=== PATIENT | male | born 1940 | race Caucasian/White ===

== ENCOUNTER 2023-09-17 06:32 | Inpatient (IN) | payer MEDICARE, OTHER, SELFPAY ==
[2023-09-17] VITALS (7 sets, daily range): BP systolic 96–147; BP diastolic 58–86; PULSE 101–110; RESP 14–30; TEMP 36.2–37.7; O2SAT 92–98; BMI 35.7
--- NOTE | 2023-09-17 | ECG_ITS ---
Test Reason : SOB Blood Pressure : / mmHG Vent. Rate : 109 BPM Atrial Rate : 109 BPM P-R Int : 120 ms QRS Dur : 116 ms QT Int : 362 ms P-R-T Axes : 000 -25 113 degrees QTc Int : 487 ms Sinus tachycardia Left ventricular hypertrophy with QRS widening and repolarization abnormality ( Vichy product ) Cannot rule out Septal infarct , age undetermined Abnormal ECG No previous ECGs available Referred By: Generic ED Physician Electronically Signed By:Leon Marquez
--- NOTE | ~2023-09-17 | XR_ITS ---
EXAMINATION: XR CHEST CLINICAL INFORMATION: Central line placement COMPARISON: Chest x-ray earlier same day TECHNIQUE: Frontal view of the chest was obtained. FINDINGS: Central venous catheter tip in region of SVC right atrial junction. No pneumothorax. Endotracheal tube 4.6 cm above radha. There is opacification of the left lower lobe not seen previously silhouetting the left hemidiaphragm medially Right lung clear. Cardiomediastinal silhouette normal except for calcification of the dorsal aorta. XR/XR chest 1V IMPRESSION: 1. Central venous catheter tip in region of SVC right atrial junction. No pneumothorax. 2. Endotracheal tube 4.6 cm above radha. 3. Left lower lobe opacity not seen previously. Question atelectasis versus pneumonia
--- NOTE | ~2023-09-17 | XR_ITS ---
EXAMINATION: XR CHEST CLINICAL INFORMATION: Endotracheal tube placement S radiograph from 09/17/2023, CT chest from 09/17/2023 COMPARISON: None available. TECHNIQUE: Frontal view of the chest was obtained. FINDINGS: Endotracheal tube approximately 7.3 cm from the level of radha. Enteric tube courses below left hemidiaphragm into the stomach. Bilateral low lung volumes. Prominent interstitial lung markings. No pneumothorax. Small bilateral pleural effusions. Trachea is midline. Cardiac mediastinal silhouette is stable. Aorta demonstrates atherosclerotic calcifications. Multilevel degenerative changes of the thoracolumbar spine. Soft tissues are unremarkable. XR/XR chest 1V IMPRESSION: 1. Endotracheal tube approximately 7.3 cm from the level of radha. 2. Enteric tube courses below left hemidiaphragm into the stomach. 3. Bilateral low lung volumes. 4. Prominent interstitial lung markings. 5. Small bilateral pleural effusions.
--- NOTE | ~2023-09-17 | CT_ITS ---
EXAMINATION: CT CHEST WITHOUT CONTRAST CLINICAL INFORMATION: Evaluate for pneumonia. COMPARISON: Chest x-ray 09/17/2023. TECHNIQUE: Multidetector volumetric CT imaging of the chest was done. Axial MIP volume rendering provided. Sagittal and coronal reformatted images were obtained. This CT examination was performed using dose optimization techniques as appropriate, variously including the following: *Automated exposure control *Adjustment of mA and/or kV according to patient size (this includes techniques or standardized protocols for targeted exams where dose is matched to indication/reason for exam; i.e. extremities or head) *Use of iterative reconstruction technique DLP: 617 mGy-cm. FINDINGS: Exam is limited by image-degrading motion artifact. LUNGS AND PLEURAL SPACES: There are moderate sized pleural effusions with adjacent mild consolidation. Minimal pleural-based opacity measuring less than 5 mm in the anterior aspect of the right middle lobe. MEDIASTINUM: There is calcification of the dorsal aorta. Heart size is unremarkable. No pericardial effusion. Esophagus is unremarkable. No significant lymphadenopathy. Thoracic inlet unremarkable. CORONARY ARTERY CALCIFICATION: None visualized on this study. AXILLA: No lymphadenopathy. UPPER ABDOMEN: Unremarkable. OSSEOUS STRUCTURES: Compression fracture of the T12 vertebral body which appears old/chronic. Degenerative disc changes present at T12-L1 with vacuum disc phenomenon noted. CT/CT chest wo IV con IMPRESSION: 1. Moderate-sized bilateral pleural effusions with adjacent mild consolidation. Likely atelectasis but cannot exclude bilateral pneumonia. 2. Minimal pleural-based nodular opacity in the right middle lobe. Suspect scarring and/or rounded atelectasis. The Fleischner Society recommendations for management of pulmonary nodules are based on average nodule size and patient risk category as follows: Average nodule size 4 - 6 mm: Low Risk Patient: Follow up CT at 12 months; if unchanged, no further follow up. High Risk Patient: Initial follow up CT at 6-12 months, then at 18-24 months if no change. 3. Old/chronic compression fracture T12 vertebral body. 4. Degenerative disc disease at T12-L1. 5. Exam limited by motion artifact. 6. Coronary artery calcifications. Fleischner guidelines were followed.
--- NOTE | ~2023-09-17 | XR_ITS ---
EXAMINATION: XR CHEST CLINICAL INFORMATION: Shortness of breath COMPARISON: None available. TECHNIQUE: Frontal view of the chest was obtained. FINDINGS: Mild increase in interstitial markings bilaterally. Calcification of the dorsal aorta. Cardiac mediastinal silhouette otherwise normal. Bone and soft tissues unremarkable. XR/XR chest 1V IMPRESSION: Mild increase in interstitial markings bilaterally. This could reflect mild pulmonary edema.
--- NOTE | 2023-09-17 07:07 | ED.SOB ---
HPI - SOB/Dyspnea General Chief Complaint: Dyspnea Stated Complaint: SOB Time Seen by Provider: 09/17/23 07:01 Source: patient and EMS Mode of arrival: EMS History of Present Illness ED Provider: Dr Freed HPI Narrative: 82-year-old male brought in from long-term care facility for shortness of breath since this morning, EMS found patient has 79% on room air and placed on 3 L nasal cannula with good response. Patient denies coughing/fever/chills and denies any GI or symptoms. Related Data Allergies Allergy/AdvReac Type Severity Reaction Status Date / Time No Known Allergies Allergy Verified 09/17/23 06:47 Review of Systems Review of Systems: Pertinent positives and negatives as stated in HPI PMF Past Medical History Source: nursing notes reviewed Social History Social History Advance Directives: Yes Advance Directives Information Provided: Yes Advance Directives on File: No Physical Exam Vital Signs: Vital Signs: Last Vital Signs Temp 98.6 F 09/17/23 08:31 Pulse 104 H 09/17/23 08:31 Resp 20 09/17/23 08:31 BP 129/75 09/17/23 08:31 Pulse Ox 94 09/17/23 08:31 O2 Del Method Nasal Cannula 09/17/23 08:31 O2 Flow Rate 3 09/17/23 08:31 Oxygen Flow Rate 3 09/17/23 06:43 BMI result Body Mass Index 35.7 VITAL SIGNS: Reviewed. GENERAL: Well developed, well nourished, in no acute distress. HEAD: Normocephalic/atraumatic EYES: PERRLA, EOMI EARS: Ext canals without abnormality NOSE: Nares patent bilateral OROPHARYNX: no oral lesions noted, posterior pharynx clear NECK: Supple, no adenopathy LUNGS: Diminished throughout, tachypnea and increased work of breathing SpO2<92> on 2 L nasal cannula CARDIOVASCULAR: Regular rate and rhythm without noted murmurs, no JVD but noted 2+ pitting edema in right lower extremity ABDOMEN: Soft, non-tender, non-distended with bowel sounds. : Suprapubic catheter in place with patency of cloudy urine with noted sediment MUSCULOSKELETAL: No tenderness, deformities, or effusions noted on gross inspection. EXTREMITIES: No cyanosis, clubbing or edema. LLE: BKA, no erythema/induration RLE: Erythema noted to lateral aspect of thigh without induration SKIN: Inspection of the skin reveals no rashes NEUROLOGIC: Alert and oriented x 4. Strength and sensation to light touch were grossly intact x 4. Medications Administered Discontinued Medications Generic Name Dose Route Start Last Admin Trade Name Freq PRN Reason Stop Dose Admin Ceftriaxone Sodium 1 gm/ 50 mls @ 100 mls/hr 09/17/23 06:55 09/17/23 08:10 Sodium Chloride IV 09/17/23 07:24 Infused ONCE ONE Infusion Medical Decision Making Medical Decision Making [facility] Narrative: 0712: 82-year-old male with history and clinical presentation, DDX: CHF exacerbation, COPD, viral illness, pneumonia, possible cellulitis. I reviewed all investigations, hematologic indices are chronically stable with a leukocytosis, patient is afebrile, there is a microcytic anemia without history or clinical evidence to suggest acute bleeding, no thrombocytopenia. VBG does not demonstrate any hypercapnia or respiratory acidosis. Chemistry indices negative for ALEXIS there is evidence low sodium/chloride consistent with findings of CHF exacerbation, magnesium is noted to be low and repleted with magnesium sulfate and both BNP/chest x-ray and clinical exam are consistent with CHF exacerbation, patient received 60 mg of Lasix. Patient has also received initial antibiotics. Viral testing negative for influenza/RSV/COVID-19. 0901: I discussed case with inpatient hospitalist who accepts admission Differential Diagnosis Differential Diagnoses: The differential diagnosis associated with the presentation includes Please see the discussion above Admission/Observation Consideration of admission/observation: Escalation of care including admission/observation considered Please see the discussion above Consult Healthcare Provider Management of the patient was discussed with: Hospitalist Please see the discussion above Lab Data [facility] Lab Attestation statement: I reviewed the patient's lab results. Please see the discussion above 09/17/23 07:42 09/17/23 07:42 Labs: Lab Results 09/17/23 09/17/23 Range/Units 07:42 07:48 WBC 13.2 H (4.8-10.8) X10*3/uL RBC 3.67 L (4.60-5.80) X10*6/uL Hgb 9.3 L D (14.0-18.0) g/dl Hct 27.6 L D (42.0-52.0) % MCV 75.2 L (80.0-98.0) fL MCH 25.3 L (27.0-33.0) pg MCHC 33.7 (31.0-36.0) g/dl RDW 15.9 (11.0-16.0) % Plt Count 261 D (160-400) X10*3/uL MPV 8.9 L (9.4-12.4) fL Immature Gran % (Auto) 1.0 H (0.0-0.4) % Neut % (Auto) 82.5 H (45-73) % Lymph % (Auto) 10.8 L (20-40) % [place] % (Auto) 3.1 (2-11) % Eos % (Auto) 2.1 (0-4) % Baso % (Auto) 0.5 (0-2) % Lymph # (Auto) 1.4 (1.2-4.9) X10*3/uL [place] # (Auto) 0.4 (0.1-1.2) X10*3/uL Eos # (Auto) 0.3 (0.0-0.4) X10*3/uL Baso # (Auto) 0.1 (0.0-0.2) X10*3/uL Abs Immat Gran (auto) 0.13 H (0.00-0.03) X10*3/uL Absolute Neuts (auto) 10.9 H (2.0-8.3) x10*3/uL Absolute Nucleated RBC 0.000 (0.0-0.012) X10*3/uL Nucleated RBC % (auto) 0.0 (0.0-0.2) /100WBC VBG pH 7.45 H (7.32-7.43) VBG pCO2 45 mmHg VBG pO2 115 mmHg VBG HCO3 32 H (22-26) mmol/L VBG O2 Saturation 100.0 % VBG Base Excess 7.3 mmol/L Sodium 125 L (135-145) mmol/L Potassium 4.3 (3.3-5.1) mmol/L Chloride 89 L (96-108) mmol/L Carbon Dioxide 26 (22-29) mmol/L Anion Gap 14 (12-20) BUN 14 (9-16) mg/dL Creatinine 0.73 (0.5-1.4) mg/dL Estim Creat Clear Calc 98.2 Estimated GFR > 60 Random Glucose 207 H (60-115) mg/dL Lactic Acid 0.9 (0.5-2.0) mmol/L Calcium 8.6 (8.4-10.2) mg/dL Magnesium 1.4 L* (1.6-2.6) mg/dL Total Bilirubin 0.5 (0.0-1.0) mg/dL AST 8 (5-37) U/L ALT < 5 (0-40) U/L Alkaline Phosphatase 71 (39-117) U/L B-Natriuretic Peptide 615 H (<100) pg/mL Total Protein 6.7 (6.5-8.0) g/dL Albumin 3.6 (3.5-5.0) g/dL Influenza Type A (PCR) NEGATIVE (Negative) Influenza Type B (PCR) NEGATIVE (Negative) RSV RNA Qual (PCR) NEGATIVE (Negative) SARS-CoV-2 RNA (RT-PCR) NEGATIVE (Negative) Independent Interpretation I performed an independent interpretation of an: EKG Interpretation: Sinus tachycardia, HR-109, no STEMI, KS/QTC are within normal limits, QRS prolonged. Radiology Impression Discussion of test interpretation with radiology: I have reviewed the radiologist's reading. Radiologist Impression: Please see the discussion above External Record Review External record reviewed: Outpatient record, Prior outpatient labs and Prior outpatient radiology Chronic Conditions Patient?s care impacted by: Other CHF, COPD, chronic indwelling catheter Critical Care Time Critical Care Time Critical Care Time: Yes Total Critical Care Time: 45 Attestation: I personally attest to this time spent taking care of the patient. Discharge Plan Discharge Clinical Impression: Acute hypoxic respiratory failure, CHF exacerbation Patient Disposition: Admitted As Inpatient Print Language: Salvadorean
[2023-09-17] MEDS: cefTRIAXone sodium 1 GM in 0.9 % Sodium Chloride 50 ML IV (07:48)
[2023-09-17 07:52] LABS: MANUAL DIFF FLAG NO
[2023-09-17 07:56] LABS: Basophils Absolute Auto 0.1 X10*3/uL (0.0-0.2); Basophils Percent Auto 0.5 % (0-2); Eosinophils Absolute Auto 0.3 X10*3/uL (0.0-0.4); Eosinophils Percent Auto 2.1 % (0-4); Hematocrit 27.6 % (42.0-52.0); Hemoglobin 9.3 g/dl (14.0-18.0); Imm Gran Abs Auto 0.13 X10*3/uL (0.00-0.03); Lymphocytes Absolute Auto 1.4 X10*3/uL (1.2-4.9); Lymphocytes Percent Auto 10.8 % (20-40); Mean Corpuscular HGB Conc 33.7 g/dl (31.0-36.0); Mean Corpuscular Hemoglobin 25.3 pg (27.0-33.0); Mean Corpuscular Volume 75.2 fL (80.0-98.0); Mean Platelet Volume 8.9 fL (9.4-12.4); Monocytes Absolute Auto 0.4 X10*3/uL (0.1-1.2); Monocytes Percent Auto 3.1 % (2-11); Neutrophils Absolute Auto 10.9 x10*3/uL (2.0-8.3); Neutrophils Percent Auto 82.5 % (45-73); Platelet Count 261 X10*3/uL (160-400); Red Blood Count 3.67 X10*6/uL (4.60-5.80); Red Cell Distribution Width 15.9 % (11.0-16.0); Venous Blood Gas Refer to POC result; White Blood Count 13.2 X10*3/uL (4.8-10.8)
[2023-09-17 07:56] LABS: VBG Base Excess 7.3 mmol/L; VBG HCO3 32 mmol/L (22-26); VBG pCO2 45 mmHg; VBG pH 7.45 (7.32-7.43); VBG pO2 115 mmHg
[2023-09-17 08:14] LABS: Lactic Acid 0.9 mmol/L (0.5-2.0)
[2023-09-17 08:20] LABS: B Type Natriuretic Peptide 615 pg/mL (<100)
[2023-09-17 08:22] LABS: Alanine Aminotransferase < 5 U/L (0-40); Albumin Level 3.6 g/dL (3.5-5.0); Alkaline Phosphatase 71 U/L (39-117); Anion Gap 14 (12-20); Aspartate Amino Transferase 8 U/L (5-37); Bilirubin Total 0.5 mg/dL (0.0-1.0); Blood Urea Nitrogen 14 mg/dL (9-16); Calcium 8.6 mg/dL (8.4-10.2); Carbon Dioxide 26 mmol/L (22-29); Chloride 89 mmol/L (96-108); Creatinine Clr Calc Pharmacy 98.2; Estimated Glomerular Filt Rate > 60; Glucose Random 207 mg/dL (60-115); Magnesium 1.4 mg/dL (1.6-2.6); Potassium 4.3 mmol/L (3.3-5.1); Sodium 125 mmol/L (135-145); Total Protein 6.7 g/dL (6.5-8.0)
[2023-09-17 08:41] LABS: Influenza A PCR NEGATIVE (Negative); Influenza B PCR NEGATIVE (Negative); Resp Syncy Virus RNA Qual PCR NEGATIVE (Negative); SARS COV2 PCR INHOUSE NEGATIVE (Negative)
[2023-09-17] MEDS: Furosemide 100 MG/10 ML VIAL 60 MG IVPUSH (09:05)
[2023-09-17] MEDS: Magnesium Sulfate/H2O 2 GM/50 ML PIGGYBACK IV (09:05)
--- NOTE | 2023-09-17 10:12 | PHA.MEDREC ---
Pharmacy Consult ? Medication Reconciliation Pharmacy has completed the medication reconciliation. [facility] list [facility] Trulicity 2 injections of the 0.75mg pen (TD=1.5mg) every Monday.
--- NOTE | 2023-09-17 11:19 | P.HPHOSP_ITS ---
History of Present Illness Date of Service: 09/17/23 Attending physician on admission: Roderick Sims Chief Complaint: SOB, hypoxia Addendum: CT of chest found moderate sized bilateral pleural effusions with adjacent mild consolidation, likely atelectasis but can not exclude bilateral pneumonia. Patient with then meet sepsis criteria due to leukocytosis and tachycardia, though patient was adequately treated with broad-spectrum antibiotics in the ED, and lactic acid WNL. Will continue to cover patient with ceftriaxone and add azithromycin, started 09/17/2023. Pt is an 82-year-old male with a PMH significant for?CAD s/p stenting in 2002, aortic stenosis, insulin-dependent type 2 diabetes, HLD, BPH, and chronic suprapubic catheter in place who presents to the ED from SNF for evaluation of shortness of breath and hypoxia. ?Patient reports he was in his normal state of health last night but when he awoke this morning at 06:00 he suddenly felt like he could not breathe. Reports 30+ pack-year smoking history quit 21 years ago, left denies history of COPD and is not on home inhalers or home O2. who is at bedside notes patient's lower right leg appears much more swollen than normal. Patient denies any other symptoms reporting he otherwise feels at baseline. Chronic nonproductive cough at baseline. Denies fever, chills. No nausea, vomiting, abdominal pain. Denies orthopnea. Of note, patient has had a complicated medical history since 03/2022 when he fell and broke his foot that was not initially caught on x-rays. 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 Since then patient has been in and out of rehab. Patient's reports he has been noncompliant with his prosthetic and slowly declined as he is unable/unwilling to care for himself. Of additional note, patient [place] [facility] [place] which showed moderate to severely increased LV wall thickness, low-normal LV systolic function though unable to assess LVEF. Also found moderate diastolic dysfunction and [id number] aortic stenosis. In the ED pt with low-grade temp 100 degrees, tachycardia to 110, tachypnea up to 30, and desatting as low as 92% on 3 L NC. Labs were significant for leukocytosis of 13.2, microcytic anemia of H&H 9.3/27.6, sodium 125, magnesium 1.4, and BNP 615. CXR showed mild increase in interstitial markings bilaterally, likely reflecting mild pulmonary edema. Tested negative for flu, RSV, COVID. EKG demonstrated sinus tachycardia without evidence of significant ST elevations or depressions. Pt was treated with Mag sulfate, ceftriaxone, and furosemide 60 mg IV. Pt will be admitted to the hospital for treatment further evaluation of acute hypoxic respiratory failure in the setting of new onset CHF. Review of Systems 2 Review of Systems: Shortness of breath, difficulty breathing Increased right lower extremity edema Chronic nonproductive cough at baseline Denies fever, chills, nausea, vomiting, abdominal pain No chest pain/pressure, palpitations Denies orthopnea [facility] Medical History Umbilical hernia HLD (hyperlipidemia) GERD (gastroesophageal reflux disease) Suprapubic catheter Insulin dependent type 2 diabetes mellitus CAD (coronary artery disease) Aortic stenosis Social History Household Members: Spouse Housing: Other Housing Other:: Mobile Home Do you presently have visiting nurse or other home services: Yes ( couple times a week ) Patient Tobacco Use Status: Former Tobacco user Tobacco use type: Cigarette Smoked in Last 30 Days: No Use of substances other than those prescribed or required for medical reasons: No Currently Displaying Signs/Symptoms of Drug Intoxication Withdrawal: No Have you been hit, kicked, punched, or otherwise hurt by someone within the past year? If so, by whom?: No Do you feel safe in your current relationship?: No Is there a partner from a previous relationship who is making you feel unsafe now?: No Are you made to feel afraid or neglected: No Advance Directives: Yes Advance Directives Information Provided: Yes Advance Directives on File: No Advance Directives Date on File: 09/17/23 Do you have a plan to hurt others: No Plan Recently lost weight without trying: No How much weight loss: Not applicable Eating poorly because of decreased appetite: No Nutrition screen score: 0 Nutrition Risks: No Nutritional Risk Poor oral hygiene: No Meds Allergies Allergy/AdvReac Type Severity Reaction Status Date / Time No Known Allergies Allergy Verified 09/17/23 06:47 Home Medications ?Medication ?Instructions ?Recorded ?Confirmed ?Last Taken ?Type acetaminophen 325 mg tablet 650 mg PO Q6H PRN Pain 09/17/23 09/17/23 Unknown History aspirin 81 mg tablet,delayed 81 mg PO QAM 09/17/23 09/17/23 Unknown History release bisacodyl 10 mg rectal suppository 10 mg NE DAILY PRN Constipation 09/17/23 09/17/23 Unknown History cholecalciferol (vitamin D3) 25 25 mcg PO QAM 09/17/23 09/17/23 Unknown History mcg (1,000 unit) capsule (Vitamin D3) clotrimazole 1 % lotion 1 appl topical BID 09/17/23 09/17/23 Unknown History dulaglutide 0.75 mg/0.5 mL 1.5 mg subcut TU 09/17/23 09/17/23 Unknown History subcutaneous pen injector (Trulicity) finasteride 5 mg tablet 5 mg PO DAILY 09/17/23 09/17/23 Unknown History furosemide 40 mg tablet 40 mg PO DAILY 09/17/23 09/17/23 Unknown History insulin glargine 100 unit/mL (3 26 unit subcut BEDTIME 09/17/23 09/17/23 Unknown History mL) subcutaneous pen (Basaglar KwikPen U-100 Insulin) insulin lispro 100 unit/mL 26 unit subcut TIDAC 09/17/23 09/17/23 Unknown History subcutaneous solution (Humalog U-100 Insulin) magnesium hydroxide 400 mg/5 mL 30 ml PO DAILY PRN Constipation 09/17/23 09/17/23 Unknown History oral suspension (Milk of Magnesia) metoprolol succinate 100 mg 100 mg PO QAM 09/17/23 09/17/23 Unknown History tablet,extended release 24 hr omeprazole 20 mg capsule,delayed 20 mg PO DAILY 09/17/23 09/17/23 Unknown History release psyllium husk 0.4 gram capsule 0.8 g PO DAILY PRN Constipation 09/17/23 09/17/23 Unknown History (Metamucil) sertraline 25 mg tablet 25 mg PO DAILY 09/17/23 09/17/23 Unknown History simvastatin 40 mg tablet 40 mg PO BEDTIME 09/17/23 09/17/23 Unknown History sodium phosphates 19 gram-7 118 ml NE DAILY PRN Constipation 09/17/23 09/17/23 Unknown History gram/118 mL enema (Fleet Enema) tamsulosin 0.4 mg capsule 0.4 mg PO BEDTIME 09/17/23 09/17/23 Unknown History triamcinolone acetonide 0.1 % 1 appl topical BID 09/17/23 09/17/23 Unknown History topical cream Physical Exam 2 Vital Signs and Narrative: Vital Signs: Last Vital Signs Temp 98.5 F 09/17/23 10:00 Pulse 104 H 09/17/23 10:00 Resp 20 09/17/23 08:31 BP 128/75 09/17/23 10:00 Pulse Ox 94 09/17/23 08:31 O2 Del Method Nasal Cannula 09/17/23 10:00 O2 Flow Rate 3 09/17/23 10:00 Oxygen Flow Rate 3 09/17/23 06:43 BMI result Body Mass Index 35.7 Constitutional: Alert, in no acute distress. Mental Status: Oriented to person, place and time. Eyes: Pupils are equal, round, and reactive to light. Ear, Nose, and Throat: Oropharynx clear, mucous membranes moist. Ears and nose without deformities. Trachea midline. Respiratory: Clear to auscultation bilaterally. No wheezing, rales, or rhonchi. Cardiovascular: S1, S2 regular rhythm, tachy. 3/6 systolic murmur heard at left sternal border. No JVD. Gastrointestinal: Abdomen soft, non-tender, non-distended. Normal bowel sounds. Reducible umbilical hernia. Neurologic: Cranial nerves II-XII are grossly intact bilaterally. No focal neurological deficits. Moves all extremities spontaneously. Skin: Warm, dry. Extremities: 3+ right lower leg pitting edema. Left BKA. Psychiatric: Normal mood and affect. Results Labs 09/18/23 10:02 09/18/23 10:02 Labs: Laboratory Results - last 24 hr 09/17/23 09/17/23 07:42 07:48 MCV 75.2 L MCH 25.3 L MCHC 33.7 RDW 15.9 Plt Count 261 D MPV 8.9 L Immature Gran % (Auto) 1.0 H Neut % (Auto) 82.5 H Lymph % (Auto) 10.8 L [place] % (Auto) 3.1 Eos % (Auto) 2.1 Baso % (Auto) 0.5 Lymph # (Auto) 1.4 [place] # (Auto) 0.4 Eos # (Auto) 0.3 Baso # (Auto) 0.1 Abs Immat Gran (auto) 0.13 H Absolute Neuts (auto) 10.9 H Absolute Nucleated RBC 0.000 Nucleated RBC % (auto) 0.0 VBG pH 7.45 H VBG pCO2 45 VBG pO2 115 VBG HCO3 32 H VBG O2 Saturation 100.0 VBG Base Excess 7.3 Anion Gap 14 Estim Creat Clear Calc 98.2 Estimated GFR > 60 Random Glucose 207 H Lactic Acid 0.9 Calcium 8.6 Magnesium 1.4 L* Total Bilirubin 0.5 AST 8 ALT < 5 Alkaline Phosphatase 71 B-Natriuretic Peptide 615 H Total Protein 6.7 Albumin 3.6 Influenza Type A (PCR) NEGATIVE Influenza Type B (PCR) NEGATIVE RSV RNA Qual (PCR) NEGATIVE SARS-CoV-2 RNA (RT-PCR) NEGATIVE Imaging Radiologist's Impressions: Impressions Chest X-Ray 09/17/23 07:49 IMPRESSION: Mild increase in interstitial markings bilaterally. This could reflect mild pulmonary edema. Assessment and Plan (1) CHF exacerbation: Status: Acute Plan Pt is an 82-year-old male with a PMH significant for?CAD s/p stenting in 2002, aortic stenosis, insulin-dependent type 2 diabetes, HLD, BPH, and chronic suprapubic catheter in place who presents to the ED from SNF for evaluation of shortness of breath and hypoxia. ?Pt will be admitted to the hospital for treatment further evaluation of acute hypoxic respiratory failure in the setting of new onset CHF. Acute hypoxic respiratory failure in the setting of new onset CHF Patient with SOB, desatting into 70s on RA, increased lower leg edema, elevated BNP, CXR with pulmonary edema [place] [facility] [place] systolic function low normal though unable to assess LVEF; also showed moderate diastolic dysfunction and moderate to severe aortic stenosis Review of records indicates Pro-BNP [place] 3884 [place] [facility] [place] Patient given Lasix 60 mg IV in ED Her treat with Lasix 40 mg b.i.d. Follow electrolytes, Mag, I/O Daily weights Cardiology consult Monitor on telemetry Hyponatremia Pt's sodium 125 at time of presentation Likely in the setting of CHF, though patient with long history of similar hyponatremia Treat with diuretics as above 1,500 ml fluid restriction Will start on valsartan 40mg p.o. bid Closely monitor sodium levels Leukocytosis WBCs 13.2 at time of presentation Unclear etiology: possibly reactionary Pt does not meet sepsis criteria as there is no clear source of infection at this time Pt denies productive cough, polyuria/dysuria, abd pain, N/V/D Review or records indicates WBCs [place] 13.4 [place] [facility] [place] Lactic acid WNL 0.9 Patient received empiric ceftriaxone in the ED Will hold on additional antibiotics pending additional workup Will check procalcitonin, CT of chest Hypomagnesemia Magnesium 1.4 at time of presentation Given Mag 2 g IV in the ED Trend labs, replenish as necessary Insulin-dependent type 2 diabetes SSI, Lantus Diabetic diet HLD Continue statin BPH Continue tamsulosin DNI Attending:?Dr. Sims DVT Prophylaxis: Lovenox Pt will require a hospitalization of at least two nights for treatment of?acute hypoxic respiratory failure in the setting of new onset CHF. Patient will require hospitalization due to administration of supplemental oxygen, IV diuretics, close monitoring of labs and cardiac function, and specialist consultation with Cardiology. Quality Stroke Does the patient have a stroke diagnosis?: No VTE Prior VTE?: No VTE Risk Level:: Medical - moderate - high VTE Device Contraindication: Treatment Not Indicated VTE Drug Contraindication: N/A - Med Ordered
[2023-09-17 13:22] LABS: Procalcitonin 0.03 ng/mL
--- NOTE | 2023-09-17 13:26 | PC.NURSE ---
patient cheng cath emptied initially at 09 when patient given iv lasix. patient cheng cath emptied now of 2100 ml of urine, as charted in intake and output
[2023-09-17] MEDS: Valsartan 40 MG TABLET PO ×2 (14:35→22:19)
[2023-09-17 15:15] LABS: Anion Gap 15 (12-20); Blood Urea Nitrogen 14 mg/dL (9-16); Calcium 8.6 mg/dL (8.4-10.2); Carbon Dioxide 28 mmol/L (22-29); Chloride 86 mmol/L (96-108); Creatinine Clr Calc Pharmacy 95.5; Estimated Glomerular Filt Rate > 60; Glucose Random 317 mg/dL (60-115); Potassium 4.3 mmol/L (3.3-5.1); Sodium 125 mmol/L (135-145)
[2023-09-17] MEDS: Enoxaparin Sodium 40 MG/0.4 ML SYRINGE SUBCUT (16:05)
[2023-09-17] MEDS: Aspirin Enteric Coated 81 MG TABLET.DR PO (16:05)
[2023-09-17] MEDS: Sertraline HCL 25 MG TABLET PO (16:06)
[2023-09-17] MEDS: Omeprazole 20 MG CAPSULE.DR PO (16:06)
[2023-09-17] MEDS: Metoprolol Succinate ER 100 MG TAB.ER.24H PO (16:06)
[2023-09-17] MEDS: Cholecalciferol (Vitamin D3) 25 MCG TABLET PO (16:06)
[2023-09-17] MEDS: Finasteride 5 MG TABLET PO (16:11)
[2023-09-17 17:44] LABS: Magnesium 1.7 mg/dL (1.6-2.6)
[2023-09-17 17:46] LABS: Glucose, Whole Blood 331 mg/dL (60-115)
[2023-09-17] MEDS: Furosemide 40 MG/4 ML VIAL IVPUSH (18:49)
[2023-09-17] MEDS: Insulin Lispro 100 UNIT/ML 3 ML VIAL SUBCUT ×2 (18:49→22:10)
[2023-09-17 18:52] LABS: Glucose, Whole Blood 313 mg/dL (60-115)
[2023-09-17] MEDS: Azithromycin 500 MG in 0.9 % Sodium Chloride 250 ML 125 MG IV (19:26)
[2023-09-17 21:34] LABS: Glucose, Whole Blood 439 mg/dL (60-115)
[2023-09-17] MEDS: Tamsulosin HCL 0.4 MG CAPSULE PO (21:35)
[2023-09-17] MEDS: Acetaminophen 325 MG TABLET 650 MG PO (21:35)
[2023-09-17] MEDS: Insulin Glargine,Hum.rec.anlog 100 UNIT/ML 10 ML VIAL 18 UNIT SUBCUT (21:35)
[2023-09-17] MEDS: Atorvastatin Calcium 20 MG TABLET PO (21:35)
--- NOTE | 2023-09-17 21:38 | PC.NURSE ---
Eros text sent to Dr. Dai regarding POC 439. Pending order
[2023-09-17] MEDS: Insulin Regular, Human 100 UNIT/ML 3 ML VIAL IVPUSH (22:08)
[2023-09-17 22:23] LABS: Appearance Urine Clear; Color Urine Yellow; Glucose Urine UA 100 mg/dL (Negative); Leukocyte Esterase Urine Moderate (2+) (Negative); Nitrite Urine Negative (Negative); Specific Gravity - Urine 1.015 (1.005-1.025); UMIC TRIGGER UACC YES; Urine Blood Small (1+) (Negative); Urine Ketones Negative (Negative); Urine Protein 100 (2+) mg/dL (Neg-Trace)
[2023-09-17 22:44] LABS: Bacteria Urine None Seen (None Seen); UACC Culture Trigger YES; WBC Urine >50 /HPF (0-5)
[2023-09-18] VITALS (21 sets, daily range): BP systolic 64–148; BP diastolic 28–99; PULSE 72–98; RESP 15–20; TEMP 35–38.5; O2SAT 94–100; BMI 35.9; BMI 34.2
--- NOTE | 2023-09-18 | ECG_ITS ---
Test Reason : RHYTHM CHANGE Blood Pressure : / mmHG Vent. Rate : 098 BPM Atrial Rate : 098 BPM P-R Int : 118 ms QRS Dur : 124 ms QT Int : 396 ms P-R-T Axes : -05 -25 179 degrees QTc Int : 505 ms Normal sinus rhythm Minimal voltage criteria for LVH, may be normal variant ( Juan Pablo product ) Cannot rule out Anteroseptal infarct (cited on or before 17-SEP-2023) Abnormal ECG When compared with ECG of 17-SEP-2023 06:54, No significant changes seen Referred By: Donnie Wagoner Electronically Signed By:DENISA SANDERS
[2023-09-18] MEDS: 0.9 % Sodium Chloride Flush 3 ML SYRINGE IVFLUSH ×3 (01:57→16:03)
[2023-09-18] MEDS: Omeprazole 20 MG CAPSULE.DR PO (06:19)
[2023-09-18] MEDS: cefTRIAXone sodium 1 GM in 0.9 % Sodium Chloride 50 ML IV (06:19)
[2023-09-18 06:29] LABS: Hematocrit 24.3 % (42.0-52.0); Hemoglobin 8.1 g/dl (14.0-18.0); Mean Corpuscular HGB Conc 33.3 g/dl (31.0-36.0); Mean Corpuscular Hemoglobin 25.1 pg (27.0-33.0); Mean Corpuscular Volume 75.2 fL (80.0-98.0); Mean Platelet Volume 9.1 fL (9.4-12.4); Platelet Count 283 X10*3/uL (160-400); Red Blood Count 3.23 X10*6/uL (4.60-5.80); Red Cell Distribution Width 15.7 % (11.0-16.0); White Blood Count 14.1 X10*3/uL (4.8-10.8)
[2023-09-18 06:38] LABS: Anion Gap 12 (12-20); Blood Urea Nitrogen 18 mg/dL (9-16); Calcium 8.3 mg/dL (8.4-10.2); Carbon Dioxide 29 mmol/L (22-29); Chloride 87 mmol/L (96-108); Estimated Glomerular Filt Rate > 60; Glucose Random 157 mg/dL (60-115); Magnesium 1.6 mg/dL (1.6-2.6); Potassium 3.8 mmol/L (3.3-5.1); Sodium 124 mmol/L (135-145)
--- NOTE | 2023-09-18 07:00 | CA_ITS ---
Transthoracic Echocardiogram Patient (Last, First, Middle): Colten Mahajan, Gender: Male Date of : 1940 Age: 82 Procedure Date: 09/18/2023 Procedure Type: Transthoracic Echocardiogram Location: ICU Height: 177.8 cm Weight: 107.96 kg BSA: 2.25 m2 Heart Rate: 88 bpm BP: 70 / 28 mmHg Coke Oven Mason: SB Referring MD: Donnie Wagoner MD Symptoms: s/p cardiac arrest Study Quality: Adequate ECG Rhythm: Sinus Conclusions: - Normal left ventricular cavity size. There is normal left ventricular wall thickness. The left ventricular systolic function is mildly decreased. The visually estimated ejection fraction is between 40-45%. - Regional wall motion abnormalities can not be excluded due to suboptimal endocardial definition in particular distal anterior and apical hypokinesis cannot be ruled out. - There is severe aortic valve stenosis. The peak aortic velocity is 3.73 m/s with a calculated peak gradient of 56 mmHg. The mean gradient is 33 mmHg. The aortic valve area is 0.59 cm2. Findings Left Ventricle Normal left ventricular cavity size. There is normal left ventricular wall thickness. The left ventricular systolic function is mildly decreased. The visually estimated ejection fraction is between 40-45%. Regional wall motion abnormalities can not be excluded due to suboptimal endocardial definition. Abnormal diastolic function is noted. Spectral Doppler is indicative of a restrictive filling pattern. Elevated filling pressures. Right Ventricle Normal right ventricular cavity size and systolic function. Atria The left atrium is likely dilated. The right atrium is normal in size. Aortic Valve There is severe calcification of the aortic valve. There is severe aortic valve stenosis. The peak aortic velocity is 3.73 m/s with a calculated peak gradient of 56 mmHg. The mean gradient is 33 mmHg. The aortic valve area is 0.59 cm2. There is no aortic valve regurgitation. Mitral Valve The mitral valve appears normal. There is trace mitral valve regurgitation. There is no mitral valve stenosis. Pulmonic Valve The pulmonic valve is likely normal. Tricuspid Valve Likely normal tricuspid valve structure and function. Tricuspid regurgitation envelope is inadequate for calculation of right ventricular systolic pressure. Indeterminate right atrial pressure. Mild to moderate pulmonary hypertension is present. Great Vessels There is mild dilatation of the sinuses of Valsalva measuring 3.90 cm and mild dilatation of the ascending aorta measuring 4.00 cm. Venous The inferior vena cava is dilated and does not collapse with inspiration. Pericardium/Pleural There is no evidence of pericardial effusion. Prior Study Comparison No prior study available for comparison. Measurements 2D Linear Measurements IVSd: 0.91 0.6-0.9/0.6-1.0 cm LVIDd: 5.31 3.9-5.3/4.2-5.9 cm LVIDd Index: 2.36 2.4-3.2/2.2-3.1 cm/m2 LVIDs: 4.27 2.0-3.6 cm LVPWd: 0.94 0.7-1.1 cm LA Diam: 4.40 2.7-3.8/3.0-4.0 cm LAIDs Index: 1.96 1.5-2.3 cm/m2 LV Mass: 224.76 67-162/88-224 g LV Mass Index: 99.89 43-95/49-115 g/m2 LVOT Diam: 2.30 3.0+(-)1.3 cm 2D Systolic Function EF 4C: 42.20 >55% EF 2C: 32.20 >55% EF BiP: 39.40 >55% Mitral Valve MV Pk E: 1.00 MV PK A: 0.39 MV Decel Time: 163.00 E/A: 2.60 E'Medial: 4.19 E/E' Med: 23.80 PHT: 48.00 MVA PHT: 4.58 Decel Putnam: 6.14 Aortic Valve AoV Pk Cedrick: 3.73 AoV Mn Cedrick: 2.69 AoV VTI: 0.71 AoV Pk Grad: 56.00 Aov Mn Grad: 33.00 ANNA Cont.VTI: 0.59 LVOT LVOT Pk Cedrick: 0.57 LVOT Mn Cedrick: 0.38 LVOT VTI: 0.10 LVOT Pk Grad: 1.00 LVOT Mn Grad: 1.00 LVOT Diam: 2.30 LVOT Area: 4.15 Diastolic Function MV Pk E: 1.00 MV Pk A: 0.39 E/A: 2.60 E'Medial: 4.19 E/E' Med: 23.80 Right Ventricle TAPSE (mm): 18.30 TVS' Cedrick: 9.80 Tricuspid Valve TR Pk Cedrick: 3.01 TR Pk Grad: 36.00 RA Press: 15.00 RVSP: 51.00 Great Vessels Aorta Sinus of Valsalva: 3.90 2.0-3.5 cm Ao Asc: 4.00 2.1-3.4 cm Pulmonary Valve PV Pk Cedrick: 0.61 Peak PV Grad: 1.00 Updated in Other Vendor System with Status of Final Leon Marquez MD electronically signed on 09/18/2023 1:42:11 PM with status of Final
[2023-09-18 07:22] LABS: Glucose, Whole Blood 152 mg/dL (60-115)
[2023-09-18] MEDS: Insulin Lispro 100 UNIT/ML 3 ML VIAL SUBCUT ×2 (08:02→12:08)
[2023-09-18] MEDS: Aspirin Enteric Coated 81 MG TABLET.DR PO (08:03)
[2023-09-18] MEDS: Sertraline HCL 25 MG TABLET PO (08:03)
[2023-09-18] MEDS: Finasteride 5 MG TABLET PO (08:03)
[2023-09-18] MEDS: Cholecalciferol (Vitamin D3) 25 MCG TABLET PO (08:03)
[2023-09-18 08:34] LABS: Iron 35 mcg/dL (45-160); Percent Iron Saturation 14 % (15-50); Total Iron Binding Capacity 256 mcg/dL (228-428); Unsaturated Iron Binding 221 ug/dL
[2023-09-18] MEDS: Valsartan 40 MG TABLET PO (08:42)
[2023-09-18] MEDS: Metoprolol Succinate ER 100 MG TAB.ER.24H PO (08:42)
[2023-09-18] MEDS: Furosemide 40 MG/4 ML VIAL IVPUSH (08:42)
[2023-09-18 08:47] LABS: Ferritin 46 ng/mL (20-250)
[2023-09-18 08:49] LABS: B Type Natriuretic Peptide 1309 pg/mL (<100)
--- NOTE | 2023-09-18 09:21 | PC.NURSE ---
Addendum entered by Neva Kelly RN 09/18/23 09:38: VARNISHING UNIT OPERATOR was called before dafne hernandez Original Note: Pt incontinent with BM , RN and HYDRANT SETTER was cleaning the pt , repositioning and pt stated that he his dizzy and became unresponsive . Dafne hernandez was called at 9:08 .
--- NOTE | 2023-09-18 09:32 | PM.EVENT ---
Event Note Date of Service: 09/18/23 Event Note: patient became pulseless, code blue called, patient DNI but not DNR, ACLS started, called patient's , Paty, who requested change of status to full code. Time Spent With Patient Time: Total time managing care of this patient today ____ minutes.
[2023-09-18] MEDS: Amiodarone HCL 900 MG in 0.9 % Sodium Chloride 500 ML 34.53 MG IVCONT (09:34)
[2023-09-18] MEDS: Norepinephrine Bitartrate/D5W 8 MG/250 ML PLAST..BAG 20.29 MG IV (09:38)
[2023-09-18] MEDS: propofoL 1,000 MG/100 ML VIAL 19.48 MG IVCONT ×2 (10:06→16:03)
[2023-09-18 10:07] LABS: VBG Base Excess 0.5 mmol/L; VBG HCO3 25 mmol/L (22-26); VBG pCO2 43 mmHg; VBG pH 7.37 (7.32-7.43); VBG pO2 43 mmHg
[2023-09-18 10:14] LABS: Hematocrit 25.6 % (42.0-52.0); Hemoglobin 8.4 g/dl (14.0-18.0); Mean Corpuscular HGB Conc 32.8 g/dl (31.0-36.0); Mean Corpuscular Hemoglobin 25.2 pg (27.0-33.0); Mean Corpuscular Volume 76.9 fL (80.0-98.0); Mean Platelet Volume 9.2 fL (9.4-12.4); Platelet Count 375 X10*3/uL (160-400); Red Blood Count 3.33 X10*6/uL (4.60-5.80)
--- NOTE | 2023-09-18 10:20 | W.ED.CONS.HO ---
Consult Details Consult Details: CODE BLUE Procedures Intubation Intubation Type:: Endotracheal Tube Insertion Intubation Date:: 09/18/23 Intubation Time:: 09:20 Time out performed: No sedative: Etomidate Mg Given: 20 paralytic: Rocuronium Mg Given: 100 Laryngoscope: fiber optic video scope ET Tube Size: 7.5 ET Tube Uncuffed: No Tube Secured Depth (cm): 23 Tube Secured Location: teeth Tube Placement Confirmation: visualized tube passing through cords, equal breath sounds bilaterally, no breath sounds over epigastrium and confirmation by capnometry Patient Tolerated Procedure: well Intubation Complications: none
[2023-09-18 10:21] LABS: White Blood Count 30.3 X10*3/uL (4.8-10.8)
[2023-09-18 10:29] LABS: Lactic Acid 5.7 mmol/L (0.5-2.0)
[2023-09-18 10:32] LABS: Alanine Aminotransferase 88 U/L (0-40); Alkaline Phosphatase 60 U/L (39-117); Anion Gap 20 (12-20); Aspartate Amino Transferase 120 U/L (5-37); Bilirubin Total 0.5 mg/dL (0.0-1.0); Blood Urea Nitrogen 20 mg/dL (9-16); Calcium 7.7 mg/dL (8.4-10.2); Carbon Dioxide 21 mmol/L (22-29); Chloride 88 mmol/L (96-108); Creatinine Clr Calc Pharmacy 84.5; Estimated Glomerular Filt Rate > 60; Glucose Random 278 mg/dL (60-115); Magnesium 1.7 mg/dL (1.6-2.6); Phosphorus 4.9 mg/dL (2.7-4.5); Potassium 3.9 mmol/L (3.3-5.1); Sodium 125 mmol/L (135-145); Total Protein 5.5 g/dL (6.5-8.0)
--- NOTE | 2023-09-18 10:33 | MHC.CM.PN ---
Addendum entered by Jocelyn Granados 09/18/23 13:04: Pt will be transferred to [facility] for higher level of care. Original Note: Pt emergently intubated and transferred to the ICU prior to CM intake assessment being done. Pt is a LT resident of [facility], return referral placed in [facility]. Copy of HCP obtained from [facility], now on file. This CM will call pts HCP to complete CM assessment and address IMM.
--- NOTE | 2023-09-18 10:48 | PM.EVENT ---
Event Note Date of Service: 09/18/23 Event Note: 82yo M with CAD s/p RCA PCI 2002, severe aortic stenosis followed by Dr Calixto [place] [facility], and DM2 who has been at [facility] since September. He was sent in with dyspnea + hypoxia and noted to be fluid-overloaded. He was also noted to have bilateral pleural effusions with consolidation that could be atelectasis or pneumonia. PCT low but WBC elevated. Na was 125 but some degree of this is chronic and he is on a 1.5L fluid restriction at the [facility]. He was admitted to the [facility] with IV furosemide and IV ceftriaxone + azithromycin. This morning when I rounded on him he was awake, alert, and denying any dyspnea or chest pain. He had diuresed approximately -1.6L. Within 2 minutes after I left the room, he became altered and HR slowed down to the 30s. OUTBOUND TELEMARKETER was called. He subsequently became apneic and pulseless and CPR was started. Underlying rhythm was junctional bradycardia. He was ventilated by bag-valve mask and given IV epinephrine with chest compressions. He had some spontaneous breathing activity and return of pulse but lost these 2x, prompting 2 more rounds of epinephrine and chest compressions with ROSC. He subsequently developed monomorphic Vtach and was given amiodarone 300 mg, then 150 mg, then started on a drip. Rhythm subsequently became AF with rate in the 110s. BP 132 but then dropped to 58. He was started on IV NS via pressure bag then norepinephrine drip. Code status was clarified with his [he had been listed as DNI] and she insisted that he be intubated. ED physician Dr Guerra directed RSI/intubation, which was achieved using etomidate 20 mg + rocuronium 100 mg for indction/paralysis. He was transferred to the ICU for further care. Time Spent With Patient Time: Total time managing care of this patient today ____ minutes.
[2023-09-18 10:55] LABS: B Type Natriuretic Peptide 858 pg/mL (<100)
[2023-09-18 10:58] LABS: Troponin-I High Sensitivity 4767.1 ng/L (<3.5-35.0)
[2023-09-18 10:58] LABS: Venous Blood Gas Refer to POC result
[2023-09-18 10:59] LABS: SLIDE REVIEW MANUAL DIFF
[2023-09-18 11:03] LABS: Band Neutrophils Percent 14 % (3-5); Basophils Abs Manual 0.6 X10*3/uL (0.0-0.2); Basophils Percent Manual 2 % (0-2); Lymphocytes Absolute Manual 4.2 X10*3/uL (1.2-4.9); Lymphocytes Percent Manual 14 % (20-40); Monocytes Absolute Manual 0.9 X10*3/uL (0.1-1.2); Monocytes Percent Manual 3 % (2-11); Neutrophils Absolute Manual 24.5 X10*3/uL (2.0-8.3); Neutrophils Percent Manual 67 % (45-73)
[2023-09-18 11:05] LABS: Burr Cells 3+ (>5) /OIF; Ovalocytes 1+ (5-14) /OIF; RBC Morphology NOTED; Schistocytes 1+ (0-2) /OIF
[2023-09-18 11:06] LABS: Platelet Estimate NORMAL (NORMAL); Platelet Morphology Comment NORMAL
--- NOTE | 2023-09-18 11:30 | PM.CNCAR ---
History of Present Illness History of Present Illness Date of Service: 09/18/23 Requesting physician: Donnie Wagoner Chief complaint: New onset heart failure, , cardiac arrest. Narrative: 82-year-old gentleman who presented from nursing facility with shortness of breath. He has known history of moderate severe aortic valve stenosis and has been following with Dr. Calixto at [facility]. Most of the history is taken from the and son who were at bedside. He complained of some shortness of breath yesterday and was brought in. Clinically appeared to be in congestive heart failure and was diuresed. Today morning he passed stools and was being cleaned when he said he is feeling dizzy and then had PEA arrest. CPR was started and after epinephrine he did have wide complex tachycardia. Was intubated and sent to the ICU. He is currently on low-dose Levophed and is on a propofol drip. As per the , he has no dementia or memory issues. He has mostly in a wheelchair though. She said they have been seeing Dr. Calixto regularly and he was being monitored for aortic stenosis symptoms. He did not have any symptoms previously. X-ray, imaging and EKGs reviewed. [facility] Past Medical History Medical History (Updated 09/18/23 @ 11:53 by Donnie Wagoner MD) Umbilical hernia HLD (hyperlipidemia) GERD (gastroesophageal reflux disease) Suprapubic catheter Insulin dependent type 2 diabetes mellitus CAD (coronary artery disease) Aortic stenosis Social History Social History Household Members: Spouse Housing: Other Housing Other:: Mobile Home Do you presently have visiting nurse or other home services: Yes ( couple times a week ) Patient Tobacco Use Status: Former Tobacco user Tobacco use type: Cigarette Smoked in Last 30 Days: No Use of substances other than those prescribed or required for medical reasons: No Currently Displaying Signs/Symptoms of Drug Intoxication Withdrawal: No Have you been hit, kicked, punched, or otherwise hurt by someone within the past year? If so, by whom?: No Do you feel safe in your current relationship?: No Is there a partner from a previous relationship who is making you feel unsafe now?: No Are you made to feel afraid or neglected: No Advance Directives: Yes Advance Directives Information Provided: Yes Advance Directives on File: No Advance Directives Date on File: 09/17/23 Do you have a plan to hurt others: No Plan Recently lost weight without trying: No How much weight loss: Not applicable Eating poorly because of decreased appetite: No Nutrition screen score: 0 Nutrition Risks: No Nutritional Risk Poor oral hygiene: No Meds Allergies Allergy/AdvReac Type Severity Reaction Status Date / Time No Known Allergies Allergy Verified 09/17/23 06:47 Active Medications: Current Medications Acetaminophen (Acetaminophen 325 Mg Tablet) 650 mg PO Q6H PRN PRN Reason: Pain, Mild (Pain Scale 1-3) Last Admin: 09/17/23 21:35 Dose: 650 mg Chlorhexidine Gluconate (Chlorhexidine Gluc Oral Rinse 15 Ml Mouthwash) 15 ml BUCCAL TID MESFIN Enoxaparin Sodium (Enoxaparin Sodium 40 Mg/0.4 Ml Syringe) 40 mg SUBCUT Q24H MESFIN Last Admin: 09/17/23 16:05 Dose: 40 mg Furosemide (Furosemide 40 Mg/4 Ml Vial) 40 mg IVPUSH BID@0900,1800 MESFIN; Protocol Last Admin: 09/18/23 08:42 Dose: 40 mg Glucose (Glucose Gel 15 Gm Gel..Gram.) 15 gm PO Q15M PRN; Protocol PRN Reason: per Hypoglycemia Standing Ord. Dextrose (D10) 250 mls @ 750 mls/hr IV Q15M PRN; Protocol PRN Reason: per Hypoglycemia Standing Ord. Ceftriaxone Sodium 1 gm/ (Sodium Chloride) 50 mls @ 100 mls/hr IV Q24H [facility] Last Infusion: 09/18/23 07:28 Dose: Infused Amiodarone HCl 900 mg/ Sodium (Chloride) 518 mls @ 34.533 mls/hr IVCONT .Q15H1M MESFIN; Protocol Last Admin: 09/18/23 09:34 Dose: 1 mg/min, 34.53 mls/hr Propofol (Diprivan) 1,000 mg in 100 mls @ 0 mls/hr IVCONT .Q0M MESFIN; Protocol Last Admin: 09/18/23 10:06 Dose: 30 mcg/kg/min, 19.48 mls/hr Norepinephrine Bitartrate (Levophed) 8 mg in 250 mls @ 0 mls/hr IV .Q0M MESFIN; Protocol Last Admin: 09/18/23 09:38 Dose: 0.1 mcg/kg/min, 20.29 mls/hr Insulin Glargine (Insulin Glargine,Hum.Rec.Anlog 100 Unit/Ml 10 Ml Vial) 24 unit SUBCUT BEDTIME [facility] Insulin Human Lispro (Insulin Lispro 100 Unit/Ml 3 Ml Vial) 0 unit SUBCUT QIDACHS [facility]; Protocol Last Admin: 09/18/23 08:02 Dose: 4 unit Ondansetron HCl (Ondansetron Hcl 4 Mg/2 Ml Vial) 4 mg IVPUSH Q8H PRN PRN Reason: Nausea and Vomiting Pharmacy Consult (Consult Rx Vancomycin Dosing) 1 each MISCELLANE DAILY PRN PRN Reason: Consult order Sodium Chloride (0.9 % Sodium Chloride Flush 3 Ml Syringe) 3 ml IVFLUSH QSHIFT [facility] Last Admin: 09/18/23 08:43 Dose: 3 ml Tamsulosin HCl (Tamsulosin Hcl 0.4 Mg Capsule) 0.4 mg PO BEDTIME [facility] Last Admin: 09/17/23 21:35 Dose: 0.4 mg Home Medications ?Medication ?Instructions ?Recorded ?Confirmed ?Last Taken ?Type acetaminophen 325 mg tablet 650 mg PO Q6H PRN Pain 09/17/23 09/17/23 Unknown History aspirin 81 mg tablet,delayed 81 mg PO QAM 09/17/23 09/17/23 Unknown History release bisacodyl 10 mg rectal suppository 10 mg CO DAILY PRN Constipation 09/17/23 09/17/23 Unknown History cholecalciferol (vitamin D3) 25 25 mcg PO QAM 09/17/23 09/17/23 Unknown History mcg (1,000 unit) capsule (Vitamin D3) clotrimazole 1 % lotion 1 appl topical BID 09/17/23 09/17/23 Unknown History dulaglutide 0.75 mg/0.5 mL 1.5 mg subcut TU 09/17/23 09/17/23 Unknown History subcutaneous [facility] finasteride 5 mg tablet 5 mg PO DAILY 09/17/23 09/17/23 Unknown History furosemide 40 mg tablet 40 mg PO DAILY 09/17/23 09/17/23 Unknown History insulin glargine 100 unit/mL (3 26 unit subcut BEDTIME 09/17/23 09/17/23 Unknown History mL) subcutaneous pen (Basaglar KwikPen U-100 Insulin) insulin lispro 100 unit/mL 26 unit subcut TIDAC 09/17/23 09/17/23 Unknown History subcutaneous solution (Humalog U-100 Insulin) magnesium hydroxide 400 mg/5 mL 30 ml PO DAILY PRN Constipation 09/17/23 09/17/23 Unknown History oral suspension (Milk of Magnesia) metoprolol succinate 100 mg 100 mg PO QAM 09/17/23 09/17/23 Unknown History tablet,extended release 24 hr omeprazole 20 mg capsule,delayed 20 mg PO DAILY 09/17/23 09/17/23 Unknown History release psyllium husk 0.4 gram capsule 0.8 g PO DAILY PRN Constipation 09/17/23 09/17/23 Unknown History (Metamucil) sertraline 25 mg tablet 25 mg PO DAILY 09/17/23 09/17/23 Unknown History simvastatin 40 mg tablet 40 mg PO BEDTIME 09/17/23 09/17/23 Unknown History sodium phosphates 19 gram-7 118 ml CO DAILY PRN Constipation 09/17/23 09/17/23 Unknown History gram/118 mL enema (Fleet Enema) tamsulosin 0.4 mg capsule 0.4 mg PO BEDTIME 09/17/23 09/17/23 Unknown History triamcinolone acetonide 0.1 % 1 appl topical BID 09/17/23 09/17/23 Unknown History topical cream Physical Exam Vital Signs: Vital Signs: Last Vital Signs Temp 98.9 F 09/18/23 07:47 Pulse 78 09/18/23 11:00 Resp 20 09/18/23 11:00 BP 102/49 L 09/18/23 11:00 Pulse Ox 100 09/18/23 11:00 O2 Del Method Mechanical Ventil ation 09/18/23 11:00 O2 Flow Rate 2 09/18/23 07:47 FiO2 70 09/18/23 11:00 Oxygen Flow Rate 3 09/17/23 06:43 BMI result Body Mass Index 34.2 GENERAL APPEARANCE: Sedated and intubated. NECK: no carotid bruit, + jugular venous distention. SKIN: no suspicious lesions, warm and dry. HEART: Ejection systolic murmur no 2nd heart sound, regular rate and rhythm. LUNGS: clear to auscultation anteriorly. ABDOMEN: soft, nontender. EXTREMITIES: no edema. Left-sided amputation. PERIPHERAL PULSES: equal. NEUROLOGIC: No gross deficits, AAO X 3 Objective Labs and Meds 09/18/23 10:02 09/18/23 10:02 Lab results: Laboratory Results - last 24 hr 09/17/23 09/17/23 09/17/23 07:42 14:59 17:42 WBC RBC Hgb Hct MCV MCH MCHC RDW Plt Count MPV Immature Gran % (Auto) Neut % (Auto) Lymph % (Auto) [place] % (Auto) Eos % (Auto) Baso % (Auto) Lymph # (Auto) [place] # (Auto) Eos # (Auto) Baso # (Auto) Abs Immat Gran (auto) Absolute Neuts (auto) Absolute Nucleated RBC Nucleated RBC % (auto) Neutrophils % (Manual) Band Neutrophils % Lymphocytes % (Manual) Monocytes % (Manual) Basophils % (Manual) Abs Neuts (Manual) Lymphocytes # (Manual) Monocytes # (Manual) Basophils # (Manual) Platelet Estimate Plt Morphology Comment RBC Morphology Ovalocytes [place] Cells Schistocytes Smear Tech's Comments VBG pH VBG pCO2 VBG pO2 VBG HCO3 VBG O2 Saturation VBG Base Excess Sodium 125 L Potassium 4.3 Chloride 86 L Carbon Dioxide 28 Anion Gap 15 BUN 14 Creatinine 0.75 Estim Creat Clear Calc 95.5 Estimated GFR > 60 POC Glucose 331 H Random Glucose 317 H Lactic Acid Calcium 8.6 Phosphorus Magnesium 1.7 Iron TIBC % Saturation Unsat Iron Binding Ferritin Total Bilirubin AST ALT Alkaline Phosphatase Troponin I High Sens B-Natriuretic Peptide Total Protein Albumin Procalcitonin 0.03 Urine Color Urine Appearance Urine pH Ur Specific [place] Urine Protein Urine Glucose (UA) Urine Ketones Urine Blood Urine Nitrite Ur Leukocyte Esterase Urine RBC Urine WBC Ur Squamous Epith Cells Urine Bacteria Hyaline Casts 09/17/23 09/17/23 09/17/23 18:44 21:29 22:17 WBC RBC Hgb Hct MCV MCH MCHC RDW Plt Count MPV Immature Gran % (Auto) Neut % (Auto) Lymph % (Auto) [place] % (Auto) Eos % (Auto) Baso % (Auto) Lymph # (Auto) [place] # (Auto) Eos # (Auto) Baso # (Auto) Abs Immat Gran (auto) Absolute Neuts (auto) Absolute Nucleated RBC Nucleated RBC % (auto) Neutrophils % (Manual) Band Neutrophils % Lymphocytes % (Manual) Monocytes % (Manual) Basophils % (Manual) Abs Neuts (Manual) Lymphocytes # (Manual) Monocytes # (Manual) Basophils # (Manual) Platelet Estimate Plt Morphology Comment RBC Morphology Ovalocytes [place] Cells Schistocytes Smear Tech's Comments VBG pH VBG pCO2 VBG pO2 VBG HCO3 VBG O2 Saturation VBG Base Excess Sodium Potassium Chloride Carbon Dioxide Anion Gap BUN Creatinine Estim Creat Clear Calc Estimated GFR POC Glucose 313 H 439 H* Random Glucose Lactic Acid Calcium Phosphorus Magnesium Iron TIBC % Saturation Unsat Iron Binding Ferritin Total Bilirubin AST ALT Alkaline Phosphatase Troponin I High Sens B-Natriuretic Peptide Total Protein Albumin Procalcitonin Urine Color Yellow Urine Appearance Clear Urine pH 6.0 Ur Specific [place] 1.015 Urine Protein 100 (2+) H Urine Glucose (UA) 100 H Urine Ketones Negative Urine Blood Small (1+) H Urine Nitrite Negative Ur Leukocyte Esterase Moderate (2+) H Urine RBC 3-5 H Urine WBC >50 H Ur Squamous Epith Cells 3-5 Urine Bacteria None Seen Hyaline Casts 3-5 09/18/23 09/18/23 09/18/23 06:02 07:09 09:59 WBC 14.1 H RBC 3.23 L Hgb 8.1 L Hct 24.3 L MCV 75.2 L MCH 25.1 L MCHC 33.3 RDW 15.7 Plt Count 283 MPV 9.1 L Immature Gran % (Auto) Neut % (Auto) Lymph % (Auto) [place] % (Auto) Eos % (Auto) Baso % (Auto) Lymph # (Auto) [place] # (Auto) Eos # (Auto) Baso # (Auto) Abs Immat Gran (auto) Absolute Neuts (auto) Absolute Nucleated RBC 0.000 Nucleated RBC % (auto) 0.0 Neutrophils % (Manual) Band Neutrophils % Lymphocytes % (Manual) Monocytes % (Manual) Basophils % (Manual) Abs Neuts (Manual) Lymphocytes # (Manual) Monocytes # (Manual) Basophils # (Manual) Platelet Estimate Plt Morphology Comment RBC Morphology Ovalocytes [place] Cells Schistocytes Smear Tech's Comments VBG pH 7.37 VBG pCO2 43 VBG pO2 43 VBG HCO3 25 VBG O2 Saturation 66.0 VBG Base Excess 0.5 Sodium 124 L Potassium 3.8 Chloride 87 L Carbon Dioxide 29 Anion Gap 12 BUN 18 H Creatinine 0.74 Estim Creat Clear Calc 97.0 Estimated GFR > 60 POC Glucose 152 H Random Glucose 157 H Lactic Acid Calcium 8.3 L Phosphorus Magnesium 1.6 Iron 35 L TIBC 256 % Saturation 14 L Unsat Iron Binding 221 Ferritin 46 Total Bilirubin AST ALT Alkaline Phosphatase Troponin I High Sens B-Natriuretic Peptide 1309 H Total Protein Albumin Procalcitonin Urine Color Urine Appearance Urine pH Ur Specific [place] Urine Protein Urine Glucose (UA) Urine Ketones Urine Blood Urine Nitrite Ur Leukocyte Esterase Urine RBC Urine WBC Ur Squamous Epith Cells Urine Bacteria Hyaline Casts 09/18/23 10:02 WBC 30.3 H* RBC 3.33 L Hgb 8.4 L Hct 25.6 L MCV 76.9 L MCH 25.2 L MCHC 32.8 RDW 16.0 Plt Count 375 D MPV 9.2 L Immature Gran % (Auto) Cancelled Neut % (Auto) Cancelled Lymph % (Auto) Cancelled [place] % (Auto) Cancelled Eos % (Auto) Cancelled Baso % (Auto) Cancelled Lymph # (Auto) Cancelled [place] # (Auto) Cancelled Eos # (Auto) Cancelled Baso # (Auto) Cancelled Abs Immat Gran (auto) Cancelled Absolute Neuts (auto) Cancelled Absolute Nucleated RBC 0.000 Nucleated RBC % (auto) 0.0 Neutrophils % (Manual) 67 Band Neutrophils % 14 H Lymphocytes % (Manual) 14 L Monocytes % (Manual) 3 Basophils % (Manual) 2 Abs Neuts (Manual) 24.5 H Lymphocytes # (Manual) 4.2 Monocytes # (Manual) 0.9 Basophils # (Manual) 0.6 H Platelet Estimate NORMAL Plt Morphology Comment NORMAL RBC Morphology NOTED Ovalocytes 1+ (5-14) [place] Cells 3+ (>5) Schistocytes 1+ (0-2) Smear Tech's Comments MANUAL DIFF VBG pH VBG pCO2 VBG pO2 VBG HCO3 VBG O2 Saturation VBG Base Excess Sodium 125 L Potassium 3.9 Chloride 88 L Carbon Dioxide 21 L Anion Gap 20 BUN 20 H Creatinine 0.83 Estim Creat Clear Calc 84.5 Estimated GFR > 60 POC Glucose Random Glucose 278 H Lactic Acid 5.7 H* Calcium 7.7 L D Phosphorus 4.9 H Magnesium 1.7 Iron TIBC % Saturation Unsat Iron Binding Ferritin Total Bilirubin 0.5 AST 120 H ALT 88 H Alkaline Phosphatase 60 Troponin I High Sens 4767.1 H* B-Natriuretic Peptide 858 H Total Protein 5.5 L Albumin 3.0 L Procalcitonin Urine Color Urine Appearance Urine pH Ur Specific [place] Urine Protein Urine Glucose (UA) Urine Ketones Urine Blood Urine Nitrite Ur Leukocyte Esterase Urine RBC Urine WBC Ur Squamous Epith Cells Urine Bacteria Hyaline Casts Imaging Radiologist's impression: Impressions Chest CT 09/17/23 13:12 IMPRESSION: 1. Moderate-sized bilateral pleural effusions with adjacent mild consolidation. Likely atelectasis but cannot exclude bilateral pneumonia. 2. Minimal pleural-based nodular opacity in the right middle lobe. Suspect scarring and/or rounded atelectasis. The Fleischner Society recommendations for management of pulmonary nodules are based on average nodule size and patient risk category as follows: Average nodule size 4 - 6 mm: Low Risk Patient: Follow up CT at 12 months; if unchanged, no further follow up. High Risk Patient: Initial follow up CT at 6-12 months, then at 18-24 months if no change. 3. Old/chronic compression fracture T12 vertebral body. 4. Degenerative disc disease at T12-L1. 5. Exam limited by motion artifact. 6. Coronary artery calcifications. Fleischner guidelines were followed. Chest X-Ray 09/18/23 09:40 IMPRESSION: 1. Endotracheal tube approximately 7.3 cm from the level of radha. 2. Enteric tube courses below left hemidiaphragm into the stomach. 3. Bilateral low lung volumes. 4. Prominent interstitial lung markings. 5. Small bilateral pleural effusions. Assessment and Plan (1) CHF exacerbation: Status: Acute (2) Cardiac arrest: Status: Acute Plan 82-year-old with aortic stenosis presenting with CHF who had PEA arrest. He is currently on vent and low dose levophed. No dynamic ECG changes. Doubt that this is ACS. Cause for pulseless electrical activity severe aortic valve stenosis. Detailed discussion with and son. He is known to Dr. Calixto at [facility]. After discussion we have decided to transfer him to [facility] CCU service for further management. If he makes a reasonable recovery then he will need assessment for transcatheter aortic valve replacement. Thank you for allowing me to participate in the care of your patient. Please feel free to contact me if you have any questions. Procedures Date of Service Date of Service: 09/18/23
[2023-09-18 11:33] LABS: MRSA Nasal PCR POSITIVE (Negative); SA Nasal PCR POSITIVE (Negative)
[2023-09-18 11:48] LABS: Glucose, Whole Blood 282 mg/dL (60-115)
--- NOTE | 2023-09-18 11:51 | P.DS_ITS ---
DS: Providers Provider Date of Service: 09/18/23 Date of admission: 09/17/23 12:58 Primary care physician: Alaina Fontenot MD Consults: 09/17/23 13:31 Consult to Cardiology Routine Consulting Provider: [facility] Reason for consultation: New onset CHF; echo @ [facility] [place] on 09/1009/18/23 02:05 Consult to Wound Care Routine Reason for consultation: stage 2 sheered areas to bilat buttocks 09/18/23 07:44 Consult to Nephrology Routine Consulting Provider: [facility] Reason for consultation: hypoNa, CHF 09/18/23 10:01 Consult to Cardiology Routine Consulting Provider: [facility] Reason for consultation: s/p VTach and subsequent cardiac arrest DS: Transfer Hospital Acceptance Reason for Transfer: Aortic stenosis evaluation Name of Facility: [facility] Accepting Provider: Dr. Callahan DS: Diagnosis Discharge Diagnosis (1) CHF exacerbation: Status: Acute (2) Cardiac arrest: Status: Acute (3) Severe aortic stenosis: Status: Acute (4) Acute hypoxic respiratory failure: Status: Acute (5) CAD (coronary artery disease): Status: Acute (6) Insulin dependent type 2 diabetes mellitus: Status: Acute DS: Summary Hospital Course Hospital Course: 82-year-old gentleman with underlying coronary artery disease status post RCA PCI in 2002, severe aortic stenosis followed by Cardiology at [facility], diabetes mellitus admitted on 09/17/2023 with hypoxia secondary to congestive heart failure exacerbation and started on IV diuresis. On 09/17 at approximately 09:30 patient with rapid onset of bradycardia deteriorating to PEA cardiac arrest. CPR started immediately. Returned spontaneous circulation achieved after total of 3 rounds of CPR with cardiac read thereafter deteriorating to V-tach and patient loaded with amiodarone drip. He was intubated during the CPR. Patient was evaluated by Cardiology service and transfer to [facility] for evaluation of underlying severe aortic stenosis was requested and granted. Discharge medications: Propofol drip, amiodarone drip, Levophed drip Time Attestation Total time managing care of this patient today: 60 mintues. Discharge Coordination Time (in mins): 60 Quality: Safe Use of Opioids Does Pt have an Active Cancer Diagnosis on the Problem List?: No Quality: Stroke Does the patient have a stroke diagnosis?: No Physical Exam Vital Signs: Vital Signs: Last Vital Signs Temp 98.9 F 09/18/23 07:47 Pulse 75 09/18/23 11:10 Resp 20 09/18/23 11:00 BP 106/51 L 09/18/23 11:10 Pulse Ox 100 09/18/23 11:00 O2 Del Method Mechanical Ventil ation 09/18/23 11:00 O2 Flow Rate 2 09/18/23 07:47 FiO2 70 09/18/23 11:00 Oxygen Flow Rate 3 09/17/23 06:43 BMI result Body Mass Index 34.2 Const: General: no acute distress and other (Sedated on ventilatory support) Nutritional Appearance: obese Eyes: Sclerae: sclerae normal EOM: EOMs intact bilaterally Neck: Neck: Yes no lymphadenopathy, Yes trachea midline and Yes supple Resp: Auscultation: crackles (Bilateral) Cardio: Rate: regular rate Rhythm: regular rhythm Heart sounds: no gallops, no murmurs and no rubs GI: Palpation (GI): Soft to palpation and Other GI palpation findings present ( Nontender) Auscultation: normal bowel sounds Extrem: General: No clubbing, No cyanosis and Yes edema (1+ bilateral) DS: Data Data Completed and Pending Labs on day of discharge: Laboratory Results - last 24 hr 09/17/23 09/17/23 09/17/23 07:42 14:59 17:42 WBC RBC Hgb Hct MCV MCH MCHC RDW Plt Count MPV Immature Gran % (Auto) Neut % (Auto) Lymph % (Auto) [place]kes % (Auto) Eos % (Auto) Baso % (Auto) Lymph # (Auto) [place] # (Auto) Eos # (Auto) Baso # (Auto) Abs Immat Gran (auto) Absolute Neuts (auto) Absolute Nucleated RBC Nucleated RBC % (auto) Neutrophils % (Manual) Band Neutrophils % Lymphocytes % (Manual) Monocytes % (Manual) Basophils % (Manual) Abs Neuts (Manual) Lymphocytes # (Manual) Monocytes # (Manual) Basophils # (Manual) Platelet Estimate Plt Morphology Comment RBC Morphology Ovalocytes [place] Cells Schistocytes Smear Tech's Comments VBG pH VBG pCO2 VBG pO2 VBG HCO3 VBG O2 Saturation VBG Base Excess Sodium 125 L Potassium 4.3 Chloride 86 L Carbon Dioxide 28 Anion Gap 15 BUN 14 Creatinine 0.75 Estim Creat Clear Calc 95.5 Estimated GFR > 60 POC Glucose 331 H Random Glucose 317 H Lactic Acid Calcium 8.6 Phosphorus Magnesium 1.7 Iron TIBC % Saturation Unsat Iron Binding Ferritin Total Bilirubin AST ALT Alkaline Phosphatase Troponin I High Sens B-Natriuretic Peptide Total Protein Albumin Procalcitonin 0.03 Urine Color Urine Appearance Urine pH Ur Specific [place] Urine Protein Urine Glucose (UA) Urine Ketones Urine Blood Urine Nitrite Ur Leukocyte Esterase Urine RBC Urine WBC Ur Squamous Epith Cells Urine Bacteria Hyaline Casts Nasal Screen MRSA (PCR) Nasal S. aureus Screen Nasal MRSA/S.aureus Interp 09/17/23 09/17/23 09/17/23 18:44 21:29 22:17 WBC RBC Hgb Hct MCV MCH MCHC RDW Plt Count MPV Immature Gran % (Auto) Neut % (Auto) Lymph % (Auto) [place] % (Auto) Eos % (Auto) Baso % (Auto) Lymph # (Auto) [place] # (Auto) Eos # (Auto) Baso # (Auto) Abs Immat Gran (auto) Absolute Neuts (auto) Absolute Nucleated RBC Nucleated RBC % (auto) Neutrophils % (Manual) Band Neutrophils % Lymphocytes % (Manual) Monocytes % (Manual) Basophils % (Manual) Abs Neuts (Manual) Lymphocytes # (Manual) Monocytes # (Manual) Basophils # (Manual) Platelet Estimate Plt Morphology Comment RBC Morphology Ovalocytes [place] Cells Schistocytes Smear Tech's Comments VBG pH VBG pCO2 VBG pO2 VBG HCO3 VBG O2 Saturation VBG Base Excess Sodium Potassium Chloride Carbon Dioxide Anion Gap BUN Creatinine Estim Creat Clear Calc Estimated GFR POC Glucose 313 H 439 H* Random Glucose Lactic Acid Calcium Phosphorus Magnesium Iron TIBC % Saturation Unsat Iron Binding Ferritin Total Bilirubin AST ALT Alkaline Phosphatase Troponin I High Sens B-Natriuretic Peptide Total Protein Albumin Procalcitonin Urine Color Yellow Urine Appearance Clear Urine pH 6.0 Ur Specific [place] 1.015 Urine Protein 100 (2+) H Urine Glucose (UA) 100 H Urine Ketones Negative Urine Blood Small (1+) H Urine Nitrite Negative Ur Leukocyte Esterase Moderate (2+) H Urine RBC 3-5 H Urine WBC >50 H Ur Squamous Epith Cells 3-5 Urine Bacteria None Seen Hyaline Casts 3-5 Nasal Screen MRSA (PCR) Nasal S. aureus Screen Nasal MRSA/S.aureus Interp 09/18/23 09/18/23 09/18/23 06:02 07:09 08:59 WBC 14.1 H RBC 3.23 L Hgb 8.1 L Hct 24.3 L MCV 75.2 L MCH 25.1 L MCHC 33.3 RDW 15.7 Plt Count 283 MPV 9.1 L Immature Gran % (Auto) Neut % (Auto) Lymph % (Auto) Wilkes % (Auto) Eos % (Auto) Baso % (Auto) Lymph # (Auto) [place] # (Auto) Eos # (Auto) Baso # (Auto) Abs Immat Gran (auto) Absolute Neuts (auto) Absolute Nucleated RBC 0.000 Nucleated RBC % (auto) 0.0 Neutrophils % (Manual) Band Neutrophils % Lymphocytes % (Manual) Monocytes % (Manual) Basophils % (Manual) Abs Neuts (Manual) Lymphocytes # (Manual) Monocytes # (Manual) Basophils # (Manual) Platelet Estimate Plt Morphology Comment RBC Morphology Ovalocytes [place] Cells Schistocytes Smear Tech's Comments VBG pH VBG pCO2 VBG pO2 VBG HCO3 VBG O2 Saturation VBG Base Excess Sodium 124 L Potassium 3.8 Chloride 87 L Carbon Dioxide 29 Anion Gap 12 BUN 18 H Creatinine 0.74 Estim Creat Clear Calc 97.0 Estimated GFR > 60 POC Glucose 152 H Random Glucose 157 H Lactic Acid Calcium 8.3 L Phosphorus Magnesium 1.6 Iron 35 L TIBC 256 % Saturation 14 L Unsat Iron Binding 221 Ferritin 46 Total Bilirubin AST ALT Alkaline Phosphatase Troponin I High Sens B-Natriuretic Peptide 1309 H Total Protein Albumin Procalcitonin Urine Color Urine Appearance Urine pH Ur Specific [place] Urine Protein Urine Glucose (UA) Urine Ketones Urine Blood Urine Nitrite Ur Leukocyte Esterase Urine RBC Urine WBC Ur Squamous Epith Cells Urine Bacteria Hyaline Casts Nasal Screen MRSA (PCR) POSITIVE A Nasal S. aureus Screen POSITIVE A Nasal MRSA/S.aureus Interp SEE NOTE 09/18/23 09/18/23 09/18/23 09:59 10:02 11:44 WBC 30.3 H* RBC 3.33 L Hgb 8.4 L Hct 25.6 L MCV 76.9 L MCH 25.2 L MCHC 32.8 RDW 16.0 Plt Count 375 D MPV 9.2 L Immature Gran % (Auto) Cancelled Neut % (Auto) Cancelled Lymph % (Auto) Cancelled Wilkes % (Auto) Cancelled Eos % (Auto) Cancelled Baso % (Auto) Cancelled Lymph # (Auto) Cancelled [place] # (Auto) Cancelled Eos # (Auto) Cancelled Baso # (Auto) Cancelled Abs Immat Gran (auto) Cancelled Absolute Neuts (auto) Cancelled Absolute Nucleated RBC 0.000 Nucleated RBC % (auto) 0.0 Neutrophils % (Manual) 67 Band Neutrophils % 14 H Lymphocytes % (Manual) 14 L Monocytes % (Manual) 3 Basophils % (Manual) 2 Abs Neuts (Manual) 24.5 H Lymphocytes # (Manual) 4.2 Monocytes # (Manual) 0.9 Basophils # (Manual) 0.6 H Platelet Estimate NORMAL Plt Morphology Comment NORMAL RBC Morphology NOTED Ovalocytes 1+ (5-14) [place] Cells 3+ (>5) Schistocytes 1+ (0-2) Smear Tech's Comments MANUAL DIFF VBG pH 7.37 VBG pCO2 43 VBG pO2 43 VBG HCO3 25 VBG O2 Saturation 66.0 VBG Base Excess 0.5 Sodium 125 L Potassium 3.9 Chloride 88 L Carbon Dioxide 21 L Anion Gap 20 BUN 20 H Creatinine 0.83 Estim Creat Clear Calc 84.5 Estimated GFR > 60 POC Glucose 282 H Random Glucose 278 H Lactic Acid 5.7 H* Calcium 7.7 L D Phosphorus 4.9 H Magnesium 1.7 Iron TIBC % Saturation Unsat Iron Binding Ferritin Total Bilirubin 0.5 AST 120 H ALT 88 H Alkaline Phosphatase 60 Troponin I High Sens 4767.1 H* B-Natriuretic Peptide 858 H Total Protein 5.5 L Albumin 3.0 L Procalcitonin Urine Color Urine Appearance Urine pH Ur Specific [place] Urine Protein Urine Glucose (UA) Urine Ketones Urine Blood Urine Nitrite Ur Leukocyte Esterase Urine RBC Urine WBC Ur Squamous Epith Cells Urine Bacteria Hyaline Casts Nasal Screen MRSA (PCR) Nasal S. aureus Screen Nasal MRSA/S.aureus Interp Preliminary micro results at discharge 09/17/23 07:42 Blood Culture - Preliminary Blood - Venous No growth after 24 hours. 09/17/23 07:42 Blood Culture - Preliminary Blood - Venous No growth after 24 hours. Discharge Plan Discharge Anticipated Discharge Date/Time: 09/18/23 11:59 Patient Disposition: Xfer [facility] Hospital Discharge Diagnosis: Cardiac arrest, aortic stenosis, congestive heart failure, coronary artery disease Referrals: Alaina Fontenot MD [Primary Care Provider] - 1 Week Discharge Medications: Continued furosemide 40 mg tablet 40 mg PO DAILY acetaminophen 325 mg Tablet 650 mg PO Q6H PRN (Reason: Pain) metoprolol succinate 100 mg tablet extended release 24 hr 100 mg PO QAM aspirin 81 mg Tablet,Delayed Release (Dr/Ec) 81 mg PO QAM triamcinolone acetonide 0.1 % cream 1 appl topical BID Rx Instructions: apply to generalized areas of rash simvastatin 40 mg tablet 40 mg PO BEDTIME magnesium hydroxide [Milk of Magnesia] 400 mg/5 mL Suspension 30 ml PO DAILY PRN (Reason: Constipation) Rx Instructions: if no bowel movement for 3 days tamsulosin 0.4 mg capsule 0.4 mg PO BEDTIME bisacodyl 10 mg Suppository 10 mg NE DAILY PRN (Reason: Constipation) Rx Instructions: if no bowel movement for 8 hours after milk of magnesia Fleet Enema 19-7 gram/118 mL Enema 118 ml NE DAILY PRN (Reason: Constipation) Rx Instructions: if no bowel movement 8 hours after bisacodyl suppository sertraline 25 mg Tablet 25 mg PO DAILY omeprazole 20 mg capsule,delayed release(DR/EC) 20 mg PO DAILY insulin lispro [Humalog U-100 Insulin] 100 unit/mL Solution 26 unit SUBCUT TIDAC finasteride 5 mg tablet 5 mg PO DAILY clotrimazole 1 % Lotion 1 appl TOPICAL BID Rx Instructions: apply to generalized rash cholecalciferol (vitamin D3) [Vitamin D3] 25 mcg (1,000 unit) Capsule 25 mcg PO QAM insulin glargine [Basaglar KwikPen U-100 Insulin] 100 unit/mL (3 mL) Insulin Pen 26 unit SUBCUT BEDTIME Trulicity 0.75 mg/0.5 mL Pen Injector 1.5 mg SUBCUT TU Rx Instructions: 2 injections of the 0.75mg pen every Monday confirmed with facility psyllium husk [Metamucil] 0.4 gram Capsule 0.8 g PO DAILY PRN (Reason: Constipation) Discharge Orders: Discharge Order (Routine); Ordered 09/18/23 Ordered By: Donnie Wagoner Activity on Discharge: Bed-bound Stand Alone Forms: Patient Portal Discharge page Print Language: Congolese Care Plan Goals: Evaluate severe aortic stenosis Health Concerns: New onset of congestive heart failure Plan of Treatment: Evaluated severe aortic stenosis Assessment: Remains critically ill
[2023-09-18] MEDS: vancomycin/NS 2,000 MG/500 ML PLAST..BAG 250 MG IV (12:09)
[2023-09-18 12:11] LABS: Reflex Lactate? Lactic Acid Added
[2023-09-18 12:44] LABS: Adenovirus PCR Not Detected (Not Detect.); Bordetella parapertussis PCR Not Detected (Not Detect.); Bordetella pertussis PCR Not Detected (Not Detect.); Chlamydia pneumoniae PCR Not Detected (Not Detect.); Coronavirus 229E PCR Not Detected (Not Detect.); Coronavirus HKU1 PCR Not Detected (Not Detect.); Coronavirus NL63 PCR Not Detected (Not Detect.); Coronavirus OC43 PCR Not Detected (Not Detect.); Human metapneumovirus PCR Not Detected (Not Detect.); Influenza A PCR Not Detected (Not Detect.); Influenza B PCR Not Detected (Not Detect.); Mycoplasma pneumoniae PCR Not Detected (Not Detect.); Parainfluenza 1 PCR Not Detected (Not Detect.); Parainfluenza 2 PCR Not Detected (Not Detect.); Parainfluenza 3 PCR Not Detected (Not Detect.); Parainfluenza 4 PCR Not Detected (Not Detect.); RSV PCR Not Detected (Not Detect.); Rhino/Enterovirus PCR Not Detected (Not Detect.)
--- NOTE | 2023-09-18 12:50 | W.PM.CCHP ---
Procedures Date of Service Date of Service: 09/18/23 Central Line Placement Right IJ: Central Line Comments: After obtaining informed consent right internal jugular triple-lumen central venous catheter placed for pressor support under ultrasound guidance and usual sterile conditions with no immediate complications. X-ray for line position is pending.
[2023-09-18] MEDS: propofoL 1,000 MG/100 ML VIAL 25.97 MG IVCONT (13:00)
[2023-09-18 13:11] LABS: SARS-CoV-2 PCR Not Detected (Not Detect.)
[2023-09-18 13:12] LABS: ~Lactic Acid-LAB USE ONLY 2.9 mmol/L (0.5-2.0)
[2023-09-18] MEDS: Enoxaparin Sodium 40 MG/0.4 ML SYRINGE SUBCUT (13:17)
[2023-09-18] MEDS: Norepinephrine Bitartrate/D5W 8 MG/250 ML PLAST..BAG 81.15 MG IV (13:35)
[2023-09-18 14:28] LABS: Reflex Lactate? 2 Y
[2023-09-18 14:55] LABS: ~Lactic Acid-LAB USE ONLY 1.3 mmol/L (0.5-2.0)
[2023-09-18] MEDS: Chlorhexidine Gluc Oral Rinse 15 ML MOUTHWASH BUCCAL (16:03)
[2023-09-18] MEDS: Norepinephrine Bitartrate/D5W 8 MG/250 ML PLAST..BAG 73.04 MG IV (16:20)
[2023-09-18] MEDS: fentaNYL citrate/NS 1,000 MCG/100 ML PLAST..BAG 2.5 MCG IVCONT (16:32)
[2023-09-20 13:47] LABS: Strep Pneumo Ag urine Not Detected (Not Detected)
[2023-09-21 03:44] LABS: Legionella Ag Urine Not Detected (Not Detected)
== END 2023-09-18 17:03 | disposition short-term general hospital (02) | DRG 306 ==
LOC: HO.ED 09:07 → HO.EDOVER 12:59 → HO.IMC 23:27 → HO.ICU 09-18 09:40
PROVIDERS: Family Medicine; Physician Assistant Medical; Admitting Provider Student in an Organized Health Care Education/Training Program; Emergency Provider Student in an Organized Health Care Education/Training Program; PCP Internal Medicine; Visit Provider Internal Medicine Pulmonary Disease
DX: I35.0 Nonrheumatic aortic (valve) stenosis (principal); I46.9 Cardiac arrest, cause unspecified; J96.01 Acute respiratory failure with hypoxia; J98.11 Atelectasis; E87.1 Hypo-osmolality and hyponatremia; I47.20 Ventricular tachycardia, unspecified; I25.10 Atherosclerotic heart disease of native coronary artery without angina pectoris; I50.9 Heart failure, unspecified; E11.9 Type 2 diabetes mellitus without complications; E78.5 Hyperlipidemia, unspecified; N40.0 Benign prostatic hyperplasia without lower urinary tract symptoms; E83.42 Hypomagnesemia; K21.9 Gastro-esophageal reflux disease without esophagitis; Z20.822 Contact with and (suspected) exposure to COVID-19; Z87.891 Personal history of nicotine dependence; Z79.4 Long term (current) use of insulin; Z79.82 Long term (current) use of aspirin; Z79.85 Long-term (current) use of injectable non-insulin antidiabetic drugs; Z79.899 Other long term (current) drug therapy
CPT/HCPCS: 0241U; 36415; 71045; 71250; 80048; 80053; 81001; 82728; 82803; 82947; 83540; 83605; 83735; 83880; 84100; 84145; 84484; 85007; 85025; 85027; 87040; 87086; 87088; 87186; 87449; 87633; 87640; 87641; 87899; 92950; 93005; 93306; 94002; 99285; J0171; J0282; J0456; J0696; J1650; J1940; J2704; J3010; J3370; J3475

== ENCOUNTER → 2023-09-17 06:54 | Outpatient (BNV) | payer MEDICARE, OTHER, SELFPAY | PROVIDERS: Admitting Provider Student in an Organized Health Care Education/Training Program; Emergency Provider Student in an Organized Health Care Education/Training Program; PCP Internal Medicine; Visit Provider Internal Medicine Cardiovascular Disease | DX: R94.31 Abnormal electrocardiogram [ECG] [EKG] (principal) | CPT/HCPCS: 93010 ==

== ENCOUNTER 2023-09-17 12:58 | Outpatient (BNV) | payer MEDICARE, OTHER, SELFPAY | END 2023-09-18 07:00 | PROVIDERS: Admitting Provider Student in an Organized Health Care Education/Training Program; Emergency Provider Student in an Organized Health Care Education/Training Program; PCP Internal Medicine; Visit Provider Internal Medicine Cardiovascular Disease | DX: I35.0 Nonrheumatic aortic (valve) stenosis (principal); I46.9 Cardiac arrest, cause unspecified | CPT/HCPCS: 93010; 93306 ==

== ENCOUNTER → 2023-09-17 12:58 | Outpatient (BNV) | payer MEDICARE, OTHER, SELFPAY | PROVIDERS: Admitting Provider Student in an Organized Health Care Education/Training Program; Emergency Provider Student in an Organized Health Care Education/Training Program; PCP Internal Medicine; Visit Provider Internal Medicine Cardiovascular Disease | DX: I50.9 Heart failure, unspecified (principal); I46.9 Cardiac arrest, cause unspecified | CPT/HCPCS: 99223 ==

== ENCOUNTER → 2023-09-17 12:58 | Outpatient (BNV) | payer MEDICARE, OTHER, SELFPAY | PROVIDERS: Admitting Provider Student in an Organized Health Care Education/Training Program; Emergency Provider Student in an Organized Health Care Education/Training Program; PCP Internal Medicine; Visit Provider Internal Medicine Pulmonary Disease | DX: I50.9 Heart failure, unspecified (principal); I46.9 Cardiac arrest, cause unspecified; I35.0 Nonrheumatic aortic (valve) stenosis; J96.01 Acute respiratory failure with hypoxia; I25.10 Atherosclerotic heart disease of native coronary artery without angina pectoris; E11.9 Type 2 diabetes mellitus without complications; Z79.4 Long term (current) use of insulin | CPT/HCPCS: 36556; 99239 ==

== ENCOUNTER → 2023-09-17 12:58 | Outpatient (BNV) | payer MEDICARE, OTHER, SELFPAY | PROVIDERS: Admitting Provider Student in an Organized Health Care Education/Training Program; Emergency Provider Student in an Organized Health Care Education/Training Program; PCP Internal Medicine; Visit Provider Internal Medicine | DX: I50.9 Heart failure, unspecified (principal) | CPT/HCPCS: 99223; 99499 ==

== ENCOUNTER 2023-11-01 03:05 | Inpatient (IN) | payer MEDICARE, OTHER, MEDICAID, SELFPAY ==
[2023-11-01] VITALS (10 sets, daily range): BP systolic 94–136; BP diastolic 35–85; PULSE 82–112; RESP 16–27; TEMP 36.6–37; O2SAT 77–99; BMI 35.8
--- NOTE | 2023-11-01 | ECG_ITS ---
Test Reason : SOB Blood Pressure : / mmHG Vent. Rate : 101 BPM Atrial Rate : 101 BPM P-R Int : 180 ms QRS Dur : 110 ms QT Int : 376 ms P-R-T Axes : 053 -30 094 degrees QTc Int : 487 ms Sinus tachycardia Left axis deviation Moderate voltage criteria for LVH, may be normal variant ( R in aVL , Nelson product ) Septal infarct (cited on or before 17-SEP-2023) Abnormal ECG When compared with ECG of 18-SEP-2023 10:05, No significant change was found Referred By: Generic ED Physician Electronically Signed By:Leon Marquez
--- NOTE | ~2023-11-01 | XR_ITS ---
EXAMINATION: XR CHEST CLINICAL INFORMATION: Tube/line placement. COMPARISON: Chest radiograph dated 11/04/2023 4:05 AM. TECHNIQUE: Frontal view of the chest was obtained. FINDINGS: The tip of the endotracheal tube terminates 5 cm above the radha. There is a right internal jugular vein catheter which appears to terminate over the superior vena cava. There is an enteric tube crossing the diaphragm. The tip is collimated from the [id number]. The cardiac silhouette remains mildly enlarged. There is calcific atherosclerotic disease of the aorta. Multifocal airspace disease is redemonstrated, right greater than left. There is a right pleural effusion. There is no pneumothorax. No acute osseous abnormality. XR/XR chest 1V IMPRESSION: The tip of the endotracheal tube terminates 5 cm above the radha. There is a right internal jugular vein catheter which appears to terminate over the superior vena cava. There is an enteric tube crossing the diaphragm. The tip is collimated from the [id number]. Multifocal airspace disease is redemonstrated, right greater than left. There is a right pleural effusion.
--- NOTE | ~2023-11-01 | XR_ITS ---
EXAMINATION: XR CHEST CLINICAL INFORMATION: Low oxygen saturation. COMPARISON: 10/27/2023. TECHNIQUE: Frontal view of the chest was obtained. FINDINGS: The lung volumes are low and the patient is mildly rotated. The cardiomediastinal silhouette is stable. There are faint bilateral lung opacities. The bony structures and soft tissues are unremarkable. XR/XR chest 1V IMPRESSION: Low lung volumes with faint bilateral lung opacities which could represent atelectasis and/or infiltrate/pleural fluid. Similar findings were present previously.
--- NOTE | ~2023-11-01 | XR_ITS ---
EXAMINATION: XR CHEST CLINICAL INFORMATION: Shortness of breath COMPARISON: Chest x-rays of 09/18/2023, 09/17/2023, chest CT of 09/17/2023 TECHNIQUE: Frontal view of the chest was obtained. FINDINGS: Cardiac leads and wires overlie the chest. The lungs are hypoexpanded. Assessment of the cardiomediastinal silhouette is somewhat limited due to hyperexpansion of the chest however appears to be unchanged compared to previous studies. Diffuse interstitial prominence is noted. Question small left pleural effusion. No dense focal consolidation is seen. No pneumothorax. Aortic arch calcifications. XR/XR chest 1V IMPRESSION: Interstitial edema without overt pulmonary edema. Likely small left pleural effusion.
--- NOTE | ~2023-11-01 | CT_ITS ---
EXAMINATION: CT CHEST WITHOUT CONTRAST CLINICAL INFORMATION: Hypoxia, dyspnea. COMPARISON: CXR from 09/18/2023 and 11/01/2023. TECHNIQUE: Multidetector volumetric CT imaging of the chest was done. Axial MIP volume rendering provided. Sagittal and coronal reformatted images were obtained. This CT examination was performed using dose optimization techniques as appropriate, variously including the following: *Automated exposure control *Adjustment of mA and/or kV according to patient size (this includes techniques or standardized protocols for targeted exams where dose is matched to indication/reason for exam; i.e. extremities or head) *Use of iterative reconstruction technique DLP: 617 mGy-cm FINDINGS: LUNGS AND PLEURA: There is respiratory motion on these images the chest. Inward bowing of the membranous wall of the trachea suggests that images were acquired either during expiration or coughing. There is smooth thickening of interlobular septa in both lungs. Small bilateral pleural effusions and passive atelectasis in dependent aspect of each lower lobe. No pneumothorax. CARDIOVASCULAR: The left atrium is borderline enlarged. No pericardial effusion. Severe multivessel coronary artery atherosclerotic calcification is present. Calcification seen at the level of the aortic valve and there is atherosclerosis of the aorta without aortic aneurysm. Pulmonary artery trunk is in the normal size range at 3 cm transverse diameter. MEDIASTINUM AND LOWER NECK: No mediastinal mass. The esophagus and thyroid gland are unremarkable. LYMPHATICS: No pathologic sized lymph nodes. UPPER ABDOMEN: Spleen is mildly enlarged, 14.5 cm AP dimension. SKELETAL AND CHEST WALL: Subacute fracture of the proximal sternum just inferior to the sternomanubrial junction where there is mild cortical bone offset. Multiple subacute healing bilateral anterior rib fractures are present. Query if the patient required CPR after the chest CT from 09/16/2025 since there were no rib or sternal fractures on the prior CT exam. Old compression fracture of the T12 vertebral body resulting in approximately 40% anterior height loss, unchanged compared to 09/17/2023. No acute fractures within the degenerated thoracic spine. CT/CT chest wo IV con IMPRESSION: * Interstitial pulmonary edema, small bilateral pleural effusions and lower lobe atelectasis. * Atherosclerotic disease of coronary arteries and thoracic aorta without aortic aneurysm. * Subacute healing fractures of multiple bilateral anterior ribs. Also, there is a subacute, mildly displaced fracture of the proximal sternum (new since 09/17/2023).
--- NOTE | 2023-11-01 03:41 | ED_ITS ---
HPI - SOB/Dyspnea General Chief Complaint: Dyspnea Stated Complaint: SOB Time Seen by Provider: 11/01/23 03:41 Source: patient Mode of arrival: EMS Limitations: no limitations History of Present Illness ED Provider: Dr. Nahid Collins HPI Narrative: 82yo M with CAD s/p RCA PCI 2002, severe aortic stenosis, diabetes mellitus, hyperlipidemia, GERD, suprapubic catheter, coronary disease, recent PEA cardiac arrest secondary to myocardial infarction who was transferred from his intermediate facility this evening for evaluation of difficulty breathing. Paramedics state that the patient's O2 saturation was 77% on room air, they placed him on CPAP with PEEP of 5 in his O2 saturation came up to 99%. The patient states that he has not been feeling well for 2 days. He states he has been feeling short of breath and had a nonproductive cough. At the time my evaluation the patient is on 4 L of oxygen via nasal cannula with an O2 saturation of 92%. I did review the patient's notes from his previous visit on 09/17/2023 until 09/18/2023. Patient was initially admitted with congestive heart failure and fluid overload. While he was being cleaned up by the nurse on the medical floor, he felt dizzy, he then had a PEA cardiac arrest had CPR with resuscitation, achieve ROSC and was then transferred to [facility]. Patient reports that he was told that he had a heart attack that caused his cardiac arrest. Related Data Home Medications ?Medication ?Instructions ?Recorded ?Confirmed acetaminophen 325 mg tablet 650 mg PO Q6H PRN Pain 09/17/23 09/17/23 aspirin 81 mg tablet,delayed 81 mg PO QAM 09/17/23 09/17/23 release bisacodyl 10 mg rectal suppository [address] DAILY PRN Constipation 09/17/23 09/17/23 cholecalciferol (vitamin D3) 25 25 mcg PO QAM 09/17/23 09/17/23 mcg (1,000 unit) capsule (Vitamin D3) clotrimazole 1 % lotion 1 appl topical BID 09/17/23 09/17/23 dulaglutide 0.75 mg/0.5 mL 1.5 mg subcut TU 09/17/23 09/17/23 subcutaneous [facility] finasteride 5 mg tablet 5 mg PO DAILY 09/17/23 09/17/23 furosemide 40 mg tablet 40 mg PO DAILY 09/17/23 09/17/23 insulin glargine 100 unit/mL (3 26 unit subcut BEDTIME 09/17/23 09/17/23 mL) subcutaneous pen (Basaglar KwikPen U-100 Insulin) insulin lispro 100 unit/mL 26 unit subcut TIDAC 09/17/23 09/17/23 subcutaneous solution (Humalog U-100 Insulin) magnesium hydroxide 400 mg/5 mL 30 ml PO DAILY PRN Constipation 09/17/23 09/17/23 oral suspension (Milk of Magnesia) metoprolol succinate 100 mg 100 mg PO QAM 09/17/23 09/17/23 tablet,extended release 24 hr omeprazole 20 mg capsule,delayed 20 mg PO DAILY 09/17/23 09/17/23 release psyllium husk 0.4 gram capsule 0.8 g PO DAILY PRN Constipation 09/17/23 09/17/23 (Metamucil) sertraline 25 mg tablet 25 mg PO DAILY 09/17/23 09/17/23 simvastatin 40 mg tablet 40 mg PO BEDTIME 09/17/23 09/17/23 sodium phosphates 19 gram-[address] DAILY PRN Constipation 09/17/23 09/17/23 gram/118 mL enema (Fleet Enema) tamsulosin 0.4 mg capsule 0.4 mg PO BEDTIME 09/17/23 09/17/23 triamcinolone acetonide 0.1 % 1 appl topical BID 09/17/23 09/17/23 topical cream Allergies Allergy/AdvReac Type Severity Reaction Status Date / Time No Known Allergies Allergy Verified 11/01/23 03:21 Review of Systems 2 Review of Systems: Yes all other systems are reviewed and are negative [facility] Past Medical History [facility] Narrative: Social history: Patient is currently residing at [facility] in [place]. He denies tobacco, alcohol and drug use. Medical History (Updated 11/01/23 @ 06:42 by Nahid Collins MD) Umbilical hernia HLD (hyperlipidemia) GERD (gastroesophageal reflux disease) Suprapubic catheter Insulin dependent type 2 diabetes mellitus CAD (coronary artery disease) Aortic stenosis Social History Social History Household Members: Spouse Housing: Other Housing Other:: Mobile Home Do you presently have visiting nurse or other home services: Yes ( couple times a week ) Unable to assess alcohol history related to: Unable to respond Alcohol intake: never Patient Tobacco Use Status: Former Tobacco user Tobacco use type: Cigarette Smoked in Last 30 Days: No Use of substances other than those prescribed or required for medical reasons: No Advance Directives: Yes Advance Directives on File: Yes Advance Directives Date on File: 09/17/23 Physical Exam 2 Vital Signs: Vital Signs: Last Vital Signs Temp 98 F 11/01/23 06:00 Pulse 99 11/01/23 06:00 Resp 19 11/01/23 06:00 BP 112/54 L 11/01/23 06:00 Pulse Ox 98 11/01/23 06:00 O2 Del Method Nasal Cannula 11/01/23 06:00 O2 Flow Rate 4 11/01/23 06:00 Oxygen Flow Rate 4 11/01/23 03:18 BMI result Body Mass Index 35.8 Vital signs revealed an elevated heart rate of 105 and an elevated respiratory rate of 27, O2 saturation was 95% on 4 L via nasal cannula Exam: General: Awake, alert in no distress, answers questions appropriately. Weight 113.2 kg, elevated BMI 35.8 kg per m2 Head: Normocephalic, atraumatic EENT: PERRL, Lids normal, sclera normal, conjunctiva normal, nose normal , ears normal, throat without erythema or exudates Neck: Supple, no adenopathy Lung: Breath sounds symmetric bilaterally, patient has diffuse rales and rhonchi Chest: symmetric movement, nontender Heart: regular rate and rhythm, normal S1, S2 , 3/6 systolic murmur best heard at the right upper sternal border but heard diffusely throughout the precordium Abdomen: soft, non-tender, nondistended, normal bowel sounds Back: no vertebral tenderness, no CVAT Extremities: Left [id number] amputation, trace to 1+ pitting edema to the right lower extremity Neuro: Awake, alert, oriented, normal speech, cranial nerves intact, moves all extremities symmetrically Psych: Pleasant, cooperative Medications Administered Discontinued Medications Generic Name Dose Route Start Last Admin Trade Name Freq PRN Reason Stop Dose Admin Furosemide 40 mg 11/01/23 04:11 11/01/23 04:28 Furosemide 40 Mg/4 Ml Vial IVPUSH 11/01/23 04:12 40 mg STAT STA Administration Protocol Medical Decision Making Medical Decision Making [facility] Narrative: 82yo male with CAD s/p RCA PCI 2002, severe aortic stenosis, diabetes mellitus, hyperlipidemia, GERD, suprapubic catheter, coronary disease, recent PEA cardiac arrest secondary to myocardial infarction (09/18/2023) who was transferred from his intermediate facility this evening for evaluation of difficulty breathing. Paramedics state that the patient's O2 saturation was 77% on room air, they placed him on CPAP with PEEP of 5 in his O2 saturation came up to 99%. The patient states that he has not been feeling well for 2 days. He states he has been feeling short of breath and had a nonproductive cough. At the time my evaluation the patient is on 4 L of oxygen via nasal cannula with an O2 saturation of 92%. Vital signs revealed elevated pulse of 105 and elevated respiratory rate of 27. Lung exam revealed diffuse rales and rhonchi with no wheezing. Patient's heart exam is consistent with atrial stenosis, he also has trace 1+ pitting edema to his right lower extremity. Differential diagnosis: ?Includes but is not limited to myocardial infarction, myocardial ischemia, congestive heart failure, pneumonia, anemia, electrolyte abnormalities Following evaluation was ordered: CBC, CMP, VBG, troponin, COVID-19, RSV, influenza, chest x-ray one view, EKG Patient was initially treated with the following: Oxygen 2 L via nasal cannula, Lasix 40 mg IV Course: 04:16 My interpretation patient's laboratory evaluation as follows: WBC elevated 14,600 with 79 neutrophils 14 lymphocytes, microcytic anemia with an H&H of 8.7 and 26.2-similar to values from 09/17/2023. VBG revealed a normal pH of 7.42 and a normal pCO2 of 42 and normal bicarb of 26. Sodium was low 127, chloride was low 93, BUN was elevated at 24 with a normal creatinine of 1.13. Glucose elevated 211. Troponin elevated at 62.5-this improved compared to troponin of 4767 on 09/17/2023 when the patient had his cardiac arrest. 05:33 The patient put out approximately 400 cc of urine into his Robles bag. Patient states he does feel better. I did discuss admission over tiger text with the covering hospitalist, Dr. Josh Velazquez. 06:40 Patient's primary nurse noted skin breakdown to the patient's buttocks area and apply barrier cream. Please see photo below Admission/Observation Consideration of admission/observation: Escalation of care including admission/observation considered Consult Healthcare Provider Management of the patient was discussed with: Hospitalist Lab Data MDM Lab Attestation statement: I reviewed the patient's lab results. 11/01/23 03:46 11/01/23 03:46 Labs: Lab Results 11/01/23 11/01/23 Range/Units 03:46 03:49 WBC 14.6 H (4.8-10.8) X10*3/uL RBC 3.56 L (4.60-5.80) X10*6/uL Hgb 8.7 L (14.0-18.0) g/dl Hct 26.2 L (42.0-52.0) % MCV 73.6 L (80.0-98.0) fL MCH 24.4 L (27.0-33.0) pg MCHC 33.2 (31.0-36.0) g/dl RDW 15.3 (11.0-16.0) % Plt Count 195 D (160-400) X10*3/uL MPV 9.5 (9.4-12.4) fL Immature Gran % (Auto) 0.7 H (0.0-0.4) % Neut % (Auto) 79.7 H (45-73) % Lymph % (Auto) 14.0 L (20-40) % [place] % (Auto) 3.2 (2-11) % Eos % (Auto) 2.1 (0-4) % Baso % (Auto) 0.3 (0-2) % Lymph # (Auto) 2.0 (1.2-4.9) X10*3/uL [place] # (Auto) 0.5 (0.1-1.2) X10*3/uL Eos # (Auto) 0.3 (0.0-0.4) X10*3/uL Baso # (Auto) 0.1 (0.0-0.2) X10*3/uL Abs Immat Gran (auto) 0.10 H (0.00-0.03) X10*3/uL Absolute Neuts (auto) 11.6 H (2.0-8.3) x10*3/uL Absolute Nucleated RBC 0.000 (0.0-0.012) X10*3/uL Nucleated RBC % (auto) 0.0 (0.0-0.2) /100WBC VBG pH 7.39 (7.32-7.43) VBG pCO2 42 mmHg VBG pO2 77 mmHg VBG HCO3 26 (22-26) mmol/L VBG O2 Saturation Not Reportable VBG Base Excess 1.2 mmol/L Sodium 127 L (135-145) mmol/L Potassium 4.6 (3.3-5.1) mmol/L Chloride 93 L (96-108) mmol/L Carbon Dioxide 25 (22-29) mmol/L Anion Gap 14 (12-20) BUN 24 H (9-16) mg/dL Creatinine 1.13 (0.5-1.4) mg/dL Estim Creat Clear Calc 63.5 Estimated GFR > 60 Random Glucose 211 H (60-115) mg/dL Calcium 8.4 D (8.4-10.2) mg/dL Total Bilirubin 0.3 (0.0-1.0) mg/dL AST 7 (5-37) U/L ALT 5 (0-40) U/L Alkaline Phosphatase 86 (39-117) U/L Troponin I High Sens 62.5 H D (<3.5-35.0) ng/L B-Natriuretic Peptide 454 H (<100) pg/mL Total Protein 6.1 L (6.5-8.0) g/dL Albumin 3.6 (3.5-5.0) g/dL Influenza Type A (PCR) NEGATIVE (Negative) Influenza Type B (PCR) NEGATIVE (Negative) RSV RNA Qual (PCR) NEGATIVE (Negative) SARS-CoV-2 RNA (RT-PCR) NEGATIVE (Negative) Independent Interpretation I performed an independent interpretation of an: EKG and Plain X-Ray Interpretation: My interpretation patient's 12 EKG done at 03:30 hours is as follows: Sinus tachycardia with a rate of 101, prolonged QRS of 110 milliseconds, prolonged QTC of 487 milliseconds, no ST segment elevation, less than [address] segment depression leads 2, 3 and AVF and leads V4 through V6, no significant T-wave abnormalities, poor R-wave progression V1 through V3 consistent with septal infarct. Compared to EKG dated 09/18/2023 ST segment depressions are old, poor R-wave progression is old as well My interpretation patient's one-view chest x-ray is as follows: Increased interstitial infiltrates consistent with congestive heart failure Critical Care Time Critical Care Time Critical Care Time: Yes Total Critical Care Time: 35 Attestation: Critical Care: The patient was critically ill with a high probability of imminent or life threatening deterioration. I spent greater than 30 minutes of discontinuous time evaluating the patient,delivering critical care at the bedside, discussing and evaluating pertinent data with consultants. Critical care time does not include time spent performing separately billable procedures or teaching. Total time spent performing critical care was 35 minutes. Discharge Plan Discharge Clinical Impression: Congestive heart failure, Decubitus ulcer of right buttock, Decubitus ulcer of left buttock Patient Disposition: Admitted As Inpatient Print Language: Sri [place]ankan
[2023-11-01 03:52] LABS: Venous Blood Gas Refer to POC result
[2023-11-01 03:53] LABS: MANUAL DIFF FLAG NO
[2023-11-01 03:54] LABS: Basophils Absolute Auto 0.1 X10*3/uL (0.0-0.2); Basophils Percent Auto 0.3 % (0-2); Eosinophils Absolute Auto 0.3 X10*3/uL (0.0-0.4); Eosinophils Percent Auto 2.1 % (0-4); Hematocrit 26.2 % (42.0-52.0); Hemoglobin 8.7 g/dl (14.0-18.0); Imm Gran Pct Auto 0.7 % (0.0-0.4); Mean Corpuscular HGB Conc 33.2 g/dl (31.0-36.0); Mean Corpuscular Hemoglobin 24.4 pg (27.0-33.0); Mean Corpuscular Volume 73.6 fL (80.0-98.0); Mean Platelet Volume 9.5 fL (9.4-12.4); Monocytes Absolute Auto 0.5 X10*3/uL (0.1-1.2); Monocytes Percent Auto 3.2 % (2-11); Neutrophils Absolute Auto 11.6 x10*3/uL (2.0-8.3); Neutrophils Percent Auto 79.7 % (45-73); Platelet Count 195 X10*3/uL (160-400); Red Blood Count 3.56 X10*6/uL (4.60-5.80); Red Cell Distribution Width 15.3 % (11.0-16.0); White Blood Count 14.6 X10*3/uL (4.8-10.8)
[2023-11-01 03:57] LABS: VBG Base Excess 1.2 mmol/L; VBG HCO3 26 mmol/L (22-26); VBG pCO2 42 mmHg; VBG pH 7.39 (7.32-7.43); VBG pO2 77 mmHg
[2023-11-01 04:07] LABS: Alanine Aminotransferase 5 U/L (0-40); Albumin Level 3.6 g/dL (3.5-5.0); Alkaline Phosphatase 86 U/L (39-117); Anion Gap 14 (12-20); Aspartate Amino Transferase 7 U/L (5-37); Bilirubin Total 0.3 mg/dL (0.0-1.0); Blood Urea Nitrogen 24 mg/dL (9-16); Calcium 8.4 mg/dL (8.4-10.2); Carbon Dioxide 25 mmol/L (22-29); Chloride 93 mmol/L (96-108); Creatinine Clr Calc Pharmacy 63.5; Estimated Glomerular Filt Rate > 60; Glucose Random 211 mg/dL (60-115); Potassium 4.6 mmol/L (3.3-5.1); Sodium 127 mmol/L (135-145); Total Protein 6.1 g/dL (6.5-8.0)
[2023-11-01 04:14] LABS: Troponin-I High Sensitivity 62.5 ng/L (<3.5-35.0)
[2023-11-01] MEDS: Furosemide 40 MG/4 ML VIAL IVPUSH (04:28)
[2023-11-01 04:32] LABS: Influenza A PCR NEGATIVE (Negative); Influenza B PCR NEGATIVE (Negative); Resp Syncy Virus RNA Qual PCR NEGATIVE (Negative); SARS COV2 PCR INHOUSE NEGATIVE (Negative)
[2023-11-01 06:11] LABS: B Type Natriuretic Peptide 454 pg/mL (<100)
--- NOTE | 2023-11-01 06:26 | PC.NURSE ---
Pt is 82 year old male BIBA from [facility] for shortness of breath coarse crackles, 79% on RA, placed on cpap by EMS, IV line placed and given 4mg Zofran. Pt was admitted approximately 1 month ago when he came in for CHF exacerbation and while being repositined and cleaned went into PEA/code and required intubatation and ICU level of care. HX asthma, CHF/COPD, LBKA, chronic suprapubic catheter. Pt receiv 40mg IV lasix and had 500ml urine output. Alert and oriented X4, course crackles throughout, cough on 4LNC at this time no O2 at baseline, urine foul smelling odor. incontinent BM, Buttocks red and excoriated, pressure ulcer to L-buttocks. #18 intact. patent placed by EMS. Troponin elevated 62.5 repeat at 0645, cxr pending report at this time.
[2023-11-01 07:08] LABS: Troponin-I High Sensitivity 65.9 ng/L (<3.5-35.0)
--- NOTE | 2023-11-01 07:14 | P.HPHOSP_ITS ---
History of Present Illness Date of Service: 11/01/23 Chief Complaint: Dyspnea This is a 82-year-old male with pertinent history of CAD, severe aortic stenosis, insulin-dependent diabetes mellitus, mixed hyperlipidemia, BPH, congestive heart failure with combined systolic and diastolic dysfunction, recent PEA cardiac arrest, suprapubic catheter, PVD status post left BKA who was transferred from [facility] for evaluation of dyspnea. Patient was satting 77% on room air at outside facility and was placed on CPAP via EMS with improved oxygenation. Patient states he has been feeling unwell for the last 2 days. Endorses dyspnea which is worse when laying down. Also has nonproductive cough. No fever, chills, chest discomfort, palpitations, abdominal pain, changes in bowel habits. Patient states his dyspnea feel similar to when he was in the hospital for CHF exacerbation 2 months ago. In the emergency department, imaging concerning for interstitial edema. Patient was initiated on IV diuretics Review of Systems 2 Constitutional: Constitutional: Reports no additional constitutional complaints Cardiovascular: Cardiovascular: Reports dyspnea on exertion and Reports orthopnea Respiratory: Respiratory: Reports dyspnea on exertion Gastrointestinal: Gastrointestinal: Reports no additional gastrointestinal complaints Genitourinary: Genitourinary: Reports no additional male genitourinary complaints [facility] Medical History Umbilical hernia HLD (hyperlipidemia) GERD (gastroesophageal reflux disease) Suprapubic catheter Insulin dependent type 2 diabetes mellitus CAD (coronary artery disease) Aortic stenosis Social History Household Members: Spouse Housing: Other Housing Other:: Mobile Home Do you presently have visiting nurse or other home services: Yes ( couple times a week ) Unable to assess alcohol history related to: Unable to respond Alcohol intake: never Patient Tobacco Use Status: Former Tobacco user Tobacco use type: Cigarette Smoked in Last 30 Days: No Use of substances other than those prescribed or required for medical reasons: No Advance Directives: Yes Advance Directives on File: Yes Advance Directives Date on File: 09/17/23 Meds Allergies Allergy/AdvReac Type Severity Reaction Status Date / Time No Known Allergies Allergy Verified 11/01/23 03:21 Home Medications ?Medication ?Instructions ?Recorded ?Confirmed ?Last Taken ?Type acetaminophen 325 mg tablet 650 mg PO Q6H PRN Pain 09/17/23 11/01/23 Unknown History aspirin 81 mg tablet,delayed 81 mg PO DAILY 09/17/23 11/01/23 Unknown History release bisacodyl 10 mg rectal suppository 10 mg OK DAILY PRN Constipation 09/17/23 11/01/23 Unknown History cholecalciferol (vitamin D3) 25 25 mcg PO DAILY 09/17/23 11/01/23 Unknown History mcg (1,000 unit) capsule (Vitamin D3) clotrimazole 1 % lotion 1 appl topical BID 09/17/23 11/01/23 Unknown History dulaglutide 0.75 mg/0.5 mL 1.5 mg subcut TU 09/17/23 11/01/23 Unknown History subcutaneous pen injector (Trulicity) finasteride 5 mg tablet 5 mg PO DAILY 09/17/23 11/01/23 Unknown History furosemide 40 mg tablet 40 mg PO DAILY 09/17/23 11/01/23 Unknown History insulin glargine 100 unit/mL (3 26 unit subcut BEDTIME 09/17/23 11/01/23 Unknown History mL) subcutaneous pen (Basaglar KwikPen U-100 Insulin) insulin lispro 100 unit/mL 26 unit subcut TIDAC 09/17/23 11/01/23 Unknown History subcutaneous solution (Humalog U-100 Insulin) magnesium hydroxide 400 mg/5 mL 30 ml PO DAILY PRN Constipation 09/17/23 11/01/23 Unknown History oral suspension (Milk of Magnesia) omeprazole 20 mg capsule,delayed 20 mg PO DAILY 09/17/23 11/01/23 Unknown History release psyllium husk 0.4 gram capsule 0.8 g PO DAILY PRN Constipation 09/17/23 11/01/23 Unknown History (Metamucil) sertraline 25 mg tablet 25 mg PO DAILY 09/17/23 11/01/23 Unknown History simvastatin 40 mg tablet 40 mg PO BEDTIME 09/17/23 11/01/23 Unknown History sodium phosphates 19 gram-7 118 ml OK DAILY PRN Constipation 09/17/23 11/01/23 Unknown History gram/118 mL enema (Fleet Enema) tamsulosin 0.4 mg capsule 0.4 mg PO BEDTIME 09/17/23 11/01/23 Unknown History triamcinolone acetonide 0.1 % 1 appl topical BID 09/17/23 11/01/23 Unknown History topical cream ferrous sulfate 325 mg (65 mg 325 mg PO DAILY 11/01/23 11/01/23 Unknown History iron) tablet hydrocortisone 1 % topical cream 1 appl topical TID 11/01/23 11/01/23 Unknown History ipratropium 0.5 mg-albuterol 3 mg 3 ml inhalation Q6H PRN SOB 11/01/23 11/01/23 Unknown History (2.5 mg base)/3 mL nebulization soln lidocaine 5 % topical patch 1 patch topical DAILY 11/01/23 11/01/23 Unknown History metoprolol succinate 50 mg 50 mg PO DAILY 11/01/23 11/01/23 Unknown History tablet,extended release 24 hr sacubitril 24 mg-valsartan 26 mg 1 tab PO BID 11/01/23 11/01/23 Unknown History tablet (Entresto) trazodone 50 mg tablet 50 mg PO BEDTIME 11/01/23 11/01/23 Unknown History Physical Exam 2 Vital Signs and Narrative: Vital Signs: Last Vital Signs Temp 98 F 11/01/23 06:00 Pulse 99 11/01/23 06:00 Resp 19 11/01/23 06:00 BP 112/54 L 11/01/23 06:00 Pulse Ox 98 11/01/23 06:00 O2 Del Method Nasal Cannula 11/01/23 06:00 O2 Flow Rate 4 11/01/23 06:00 Oxygen Flow Rate 4 11/01/23 03:18 BMI result Body Mass Index 35.8 Middle-aged male lying in bed in no distress Neck supple, no JVD Regular rate and rhythm, S1-S2 heard, systolic murmur present Regular breath sounds bilaterally, no wheezing or crackles appreciated Abdomen soft nontender, no guarding, no rigidity Patient is awake, alert and oriented to self, place, time and person ; no focal motor deficit Psych: Normal mood Right pedal edema present, left BKA Results Labs 11/01/23 03:46 11/01/23 03:46 Labs: Laboratory Results - last 24 hr 11/01/23 11/01/23 11/01/23 03:46 03:49 06:44 MCV 73.6 L MCH 24.4 L MCHC 33.2 RDW 15.3 Plt Count 195 D MPV 9.5 Immature Gran % (Auto) 0.7 H Neut % (Auto) 79.7 H Lymph % (Auto) 14.0 L [place] % (Auto) 3.2 Eos % (Auto) 2.1 Baso % (Auto) 0.3 Lymph # (Auto) 2.0 [place] # (Auto) 0.5 Eos # (Auto) 0.3 Baso # (Auto) 0.1 Abs Immat Gran (auto) 0.10 H Absolute Neuts (auto) 11.6 H Absolute Nucleated RBC 0.000 Nucleated RBC % (auto) 0.0 VBG pH 7.39 VBG pCO2 42 VBG pO2 77 VBG HCO3 26 VBG O2 Saturation Not Reportable VBG Base Excess 1.2 Anion Gap 14 Estim Creat Clear Calc 63.5 Estimated GFR > 60 Random Glucose 211 H Calcium 8.4 D Total Bilirubin 0.3 AST 7 ALT 5 Alkaline Phosphatase 86 Troponin I High Sens 62.5 H D 65.9 H B-Natriuretic Peptide 454 H Total Protein 6.1 L Albumin 3.6 Influenza Type A (PCR) NEGATIVE Influenza Type B (PCR) NEGATIVE RSV RNA Qual (PCR) NEGATIVE SARS-CoV-2 RNA (RT-PCR) NEGATIVE Assessment and Plan (1) Acute hypoxic respiratory failure: Status: Acute (2) CHF exacerbation: Status: Acute Plan This is a 82-year-old male with pertinent history of CAD, severe aortic stenosis, insulin-dependent diabetes mellitus, mixed hyperlipidemia, BPH, congestive heart failure with combined systolic and diastolic dysfunction, recent PEA cardiac arrest, suprapubic catheter, PVD status post left BKA who was transferred from [facility] for evaluation of dyspnea. #. Acute hypoxic respiratory failure due to exacerbation of Congestive heart failure with reduced ejection fraction: Initiating IV diuresis. On Entresto, beta-stephon. Strict I's and O's low-salt diet #. Insulin-dependent diabetes mellitus with hyperglycemia: Initiating basal plus insulin regimen #. Hyponatremia: Appears chronic. Serum and urine studies pending #. Reactive leukocytosis #. Sacral decubitus stage I: Consulting Wound Care #. BPH: On Flomax and finasteride #. Mood disorder: On sertraline and trazodone #. Gastroesophageal reflux disease: On PPI #. PAULETTE: CPAP at bedtime #. Coronary artery disease: On aspirin and statin DVT prophylaxis: Lovenox Full code. Discussed with patient at bedside Tried contacting spouse via phone. No answer Admit as inpatient and will require two night minimum hospital stay for (as above), which is not possible in a lesser acute setting. Quality Stroke Does the patient have a stroke diagnosis?: No VTE Prior VTE?: No VTE Risk Level:: Medical - moderate - high VTE Device Contraindication: Treatment Not Indicated VTE Drug Contraindication: N/A - Med Ordered
--- NOTE | 2023-11-01 07:49 | PHA.MEDREC ---
Pharmacy Consult ? Medication Reconciliation Pharmacy has completed the medication reconciliation. Confirmed medications with list provided by [facility]. List confirmed patient is on Basaglar KwikPen 26 units sub at bedtime, Humalog U-100 Insulin 26 units sun three times a day with meals, and Trulicity 0.75mg injecting 2 doses (1.5mg total) every Monday
[2023-11-01 07:51] LABS: Glucose, Whole Blood 228 mg/dL (60-115)
--- NOTE | 2023-11-01 08:03 | PC.NURSE ---
Pt O2 99% on 4L. This RN titrated pt down to 2L via NC
[2023-11-01] MEDS: Insulin Lispro 100 UNIT/ML 3 ML VIAL SUBCUT ×4 (08:32→22:49)
[2023-11-01] MEDS: Enoxaparin Sodium 40 MG/0.4 ML SYRINGE SUBCUT (08:33)
[2023-11-01 09:34] LABS: Osmolality, Serum 279 mosm/kg (281-305)
[2023-11-01] MEDS: Metoprolol Succinate ER 50 MG TAB.ER.24H PO (09:53)
[2023-11-01] MEDS: Aspirin Enteric Coated 81 MG TABLET.DR PO (09:53)
[2023-11-01] MEDS: Ferrous Sulfate 324 MG TABLET.DR PO (09:53)
[2023-11-01] MEDS: Sertraline HCL 25 MG TABLET PO (09:53)
[2023-11-01] MEDS: Cholecalciferol (Vitamin D3) 25 MCG TABLET PO (09:53)
[2023-11-01] MEDS: Omeprazole 20 MG CAPSULE.DR PO (09:53)
[2023-11-01] MEDS: Finasteride 5 MG TABLET PO (09:53)
[2023-11-01] MEDS: Sacubitril/Valsartan 24/26 1 TAB TABLET PO ×2 (09:56→22:49)
--- NOTE | 2023-11-01 09:57 | PC.NURSE ---
pt medicated per order, few at time on spoon whole with water pt refused lido patch primary nurse aware of missing lotions _flat rn
[2023-11-01] MEDS: 0.9 % Sodium Chloride Flush 3 ML SYRINGE IVFLUSH ×3 (09:59→22:51)
[2023-11-01] MEDS: Hydrocortisone 1 % Cream 28.35 GM TUBE 1 APPL TOPICAL ×2 (10:32→22:53)
[2023-11-01] MEDS: Triamcinolone Acet 0.1 % Cream 15 GM TUBE 1 APPL TOPICAL ×2 (10:33→22:54)
[2023-11-01] MEDS: Clotrimazole 1 % Cream 15 GM TUBE 1 APPL TOPICAL ×2 (10:33→22:54)
[2023-11-01 12:14] LABS: Glucose, Whole Blood 196 mg/dL (60-115)
--- NOTE | 2023-11-01 13:51 | MHC.CM.PN ---
Attempted to meet with patient in regards to discharge planning. Nursing care currently being provided. Attempted to speak to patient's /HCP, Paty, via telephone at [phone]. No answer. Voicemail not set up. Unable to leave a message. IMM sent to Paty via certified mail. CM assessment completed using medical record. Patient is a assisted care resident of [facility]. Will need BLS transport at d/c. HCP verified to be on file. Continue to monitor for d/c needs.
--- NOTE | 2023-11-01 15:25 | MHC.EDTECH ---
THIS PCT ASSUMED CARE OF PATIENT AT 1500 ,VITALS TAKEN ,PATIENT WAS SOILED WITH DRY MEDIUM AMOUNT OF STOOL CARE GIVEN ,PATIENT WAS REPOSITION AND BOOSTED UP IN BED ,PATIENT A&O ,WARM BLANKET GIVEN .CALL REYES WITHIN PT REACH ,WILL CONTINUE TO MONITOR .
[2023-11-01 18:07] LABS: Glucose, Whole Blood 166 mg/dL (60-115)
--- NOTE | 2023-11-01 20:34 | MHC.EDTECH ---
urine sent to lab
[2023-11-01 20:44] LABS: Osmolality Urine 300 mosm/kg (373-1093)
[2023-11-01 21:40] LABS: Glucose, Whole Blood 189 mg/dL (60-115)
[2023-11-01] MEDS: Insulin Glargine,Hum.rec.anlog 100 UNIT/ML 10 ML VIAL 20 UNIT SUBCUT (22:49)
[2023-11-01] MEDS: Atorvastatin Calcium 20 MG TABLET PO (22:49)
[2023-11-01] MEDS: traZODone HCL 50 MG TABLET PO (22:49)
[2023-11-01] MEDS: Tamsulosin HCL 0.4 MG CAPSULE PO (22:49)
--- NOTE | 2023-11-01 22:55 | PC.RT ---
Pt refused CPAP
[2023-11-02] VITALS: BP 100/59; PULSE 81; RESP 20; TEMP 36.2; O2SAT 93
[2023-11-02 06:41] LABS: MANUAL DIFF FLAG NO
[2023-11-02] MEDS: Omeprazole 20 MG CAPSULE.DR PO (07:09)
--- NOTE | 2023-11-02 07:11 | PC.NURSE ---
Patient arrived from the ED and was assisted to bed by nursing staff patient is CIRCLE. He is alert and oriented to self and place hes lung sounds in upper lobes are diminshed. Abdomen is round non tender he has a suprapubic catherter in place CYU . Patient takes medications whole with no complications , he is a two assist turn and reposition in bed. Patient has a L BKA , RLE has no edema + pedal pulse. Patient refused CPAP overnight. Peria care provided and cream applied to buttock. Call triplett present he was turn and reposition in bed. Bed alarm on .
[2023-11-02 07:12] LABS: Blood Urea Nitrogen 22 mg/dL (9-16); Calcium 8.6 mg/dL (8.4-10.2); Creatinine Clr Calc Pharmacy 90.8; Estimated Glomerular Filt Rate > 60; Glucose Random 142 mg/dL (60-115)
[2023-11-02 07:20] LABS: Basophils Percent Auto 0.4 % (0-2); Eosinophils Absolute Auto 0.3 X10*3/uL (0.0-0.4); Eosinophils Percent Auto 2.4 % (0-4); Hematocrit 27.4 % (42.0-52.0); Hemoglobin 8.7 g/dl (14.0-18.0); Imm Gran Abs Auto 0.08 X10*3/uL (0.00-0.03); Imm Gran Pct Auto 0.8 % (0.0-0.4); Lymphocytes Absolute Auto 1.9 X10*3/uL (1.2-4.9); Lymphocytes Percent Auto 18.1 % (20-40); Mean Corpuscular HGB Conc 31.8 g/dl (31.0-36.0); Mean Corpuscular Volume 75.7 fL (80.0-98.0); Mean Platelet Volume 9.8 fL (9.4-12.4); Monocytes Absolute Auto 0.6 X10*3/uL (0.1-1.2); Monocytes Percent Auto 5.3 % (2-11); Neutrophils Absolute Auto 7.7 x10*3/uL (2.0-8.3); Platelet Count 199 X10*3/uL (160-400); Red Blood Count 3.62 X10*6/uL (4.60-5.80); Red Cell Distribution Width 15.3 % (11.0-16.0); White Blood Count 10.6 X10*3/uL (4.8-10.8)
[2023-11-02 07:33] LABS: Anion Gap 14 (12-20); Carbon Dioxide 26 mmol/L (22-29); Chloride 95 mmol/L (96-108); Potassium 4.8 mmol/L (3.3-5.1); Sodium 130 mmol/L (135-145)
[2023-11-02 08:00] VITALS: BP 96/55; PULSE 90; RESP 16; TEMP 36.4; O2SAT 95
[2023-11-02 08:22] LABS: Glucose, Whole Blood 145 mg/dL (60-115)
[2023-11-02] MEDS: Finasteride 5 MG TABLET PO (08:56)
[2023-11-02] MEDS: Cholecalciferol (Vitamin D3) 25 MCG TABLET PO (08:56)
[2023-11-02] MEDS: Aspirin Enteric Coated 81 MG TABLET.DR PO (08:57)
[2023-11-02] MEDS: Sertraline HCL 25 MG TABLET PO (08:57)
[2023-11-02] MEDS: Metoprolol Succinate ER 50 MG TAB.ER.24H PO (08:57)
[2023-11-02] MEDS: Ferrous Sulfate 324 MG TABLET.DR PO (08:57)
[2023-11-02] MEDS: Enoxaparin Sodium 40 MG/0.4 ML SYRINGE SUBCUT (08:57)
[2023-11-02] MEDS: 0.9 % Sodium Chloride Flush 3 ML SYRINGE IVFLUSH ×3 (09:05→20:51)
[2023-11-02] MEDS: Clotrimazole 1 % Cream 15 GM TUBE 1 APPL TOPICAL ×2 (09:06→20:42)
[2023-11-02] MEDS: Furosemide 40 MG/4 ML VIAL IVPUSH (09:06)
[2023-11-02] MEDS: Hydrocortisone 1 % Cream 28.35 GM TUBE 1 APPL TOPICAL ×3 (09:07→20:42)
[2023-11-02] MEDS: Triamcinolone Acet 0.1 % Cream 15 GM TUBE 1 APPL TOPICAL ×2 (09:07→20:41)
--- NOTE | 2023-11-02 09:38 | P.PNIM_ITS ---
Subjective Subjective Date of Service: 11/02/23 Interval History: No acute nursing events overnight. Hypoxia resolved and patient maintaining normal saturation on room air. Leg edema improved. Dyspnea + Constitutional Constitutional: Reports no additional constitutional complaints Cardiovascular Cardiovascular: Reports dyspnea on exertion and Reports orthopnea Respiratory Respiratory: Reports dyspnea on exertion Gastrointestinal Gastrointestinal: Reports no additional gastrointestinal complaints Genitourinary Genitourinary: Reports no additional male genitourinary complaints Physical Exam 2 Vital Signs: Vital Signs: Last Vital Signs Temp 97.5 F 11/02/23 08:00 Pulse 90 11/02/23 08:00 Resp 16 11/02/23 08:00 BP 96/55 L 11/02/23 08:00 Pulse Ox 95 11/02/23 08:00 O2 Del Method Room Air 11/02/23 08:00 O2 Flow Rate 1 11/02/23 00:00 Oxygen Flow Rate 4 11/01/23 03:18 BMI result Body Mass Index 35.8 Middle-aged male lying in bed in no distress Neck supple, no JVD Regular rate and rhythm, S1-S2 heard, systolic murmur present Regular breath sounds bilaterally, no wheezing or crackles appreciated Abdomen soft nontender, no guarding, no rigidity Patient is awake, alert and oriented to self, place, time and person ; no focal motor deficit Psych: Normal mood Right pedal edema present, left BKA Skin: Other: Objective Data Active Medications Acetaminophen (Acetaminophen 325 Mg Tablet) 650 mg PO Q6H PRN PRN Reason: Pain, Mild (Pain Scale 1-3), fever or headache Aspirin (Aspirin Enteric Coated 81 Mg Tablet.) 81 mg PO DAILY [facility] Last Admin: 11/02/23 08:57 Dose: 81 mg Documented By: SANJAY Atorvastatin Calcium (Atorvastatin Calcium 20 Mg Tablet) 20 mg PO BEDTIME [facility] Last Admin: 11/01/23 22:49 Dose: 20 mg Documented By: BRAULIO Bisacodyl (Bisacodyl 10 Mg Supp.Rect) 10 mg MO DAILY PRN PRN Reason: Constipation Calcium Carbonate (Calcium Carbonate 750 Mg Tab.Chew) 750 mg PO Q4H PRN PRN Reason: Heartburn Clotrimazole (Clotrimazole 1 % Cream 15 Gm Tube) 1 appl TOPICAL BID [facility] Last Admin: 11/02/23 09:06 Dose: 1 appl Documented By: SANJAY Enoxaparin Sodium (Enoxaparin Sodium 40 Mg/0.4 Ml Syringe) 40 mg SUBCUT Q24H [facility] Last Admin: 11/02/23 08:57 Dose: 40 mg Documented By: SANJAY Ferrous Sulfate (Ferrous Sulfate 324 Mg Tablet.Dr) 324 mg PO DAILY [facility] Last Admin: 11/02/23 08:57 Dose: 324 mg Documented By: SANJAY Finasteride (Finasteride 5 Mg Tablet) 5 mg PO DAILY [facility] Last Admin: 11/02/23 08:56 Dose: 5 mg Documented By: SANJAY Furosemide (Furosemide 40 Mg/4 Ml Vial) 40 mg IVPUSH DAILY [facility]; Protocol Last Admin: 11/02/23 09:06 Dose: 40 mg Documented By: SANJAY Glucose (Glucose Gel 15 Gm Gel..Gram.) 15 gm PO Q15M PRN; Protocol PRN Reason: per Hypoglycemia Standing Ord. Hydrocortisone (Hydrocortisone 1 % Cream 28.35 Gm Tube) 1 appl TOPICAL TID [facility]; Protocol Last Admin: 11/02/23 09:07 Dose: 1 appl Documented By: SANJAY Dextrose (D10) 250 mls @ 750 mls/hr IV Q15M PRN; Protocol PRN Reason: per Hypoglycemia Standing Ord. Insulin Glargine (Insulin Glargine,Hum.Rec.Anlog 100 Unit/Ml 10 Ml Vial) 20 unit SUBCUT BEDTIME [facility] Last Admin: 11/01/23 22:49 Dose: 20 unit Documented By: BRAULIO Insulin Human Lispro (Insulin Lispro 100 Unit/Ml 3 Ml Vial) 0 unit SUBCUT QIDACHS [facility]; Protocol Last Admin: 11/02/23 08:50 Dose: Not Given Documented By: SANJAY Non-Admin Reason: No Insulin Coverage Lidocaine (Lidocaine 4 % Patch Adh..Patch) 1 patch TRANSDERMA DAILY [facility] Last Admin: 11/02/23 08:58 Dose: Not Given Documented By: SANJAY Non-Admin Reason: Patient Refused Magnesium Hydroxide (Milk Of Magnesia 30 Ml Oral.Susp) 30 ml PO DAILY PRN PRN Reason: Constipation Magnesium Hydroxide (Milk Of Magnesia 30 Ml Oral.Susp) 30 ml PO DAILY PRN PRN Reason: Constipation Melatonin (Melatonin 3 Mg Tablet) 6 mg PO BEDTIME PRN PRN Reason: Insomnia Metoprolol Succinate (Metoprolol Succinate Er 50 Mg Tab.Er.24h) 50 mg PO DAILY [facility]; Protocol Last Admin: 11/02/23 08:57 Dose: 50 mg Documented By: SANJAY Omeprazole (Omeprazole 20 Mg Capsule.Dr) 20 mg PO DAILY@0630 [facility] Last Admin: 11/02/23 07:09 Dose: 20 mg Documented By: BRAULOI Ondansetron HCl (Ondansetron Hcl 4 Mg/2 Ml Vial) 4 mg IVPUSH Q8H PRN PRN Reason: Nausea and Vomiting Sacubitril/Valsartan (Sacubitril/Valsartan 1 Tab Tablet) 1 tab PO BID [facility]; Protocol Last Admin: 11/01/23 22:49 Dose: 1 tab Documented By: BRAULIO Sertraline HCl (Sertraline Hcl 25 Mg Tablet) 25 mg PO DAILY [facility] Last Admin: 11/02/23 08:57 Dose: 25 mg Documented By: SANJAY Sodium Biphosphate/Sodium Phosphate (Sodium Phosphate,Lane-Dibasic 133 Ml Enema) 118 ml MO DAILY PRN PRN Reason: Constipation Sodium Chloride (0.9 % Sodium Chloride Flush 3 Ml Syringe) 3 ml IVFLUSH QSHIFT [facility] Last Admin: 11/02/23 09:05 Dose: 3 ml Documented By: SANJAY Tamsulosin HCl (Tamsulosin Hcl 0.4 Mg Capsule) 0.4 mg PO BEDTIME [facility] Last Admin: 11/01/23 22:49 Dose: 0.4 mg Documented By: BRAULIO Trazodone HCl (Trazodone Hcl 50 Mg Tablet) 50 mg PO BEDTIME [facility] Last Admin: 11/01/23 22:49 Dose: 50 mg Documented By: BRAULIO Triamcinolone Acetonide (Triamcinolone Acet 0.1 % Cream 15 Gm Tube) 1 appl TOPICAL BID [facility]; Protocol Last Admin: 11/02/23 09:07 Dose: 1 appl Documented By: SANJAY Vitamin D (Cholecalciferol (Vitamin D3) 25 Mcg Tablet) 25 mcg PO DAILY [facility] Last Admin: 11/02/23 08:56 Dose: 25 mcg Documented By: SANJAY Labs 11/02/23 06:34 11/02/23 06:34 Labs: Laboratory Results - last 24 hr 07/10/24 07/10/24 07/10/24 12:10 18:02 20:30 MCV MCH MCHC RDW Plt Count MPV Immature Gran % (Auto) Neut % (Auto) Lymph % (Auto) Lane % (Auto) Eos % (Auto) Baso % (Auto) Lymph # (Auto) Lane # (Auto) Eos # (Auto) Baso # (Auto) Abs Immat Gran (auto) Absolute Neuts (auto) Absolute Nucleated RBC Nucleated RBC % (auto) Anion Gap Estim Creat Clear Calc Estimated GFR POC Glucose 196 H 166 H Random Glucose Calcium Urine Osmolality 300 L Ur Random Sodium 24.0 11/01/23 11/02/23 11/02/23 21:37 06:34 08:01 MCV 75.7 L MCH 24.0 L MCHC 31.8 RDW 15.3 Plt Count 199 MPV 9.8 Immature Gran % (Auto) 0.8 H Neut % (Auto) 73.0 Lymph % (Auto) 18.[address] % (Auto) 5.3 Eos % (Auto) 2.4 Baso % (Auto) 0.4 Lymph # (Auto) 1.9 Lane # (Auto) 0.6 Eos # (Auto) 0.3 Baso # (Auto) 0.0 Abs Immat Gran (auto) 0.08 H Absolute Neuts (auto) 7.7 Absolute Nucleated RBC 0.000 Nucleated RBC % (auto) 0.0 Anion Gap 14 Estim Creat Clear Calc 90.8 Estimated GFR > 60 POC Glucose 189 H 145 H Random Glucose 142 H Calcium 8.6 Urine Osmolality Ur Random Sodium Assessment and Plan (1) CHF exacerbation: Status: Acute Plan This is a 82-year-old male with pertinent history of CAD, severe aortic stenosis, insulin-dependent diabetes mellitus, mixed hyperlipidemia, BPH, congestive heart failure with combined systolic and diastolic dysfunction, recent PEA cardiac arrest, suprapubic catheter, PVD status post left BKA who was transferred from snf facility for evaluation of dyspnea. #. Acute hypoxic respiratory failure due to exacerbation of Congestive heart failure with reduced ejection fraction: Hypoxia resolved. Continue IV diuresis one more day>> switch to po in am. Continue Entresto, beta-stephon. Strict I's and O's low-salt diet #. Insulin-dependent diabetes mellitus with hyperglycemia: Continue basal plus insulin regimen #. Hyponatremia, mild: Appears chronic. #. Sacral decubitus stage I: Consulted Wound Care #. BPH: On Flomax and finasteride #. Mood disorder: On sertraline and trazodone #. Gastroesophageal reflux disease: On PPI #. PAULETTE: CPAP at bedtime #. Coronary artery disease: On aspirin and statin DVT prophylaxis: Lovenox Full code. Discussed with patient at bedside Tried contacting spouse via phone (10/31 and 11/01). No answer Reason for continued hospitalization: IV diuresis for 1 more day and optimization of volume status. Quality Stroke Does the patient have a stroke diagnosis?: No VTE Prior VTE?: No VTE Risk Level:: Medical - moderate - high VTE Device Contraindication: Treatment Not Indicated VTE Drug Contraindication: N/A - Med Ordered
[2023-11-02] MEDS: Sacubitril/Valsartan 24/26 1 TAB TABLET PO ×2 (10:50→20:40)
[2023-11-02 11:43] LABS: Glucose, Whole Blood 200 mg/dL (60-115)
[2023-11-02 12:00] VITALS: BP 96/51; PULSE 88; RESP 20; TEMP 36.6; O2SAT 97
[2023-11-02] MEDS: Insulin Glargine,Hum.rec.anlog 100 UNIT/ML 10 ML VIAL 20 UNIT SUBCUT ×2 (12:07→20:51)
[2023-11-02] MEDS: Insulin Lispro 100 UNIT/ML 3 ML VIAL SUBCUT ×3 (12:08→20:51)
--- NOTE | 2023-11-02 13:42 | P.CONCA_ITS ---
History of Present Illness History of Present Illness Date of Service: 11/02/23 Requesting physician: Chelsea Corado Chief complaint: Dyspnea Narrative: Pleasant 82-year-old gentleman with known severe aortic valve stenosis and recent cardiac arrest was transferred to [facility] where he underwent workup and plan was to do outpatient transcatheter aortic valve replacement in the coming weeks. He is presenting with shortness of breath and congestive heart failure. Somewhat poor historian and hard of hearing. He said he was short of breath and that is main reason he was brought to the emergency department. No chest discomfort. Blood pressure has been somewhat soft. He was started on IV diuretics with improvement in symptoms. He is still on supplemental oxygen. Also noticed to be anemic. [facility] Past Medical History Medical History (Updated 11/02/23 @ 15:38 by Leon Marquez MD) Umbilical hernia HLD (hyperlipidemia) GERD (gastroesophageal reflux disease) Suprapubic catheter Insulin dependent type 2 diabetes mellitus CAD (coronary artery disease) Aortic stenosis Social History Social History Household Members: None Housing: Correction Housing Other:: Mobile Home Do you presently have visiting nurse or other home services: Yes ( couple times a week ) Unable to assess alcohol history related to: Unable to respond Alcohol intake: never Patient Tobacco Use Status: Former Tobacco user Tobacco use type: Cigarette Advance Directives Date on File: 09/17/23 service: No Meds Allergies Allergy/AdvReac Type Severity Reaction Status Date / Time No Known Allergies Allergy Verified 11/01/23 03:21 Active Medications: Current Medications Acetaminophen (Acetaminophen 325 Mg Tablet) 650 mg PO Q6H PRN PRN Reason: Pain, Mild (Pain Scale 1-3), fever or headache Aspirin (Aspirin Enteric Coated 81 Mg Tablet.) 81 mg PO DAILY [facility] Last Admin: 11/02/23 08:57 Dose: 81 mg Atorvastatin Calcium (Atorvastatin Calcium 20 Mg Tablet) 20 mg PO BEDTIME [facility] Last Admin: 11/01/23 22:49 Dose: 20 mg Bisacodyl (Bisacodyl 10 Mg Supp.Rect) 10 mg DE DAILY PRN PRN Reason: Constipation Calcium Carbonate (Calcium Carbonate 750 Mg Tab.Chew) 750 mg PO Q4H PRN PRN Reason: Heartburn Clotrimazole (Clotrimazole 1 % Cream 15 Gm Tube) 1 appl TOPICAL BID [facility] Last Admin: 11/02/23 09:06 Dose: 1 appl Enoxaparin Sodium (Enoxaparin Sodium 40 Mg/0.4 Ml Syringe) 40 mg SUBCUT Q24H [facility] Last Admin: 11/02/23 08:57 Dose: 40 mg Ferrous Sulfate (Ferrous Sulfate 324 Mg Tablet.) 324 mg PO DAILY [facility] Last Admin: 11/02/23 08:57 Dose: 324 mg Finasteride (Finasteride 5 Mg Tablet) 5 mg PO DAILY [facility] Last Admin: 11/02/23 08:56 Dose: 5 mg Furosemide (Furosemide 40 Mg Tablet) 40 mg PO DAILY [facility]; Protocol Glucose (Glucose Gel 15 Gm Gel..Gram.) 15 gm PO Q15M PRN; Protocol PRN Reason: per Hypoglycemia Standing Ord. Hydrocortisone (Hydrocortisone 1 % Cream 28.35 Gm Tube) 1 appl TOPICAL TID [facility]; Protocol Last Admin: 11/02/23 09:07 Dose: 1 appl Dextrose (D10) 250 mls @ 750 mls/hr IV Q15M PRN; Protocol PRN Reason: per Hypoglycemia Standing Ord. Insulin Glargine (Insulin Glargine,Hum.Rec.Anlog 100 Unit/Ml 10 Ml Vial) 20 unit SUBCUT BEDTIME [facility] Last Admin: 11/02/23 12:07 Dose: 2 unit Insulin Human Lispro (Insulin Lispro 100 Unit/Ml 3 Ml Vial) 0 unit SUBCUT QIDACHS [facility]; Protocol Last Admin: 11/02/23 12:08 Dose: 2 unit Lidocaine (Lidocaine 4 % Patch Adh..Patch) 1 patch TRANSDERMA DAILY [facility] Last Admin: 11/02/23 08:58 Dose: Not Given Magnesium Hydroxide (Milk Of Magnesia 30 Ml Oral.Susp) 30 ml PO DAILY PRN PRN Reason: Constipation Magnesium Hydroxide (Milk Of Magnesia 30 Ml Oral.Susp) 30 ml PO DAILY PRN PRN Reason: Constipation Melatonin (Melatonin 3 Mg Tablet) 6 mg PO BEDTIME PRN PRN Reason: Insomnia Metoprolol Succinate (Metoprolol Succinate Er 50 Mg Tab.Er.24h) 50 mg PO DAILY [facility]; Protocol Last Admin: 11/02/23 08:57 Dose: 50 mg Omeprazole (Omeprazole 20 Mg Capsule.) 20 mg PO DAILY@0630 [facility] Last Admin: 11/02/23 07:09 Dose: 20 mg Ondansetron HCl (Ondansetron Hcl 4 Mg/2 Ml Vial) 4 mg IVPUSH Q8H PRN PRN Reason: Nausea and Vomiting Sacubitril/Valsartan (Sacubitril/Valsartan 1 Tab Tablet) 1 tab PO BID [facility]; Protocol Last Admin: 11/02/23 10:50 Dose: 1 tab Sertraline HCl (Sertraline Hcl 25 Mg Tablet) 25 mg PO DAILY [facility] Last Admin: 11/02/23 08:57 Dose: 25 mg Sodium Biphosphate/Sodium Phosphate (Sodium Phosphate,Creek-Dibasic 133 Ml Enema) 118 ml DE DAILY PRN PRN Reason: Constipation Sodium Chloride (0.9 % Sodium Chloride Flush 3 Ml Syringe) 3 ml IVFLUSH QSHIFT [facility] Last Admin: 11/02/23 09:05 Dose: 3 ml Tamsulosin HCl (Tamsulosin Hcl 0.4 Mg Capsule) 0.4 mg PO BEDTIME [facility] Last Admin: 11/01/23 22:49 Dose: 0.4 mg Trazodone HCl (Trazodone Hcl 50 Mg Tablet) 50 mg PO BEDTIME [facility] Last Admin: 11/01/23 22:49 Dose: 50 mg Triamcinolone Acetonide (Triamcinolone Acet 0.1 % Cream 15 Gm Tube) 1 appl TOPICAL BID [facility]; Protocol Last Admin: 11/02/23 09:07 Dose: 1 appl Vitamin D (Cholecalciferol (Vitamin D3) 25 Mcg Tablet) 25 mcg PO DAILY [facility] Last Admin: 11/02/23 08:56 Dose: 25 mcg Home Medications ?Medication ?Instructions ?Recorded ?Confirmed ?Last Taken ?Type acetaminophen 325 mg tablet 650 mg PO Q6H PRN Pain 09/17/23 11/01/23 Unknown History aspirin 81 mg tablet,delayed 81 mg PO DAILY 09/17/23 11/01/23 Unknown History release bisacodyl 10 mg rectal suppository 10 mg DE DAILY PRN Constipation 09/17/23 11/01/23 Unknown History cholecalciferol (vitamin D3) 25 25 mcg PO DAILY 09/17/23 11/01/23 Unknown History mcg (1,000 unit) capsule (Vitamin D3) clotrimazole 1 % lotion 1 appl topical BID 09/17/23 11/01/23 Unknown History dulaglutide 0.75 mg/0.5 mL 1.5 mg subcut TU 09/17/23 11/01/23 Unknown History subcutaneous pen injector (Trulicity) finasteride 5 mg tablet 5 mg PO DAILY 09/17/23 11/01/23 Unknown History furosemide 40 mg tablet 40 mg PO DAILY 09/17/23 11/01/23 Unknown History insulin glargine 100 unit/mL (3 26 unit subcut BEDTIME 09/17/23 11/01/23 Unknown History mL) subcutaneous pen (Basaglar KwikPen U-100 Insulin) insulin lispro 100 unit/mL 26 unit subcut TIDAC 09/17/23 11/01/23 Unknown History subcutaneous solution (Humalog U-100 Insulin) magnesium hydroxide 400 mg/5 mL 30 ml PO DAILY PRN Constipation 09/17/23 11/01/23 Unknown History oral suspension (Milk of Magnesia) omeprazole 20 mg capsule,delayed 20 mg PO DAILY 09/17/23 11/01/23 Unknown History release psyllium husk 0.4 gram capsule 0.8 g PO DAILY PRN Constipation 09/17/23 11/01/23 Unknown History (Metamucil) sertraline 25 mg tablet 25 mg PO DAILY 09/17/23 11/01/23 Unknown History simvastatin 40 mg tablet 40 mg PO BEDTIME 09/17/23 11/01/23 Unknown History sodium phosphates 19 gram-7 118 ml DE DAILY PRN Constipation 09/17/23 11/01/23 Unknown History gram/118 mL enema (Fleet Enema) tamsulosin 0.4 mg capsule 0.4 mg PO BEDTIME 09/17/23 11/01/23 Unknown History triamcinolone acetonide 0.1 % 1 appl topical BID 09/17/23 11/01/23 Unknown History topical cream ferrous sulfate 325 mg (65 mg 325 mg PO DAILY 11/01/23 11/01/23 Unknown History iron) tablet hydrocortisone 1 % topical cream 1 appl topical TID 11/01/23 11/01/23 Unknown History ipratropium 0.5 mg-albuterol 3 mg 3 ml inhalation Q6H PRN SOB 11/01/23 11/01/23 Unknown History (2.5 mg base)/3 mL nebulization soln lidocaine 5 % topical patch 1 patch topical DAILY 11/01/23 11/01/23 Unknown History metoprolol succinate 50 mg 50 mg PO DAILY 11/01/23 11/01/23 Unknown History tablet,extended release 24 hr sacubitril 24 mg-valsartan 26 mg 1 tab PO BID 11/01/23 11/01/23 Unknown History tablet (Entresto) trazodone 50 mg tablet 50 mg PO BEDTIME 11/01/23 11/01/23 Unknown History Physical Exam 2 Vital Signs: Vital Signs: Last Vital Signs Temp 97.8 F 11/02/23 12:00 Pulse 88 11/02/23 12:00 Resp 20 11/02/23 12:00 BP 96/51 L 11/02/23 12:00 Pulse Ox 97 11/02/23 12:00 O2 Del Method Nasal Cannula 11/02/23 12:00 O2 Flow Rate 1 11/02/23 12:00 Oxygen Flow Rate 4 11/01/23 03:18 BMI result Body Mass Index 35.8 GENERAL APPEARANCE: On supplemental oxygen. NECK: no carotid bruit, no obvious jugular venous distention. SKIN: no suspicious lesions, warm and dry. HEART: Systolic murmur aortic area, regular rate and rhythm. LUNGS: clear to auscultation bilaterally. ABDOMEN: soft, nontender. EXTREMITIES: Mild edema. Left below-knee amputation. PERIPHERAL PULSES: equal. NEUROLOGIC: No gross deficits, AAO X 3 Objective Labs and Meds 11/02/23 06:34 11/02/23 06:34 Lab results: Laboratory Results - last 24 hr 11/01/23 11/01/23 11/01/23 18:02 20:30 21:37 WBC RBC Hgb Hct MCV MCH MCHC RDW Plt Count MPV Immature Gran % (Auto) Neut % (Auto) Lymph % (Auto) Creek % (Auto) Eos % (Auto) Baso % (Auto) Lymph # (Auto) Creek # (Auto) Eos # (Auto) Baso # (Auto) Abs Immat Gran (auto) Absolute Neuts (auto) Absolute Nucleated RBC Nucleated RBC % (auto) Sodium Potassium Chloride Carbon Dioxide Anion Gap BUN Creatinine Estim Creat Clear Calc Estimated GFR POC Glucose 166 H 189 H Random Glucose Calcium Urine Osmolality 300 L Ur Random Sodium 24.0 07/11/24 07/11/24 07/11/24 06:34 08:01 11:28 WBC 10.6 RBC 3.62 L Hgb 8.7 L Hct 27.4 L MCV 75.7 L MCH 24.0 L MCHC 31.8 RDW 15.3 Plt Count 199 MPV 9.8 Immature Gran % (Auto) 0.8 H Neut % (Auto) 73.0 Lymph % (Auto) 18.1 L Creek % (Auto) 5.3 Eos % (Auto) 2.4 Baso % (Auto) 0.4 Lymph # (Auto) 1.9 Creek # (Auto) 0.6 Eos # (Auto) 0.3 Baso # (Auto) 0.0 Abs Immat Gran (auto) 0.08 H Absolute Neuts (auto) 7.7 Absolute Nucleated RBC 0.000 Nucleated RBC % (auto) 0.0 Sodium 130 L Potassium 4.8 Chloride 95 L Carbon Dioxide 26 Anion Gap 14 BUN 22 H Creatinine 0.79 Estim Creat Clear Calc 90.8 Estimated GFR > 60 POC Glucose 145 H 200 H Random Glucose 142 H Calcium 8.6 Urine Osmolality Ur Random Sodium Assessment and Plan (1) Aortic stenosis: Status: Acute (2) CHF exacerbation: Status: Acute Plan Pleasant 82-year-old gentleman presenting with congestive heart failure on background of severe aortic valve stenosis. He is being considered for transcatheter aortic valve replacement. Would favor giving him another dose of IV Lasix and changing him to 40 mg p.o. b.i.d. Lasix from tomorrow. I have discussed the case at [facility] with Dr. Calixto and we will transfer him over the weekend for potential inpatient transcatheter aortic valve replacement next week. Thank you for allowing me to participate in the care of your patient. Please feel free to contact me if you have any questions. Procedures Date of Service Date of Service: 11/02/23
[2023-11-02 16:00] VITALS: BP 96/54; PULSE 87; RESP 18; TEMP 36.6; O2SAT 95
[2023-11-02 16:58] LABS: Glucose, Whole Blood 218 mg/dL (60-115)
[2023-11-02 19:38] VITALS: BP 102/59; PULSE 84; RESP 18; TEMP 36.3; O2SAT 94
[2023-11-02] MEDS: Atorvastatin Calcium 20 MG TABLET PO (20:40)
[2023-11-02] MEDS: traZODone HCL 50 MG TABLET PO (20:40)
[2023-11-02] MEDS: Tamsulosin HCL 0.4 MG CAPSULE PO (20:40)
[2023-11-02 20:52] LABS: Glucose, Whole Blood 187 mg/dL (60-115)
[2023-11-02 23:28] VITALS: BP 100/55; PULSE 82; RESP 18; TEMP 36.2; O2SAT 93
[2023-11-03 03:40] VITALS: BP 102/57; PULSE 83; RESP 18; TEMP 36.4; O2SAT 91
--- NOTE | 2023-11-03 05:20 | PC.RT ---
Pt refused CPAP
[2023-11-03] MEDS: Omeprazole 20 MG CAPSULE.DR PO (06:35)
[2023-11-03 06:42] LABS: Anion Gap 13 (12-20); Blood Urea Nitrogen 17 mg/dL (9-16); Calcium 8.4 mg/dL (8.4-10.2); Carbon Dioxide 28 mmol/L (22-29); Chloride 90 mmol/L (96-108); Creatinine Clr Calc Pharmacy 113.9; Estimated Glomerular Filt Rate > 60; Glucose Random 141 mg/dL (60-115); Potassium 4.6 mmol/L (3.3-5.1); Sodium 126 mmol/L (135-145)
[2023-11-03 07:39] LABS: Glucose, Whole Blood 140 mg/dL (60-115)
[2023-11-03 07:41] VITALS: BP 127/64; PULSE 89; RESP 20; TEMP 36.6; O2SAT 92
--- NOTE | 2023-11-03 10:18 | MHC.CM.PN ---
Per ROUNDS discussion, Patient will be transferred to [facility] over this weekend. CM will follow.
[2023-11-03] MEDS: Enoxaparin Sodium 40 MG/0.4 ML SYRINGE SUBCUT (10:28)
[2023-11-03] MEDS: Acetaminophen 325 MG TABLET 650 MG PO (10:30)
[2023-11-03] MEDS: Ferrous Sulfate 324 MG TABLET.DR PO (10:31)
[2023-11-03] MEDS: Metoprolol Succinate ER 50 MG TAB.ER.24H PO (10:31)
[2023-11-03] MEDS: Finasteride 5 MG TABLET PO (10:31)
[2023-11-03] MEDS: Sacubitril/Valsartan 24/26 1 TAB TABLET PO ×2 (10:31→20:48)
[2023-11-03] MEDS: Aspirin Enteric Coated 81 MG TABLET.DR PO (10:32)
[2023-11-03] MEDS: Sertraline HCL 25 MG TABLET PO (10:32)
[2023-11-03] MEDS: Furosemide 40 MG TABLET PO ×2 (10:32→20:49)
[2023-11-03] MEDS: Cholecalciferol (Vitamin D3) 25 MCG TABLET PO (10:32)
[2023-11-03] MEDS: 0.9 % Sodium Chloride Flush 3 ML SYRINGE IVFLUSH ×3 (10:33→20:49)
[2023-11-03] MEDS: Hydrocortisone 1 % Cream 28.35 GM TUBE 1 APPL TOPICAL ×3 (10:35→20:48)
[2023-11-03] MEDS: Triamcinolone Acet 0.1 % Cream 15 GM TUBE 1 APPL TOPICAL ×2 (10:36→20:49)
--- NOTE | 2023-11-03 10:37 | P.PNCA_ITS ---
Subjective Subjective Date of Service: 11/03/23 Interval history: Seen and examined at bedside. complaining of nausea. Off Iv Lasix. Physical Exam Vital Signs: Last Vital Signs Temp 97.9 F 11/03/23 07:41 Pulse 89 11/03/23 07:41 Resp 20 11/03/23 07:41 BP 127/64 11/03/23 07:41 Pulse Ox 92 11/03/23 07:41 O2 Del Method Nasal Cannula 11/03/23 07:41 O2 Flow Rate 2 11/03/23 07:41 Oxygen Flow Rate 4 11/01/23 03:18 BMI result Body Mass Index 35.8 GENERAL APPEARANCE: On supplemental oxygen. NECK: no carotid bruit, no obvious jugular venous distention. SKIN: no suspicious lesions, warm and dry. HEART: Systolic murmur aortic area, regular rate and rhythm. LUNGS: clear to auscultation bilaterally. ABDOMEN: soft, nontender. EXTREMITIES: Mild edema. Left below-knee amputation. PERIPHERAL PULSES: equal. NEUROLOGIC: No gross deficits, AAO X 3 Objective Labs and Meds 11/02/23 06:34 11/03/23 05:40 Lab results: Laboratory Results - last 24 hr 11/02/23 11/02/23 11/02/23 11:28 16:49 20:44 Sodium Potassium Chloride Carbon Dioxide Anion Gap BUN Creatinine Estim Creat Clear Calc Estimated GFR POC Glucose 200 H 218 H 187 H Random Glucose Calcium 11/03/23 11/03/23 05:40 07:24 Sodium 126 L Potassium 4.6 Chloride 90 L Carbon Dioxide 28 Anion Gap 13 BUN 17 H Creatinine 0.63 Estim Creat Clear Calc 113.9 Estimated GFR > 60 POC Glucose 140 H Random Glucose 141 H Calcium 8.4 Progress Note: A&P Assessment and plan (1) Aortic stenosis: Status: Acute (2) CHF exacerbation: Status: Acute Plan 82 male with and CHD Diuresed and improving. c/w PO Lasix 40 mg BID Zofran for nausea. Plan to transfer for inpatient TAVR next week. Transfer to [facility] over weekend. Time Spent With Patient Time: Total time managing care of this patient today ____ minutes. Progress Note: Quality Stroke Does the patient have a stroke diagnosis?: No Procedures Date of Service Date of Service: 11/03/23
[2023-11-03] MEDS: Clotrimazole 1 % Cream 15 GM TUBE 1 APPL TOPICAL ×2 (10:38→20:49)
--- NOTE | 2023-11-03 10:49 | P.PNIM_ITS ---
Subjective Subjective Date of Service: 11/03/23 Interval History: No acute nursing events overnight. Patient states he feels better and his breathing has improved. Constitutional Constitutional: Reports no additional constitutional complaints Cardiovascular Cardiovascular: Reports dyspnea on exertion and Reports orthopnea Respiratory Respiratory: Reports dyspnea on exertion Gastrointestinal Gastrointestinal: Reports no additional gastrointestinal complaints Genitourinary Genitourinary: Reports no additional male genitourinary complaints Physical Exam 2 Vital Signs: Vital Signs: Last Vital Signs Temp 97.9 F 11/03/23 07:41 Pulse 89 11/03/23 07:41 Resp 20 11/03/23 07:41 BP 127/64 11/03/23 07:41 Pulse Ox 92 11/03/23 07:41 O2 Del Method Nasal Cannula 11/03/23 07:41 O2 Flow Rate 2 11/03/23 07:41 Oxygen Flow Rate 4 11/01/23 03:18 BMI result Body Mass Index 35.8 Middle-aged male lying in bed in no distress Neck supple, no JVD Regular rate and rhythm, S1-S2 heard, systolic murmur present Regular breath sounds bilaterally, no wheezing or crackles appreciated Abdomen soft nontender, no guarding, no rigidity Patient is awake, alert and oriented to self, place, time and person ; no focal motor deficit Psych: Normal mood Right pedal edema present, left BKA Skin: Other: Objective Data Active Medications Acetaminophen (Acetaminophen 325 Mg Tablet) 650 mg PO Q6H PRN PRN Reason: Pain, Mild (Pain Scale 1-3), fever or headache Last Admin: 11/03/23 10:30 Dose: 650 mg Documented By: ANOOP Aspirin (Aspirin Enteric Coated 81 Mg Tablet.Dr) 81 mg PO DAILY [facility] Last Admin: 11/03/23 10:32 Dose: 81 mg Documented By: ANOOP Atorvastatin Calcium (Atorvastatin Calcium 20 Mg Tablet) 20 mg PO BEDTIME [facility] Last Admin: 11/02/23 20:40 Dose: 20 mg Documented By: BRAULIO Bisacodyl (Bisacodyl 10 Mg Supp.Rect) 10 mg MD DAILY PRN PRN Reason: Constipation Calcium Carbonate (Calcium Carbonate 750 Mg Tab.Chew) 750 mg PO Q4H PRN PRN Reason: Heartburn Clotrimazole (Clotrimazole 1 % Cream 15 Gm Tube) 1 appl TOPICAL BID [facility] Last Admin: 11/03/23 10:38 Dose: 1 appl Documented By: ANOOP Enoxaparin Sodium (Enoxaparin Sodium 40 Mg/0.4 Ml Syringe) 40 mg SUBCUT Q24H [facility] Last Admin: 11/03/23 10:28 Dose: 40 mg Documented By: ANOOP Ferrous Sulfate (Ferrous Sulfate 324 Mg Tablet.Dr) 324 mg PO DAILY [facility] Last Admin: 11/03/23 10:31 Dose: 324 mg Documented By: ANOOP Finasteride (Finasteride 5 Mg Tablet) 5 mg PO DAILY [facility] Last Admin: 11/03/23 10:31 Dose: 5 mg Documented By: ANOOP Furosemide (Furosemide 40 Mg Tablet) 40 mg PO BID [facility]; Protocol Last Admin: 11/03/23 10:32 Dose: 40 mg Documented By: ANOOP Glucose (Glucose Gel 15 Gm Gel..Gram.) 15 gm PO Q15M PRN; Protocol PRN Reason: per Hypoglycemia Standing Ord. Guaifenesin (Guaifenesin 100 Mg/5 Ml Liquid) 5 ml PO Q4H PRN PRN Reason: Cough Hydrocortisone (Hydrocortisone 1 % Cream 28.35 Gm Tube) 1 appl TOPICAL TID [facility]; Protocol Last Admin: 11/03/23 10:35 Dose: 1 appl Documented By: ANOOP Dextrose (D10) 250 mls @ 750 mls/hr IV Q15M PRN; Protocol PRN Reason: per Hypoglycemia Standing Ord. Insulin Glargine (Insulin Glargine,Hum.Rec.Anlog 100 Unit/Ml 10 Ml Vial) 20 unit SUBCUT BEDTIME [facility] Last Admin: 11/02/23 20:51 Dose: 20 unit Documented By: BRAULIO Insulin Human Lispro (Insulin Lispro 100 Unit/Ml 3 Ml Vial) 0 unit SUBCUT QIDACHS [facility]; Protocol Last Admin: 11/03/23 10:34 Dose: Not Given Documented By: ANOOP Non-Admin Reason: No Insulin Coverage Lidocaine (Lidocaine 4 % Patch Adh..Patch) 1 patch TRANSDERMA DAILY [facility] Last Admin: 11/03/23 10:38 Dose: Not Given Documented By: ANOOP Non-Admin Reason: Patient Refused Magnesium Hydroxide (Milk Of Magnesia 30 Ml Oral.Susp) 30 ml PO DAILY PRN PRN Reason: Constipation Magnesium Hydroxide (Milk Of Magnesia 30 Ml Oral.Susp) 30 ml PO DAILY PRN PRN Reason: Constipation Melatonin (Melatonin 3 Mg Tablet) 6 mg PO BEDTIME PRN PRN Reason: Insomnia Metoprolol Succinate (Metoprolol Succinate Er 50 Mg Tab.Er.24h) 50 mg PO DAILY [facility]; Protocol Last Admin: 11/03/23 10:31 Dose: 50 mg Documented By: ANOOP Omeprazole (Omeprazole 20 Mg Capsule.Dr) 20 mg PO DAILY@0630 [facility] Last Admin: 11/03/23 06:35 Dose: 20 mg Documented By: BRAULIO Ondansetron HCl (Ondansetron Hcl 4 Mg/2 Ml Vial) 4 mg IVPUSH Q8H PRN PRN Reason: Nausea and Vomiting Sacubitril/Valsartan (Sacubitril/Valsartan 1 Tab Tablet) 1 tab PO BID [facility]; Protocol Last Admin: 11/03/23 10:31 Dose: 1 tab Documented By: ANOOP Sertraline HCl (Sertraline Hcl 25 Mg Tablet) 25 mg PO DAILY [facility] Last Admin: 11/03/23 10:32 Dose: 25 mg Documented By: ANOOP Sodium Biphosphate/Sodium Phosphate (Sodium Phosphate,[place]-Dibasic 133 Ml Enema) 118 ml MD DAILY PRN PRN Reason: Constipation Sodium Chloride (0.9 % Sodium Chloride Flush 3 Ml Syringe) 3 ml IVFLUSH QSHIFT [facility] Last Admin: 11/03/23 10:33 Dose: 3 ml Documented By: ANOOP Tamsulosin HCl (Tamsulosin Hcl 0.4 Mg Capsule) 0.4 mg PO BEDTIME [facility] Last Admin: 11/02/23 20:40 Dose: 0.4 mg Documented By: BRAULIO Trazodone HCl (Trazodone Hcl 50 Mg Tablet) 50 mg PO BEDTIME [facility] Last Admin: 11/02/23 20:40 Dose: 50 mg Documented By: BRAULIO Triamcinolone Acetonide (Triamcinolone Acet 0.1 % Cream 15 Gm Tube) 1 appl TOPICAL BID [facility]; Protocol Last Admin: 11/03/23 10:36 Dose: 1 appl Documented By: ANOOP Vitamin D (Cholecalciferol (Vitamin D3) 25 Mcg Tablet) 25 mcg PO DAILY [facility] Last Admin: 11/03/23 10:32 Dose: 25 mcg Documented By: ANOOP Labs 11/02/23 06:34 11/03/23 05:40 Labs: Laboratory Results - last 24 hr 11/02/23 11/02/23 11/02/23 11:28 16:49 20:44 Anion Gap Estim Creat Clear Calc Estimated GFR POC Glucose 200 H 218 H 187 H Random Glucose Calcium 11/03/23 11/03/23 05:40 07:24 Anion Gap 13 Estim Creat Clear Calc 113.9 Estimated GFR > 60 POC Glucose 140 H Random Glucose 141 H Calcium 8.4 Assessment and Plan (1) Severe aortic stenosis: Status: Acute (2) CHF exacerbation: Status: Acute Plan This is a 82-year-old male with pertinent history of CAD, severe aortic stenosis, insulin-dependent diabetes mellitus, mixed hyperlipidemia, BPH, 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 #. Acute hypoxic respiratory failure due to exacerbation of Congestive heart failure with reduced ejection fraction with a patient with severe : Hypoxia improved. Initially on IV Lasix>>transitioned to p.o. diuretics. Continue Entresto, beta-stephon. Strict I's and O's low-salt diet. Appreciate Cardiology input. Plan to transfer to [facility] on 11/04 for TAVR early next week by Dr. Calixto. #. Insulin-dependent diabetes mellitus with hyperglycemia: Continue basal plus insulin regimen #. Hyponatremia, mild: Appears chronic. Obtaining urine studies and consulting Nephrology #. Sacral decubitus stage I: Consulted Wound Care #. BPH: On Flomax and finasteride #. Mood disorder: On sertraline and trazodone #. Gastroesophageal reflux disease: On PPI #. PAULETTE: CPAP at bedtime #. Coronary artery disease: On aspirin and statin DVT prophylaxis: Lovenox Full code. Discussed with patient and daughter Updated daughter Tiffany @ [phone] Reason for continued hospitalization: Close monitoring of volume status and monitoring serum electrolytes. Transfer to [facility] on 11/04 for TAVR Quality Stroke Does the patient have a stroke diagnosis?: No VTE Prior VTE?: No VTE Risk Level:: Medical - moderate - high VTE Device Contraindication: Treatment Not Indicated VTE Drug Contraindication: N/A - Med Ordered
[2023-11-03] MEDS: Calcium Carbonate 750 MG TAB.CHEW PO (10:54)
[2023-11-03 11:28] LABS: Glucose, Whole Blood 205 mg/dL (60-115)
[2023-11-03 11:35] VITALS: BP 118/63; PULSE 91; RESP 19; TEMP 36.4; O2SAT 92
--- NOTE | 2023-11-03 12:27 | P.CONNP_ITS ---
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 Patient was satting 77% on room air at outside facility and was placed on CPAP via EMS with improved oxygenation. Patient states he has been feeling unwell for the last 2 days. Endorses dyspnea which is worse when laying down. Also has nonproductive cough. No fever, chills, chest discomfort, palpitations, abdominal pain, changes in bowel habits. Patient states his dyspnea feel similar to when he was in the hospital for CHF exacerbation 2 months ago. Consult requested for hyponatremia He has history of chronic hyponatremia Review of Systems Review of Systems Yes Unobtainable due to mental status PMFSH Past Medical History Medical History (Updated 11/03/23 @ 12:28 by Bjorn Daly MD) Umbilical hernia HLD (hyperlipidemia) GERD (gastroesophageal reflux disease) Suprapubic catheter Insulin dependent type 2 diabetes mellitus CAD (coronary artery disease) Aortic stenosis Social History Social History Household Members: None Housing: [facility] Housing Other:: Mobile Home Do you presently have visiting nurse or other home services: Yes ( couple times a week ) Unable to assess alcohol history related to: Unable to respond Alcohol intake: never Patient Tobacco Use Status: Former Tobacco user Tobacco use type: Cigarette Advance Directives Date on File: 09/17/23 service: No Meds Allergies Allergy/AdvReac Type Severity Reaction Status Date / Time No Known Allergies Allergy Verified 11/01/23 03:21 Active Medications: Current Medications Acetaminophen (Acetaminophen 325 Mg Tablet) 650 mg PO Q6H PRN PRN Reason: Pain, Mild (Pain Scale 1-3), fever or headache Last Admin: 11/03/23 10:30 Dose: 650 mg Aspirin (Aspirin Enteric Coated 81 Mg Tablet.) 81 mg PO DAILY [facility] Last Admin: 11/03/23 10:32 Dose: 81 mg Atorvastatin Calcium (Atorvastatin Calcium 20 Mg Tablet) 20 mg PO BEDTIME [facility] Last Admin: 11/02/23 20:40 Dose: 20 mg Bisacodyl (Bisacodyl 10 Mg Supp.Rect) 10 mg OR DAILY PRN PRN Reason: Constipation Calcium Carbonate (Calcium Carbonate 750 Mg Tab.Chew) 750 mg PO Q4H PRN PRN Reason: Heartburn Clotrimazole (Clotrimazole 1 % Cream 15 Gm Tube) 1 appl TOPICAL BID [facility] Last Admin: 11/03/23 10:38 Dose: 1 appl Enoxaparin Sodium (Enoxaparin Sodium 40 Mg/0.4 Ml Syringe) 40 mg SUBCUT Q24H [facility] Last Admin: 11/03/23 10:28 Dose: 40 mg Ferrous Sulfate (Ferrous Sulfate 324 Mg Tablet.Dr) 324 mg PO DAILY [facility] Last Admin: 11/03/23 10:31 Dose: 324 mg Finasteride (Finasteride 5 Mg Tablet) 5 mg PO DAILY [facility] Last Admin: 11/03/23 10:31 Dose: 5 mg Furosemide (Furosemide 40 Mg Tablet) 40 mg PO BID [facility]; Protocol Last Admin: 11/03/23 10:32 Dose: 40 mg Glucose (Glucose Gel 15 Gm Gel..Gram.) 15 gm PO Q15M PRN; Protocol PRN Reason: per Hypoglycemia Standing Ord. Guaifenesin (Guaifenesin 100 Mg/5 Ml Liquid) 5 ml PO Q4H PRN PRN Reason: Cough Hydrocortisone (Hydrocortisone 1 % Cream 28.35 Gm Tube) 1 appl TOPICAL TID [facility]; Protocol Last Admin: 11/03/23 10:35 Dose: 1 appl Dextrose (D10) 250 mls @ 750 mls/hr IV Q15M PRN; Protocol PRN Reason: per Hypoglycemia Standing Ord. Insulin Glargine (Insulin Glargine,Hum.Rec.Anlog 100 Unit/Ml 10 Ml Vial) 20 unit SUBCUT BEDTIME [facility] Last Admin: 11/02/23 20:51 Dose: 20 unit Insulin Human Lispro (Insulin Lispro 100 Unit/Ml 3 Ml Vial) 0 unit SUBCUT QIDACHS [facility]; Protocol Last Admin: 11/03/23 10:34 Dose: Not Given Lidocaine (Lidocaine 4 % Patch Adh..Patch) 1 patch TRANSDERMA DAILY [facility] Last Admin: 11/03/23 10:38 Dose: Not Given Magnesium Hydroxide (Milk Of Magnesia 30 Ml Oral.Susp) 30 ml PO DAILY PRN PRN Reason: Constipation Magnesium Hydroxide (Milk Of Magnesia 30 Ml Oral.Susp) 30 ml PO DAILY PRN PRN Reason: Constipation Melatonin (Melatonin 3 Mg Tablet) 6 mg PO BEDTIME PRN PRN Reason: Insomnia Metoprolol Succinate (Metoprolol Succinate Er 50 Mg Tab.Er.24h) 50 mg PO DAILY [facility]; Protocol Last Admin: 11/03/23 10:31 Dose: 50 mg Omeprazole (Omeprazole 20 Mg Capsule.Dr) 20 mg PO DAILY@0630 [facility] Last Admin: 11/03/23 06:35 Dose: 20 mg Ondansetron HCl (Ondansetron Hcl 4 Mg/2 Ml Vial) 4 mg IVPUSH Q8H PRN PRN Reason: Nausea and Vomiting Sacubitril/Valsartan (Sacubitril/Valsartan 1 Tab Tablet) 1 tab PO BID [facility]; Protocol Last Admin: 11/03/23 10:31 Dose: 1 tab Sertraline HCl (Sertraline Hcl 25 Mg Tablet) 25 mg PO DAILY [facility] Last Admin: 11/03/23 10:32 Dose: 25 mg Sodium Biphosphate/Sodium Phosphate (Sodium Phosphate,[place]-Dibasic 133 Ml Enema) 118 ml OR DAILY PRN PRN Reason: Constipation Sodium Chloride (0.9 % Sodium Chloride Flush 3 Ml Syringe) 3 ml IVFLUSH QSHIFT [facility] Last Admin: 11/03/23 10:33 Dose: 3 ml Tamsulosin HCl (Tamsulosin Hcl 0.4 Mg Capsule) 0.4 mg PO BEDTIME [facility] Last Admin: 11/02/23 20:40 Dose: 0.4 mg Trazodone HCl (Trazodone Hcl 50 Mg Tablet) 50 mg PO BEDTIME [facility] Last Admin: 11/02/23 20:40 Dose: 50 mg Triamcinolone Acetonide (Triamcinolone Acet 0.1 % Cream 15 Gm Tube) 1 appl TOPICAL BID [facility]; Protocol Last Admin: 11/03/23 10:36 Dose: 1 appl Vitamin D (Cholecalciferol (Vitamin D3) 25 Mcg Tablet) 25 mcg PO DAILY [facility] Last Admin: 11/03/23 10:32 Dose: 25 mcg Home Medications ?Medication ?Instructions ?Recorded ?Confirmed ?Last Taken ?Type acetaminophen 325 mg tablet 650 mg PO Q6H PRN Pain 09/17/23 11/01/23 Unknown History aspirin 81 mg tablet,delayed 81 mg PO DAILY 09/17/23 11/01/23 Unknown History release bisacodyl 10 mg rectal suppository 10 mg OR DAILY PRN Constipation 09/17/23 11/01/23 Unknown History cholecalciferol (vitamin D3) 25 25 mcg PO DAILY 09/17/23 11/01/23 Unknown History mcg (1,000 unit) capsule (Vitamin D3) clotrimazole 1 % lotion 1 appl topical BID 09/17/23 11/01/23 Unknown History dulaglutide 0.75 mg/0.5 mL 1.5 mg subcut TU 09/17/23 11/01/23 Unknown History subcutaneous pen injector (Trulicity) finasteride 5 mg tablet 5 mg PO DAILY 09/17/23 11/01/23 Unknown History furosemide 40 mg tablet 40 mg PO DAILY 09/17/23 11/01/23 Unknown History insulin glargine 100 unit/mL (3 26 unit subcut BEDTIME 09/17/23 11/01/23 Unknown History mL) subcutaneous pen (Basaglar KwikPen U-100 Insulin) insulin lispro 100 unit/mL 26 unit subcut TIDAC 09/17/23 11/01/23 Unknown History subcutaneous solution (Humalog U-100 Insulin) magnesium hydroxide 400 mg/5 mL 30 ml PO DAILY PRN Constipation 09/17/23 11/01/23 Unknown History oral suspension (Milk of Magnesia) omeprazole 20 mg capsule,delayed 20 mg PO DAILY 09/17/23 11/01/23 Unknown History release psyllium husk 0.4 gram capsule 0.8 g PO DAILY PRN Constipation 09/17/23 11/01/23 Unknown History (Metamucil) sertraline 25 mg tablet 25 mg PO DAILY 09/17/23 11/01/23 Unknown History simvastatin 40 mg tablet 40 mg PO BEDTIME 09/17/23 11/01/23 Unknown History sodium phosphates 19 gram-7 118 ml OR DAILY PRN Constipation 09/17/23 11/01/23 Unknown History gram/118 mL enema (Fleet Enema) tamsulosin 0.4 mg capsule 0.4 mg PO BEDTIME 09/17/23 11/01/23 Unknown History triamcinolone acetonide 0.1 % 1 appl topical BID 09/17/23 11/01/23 Unknown History topical cream ferrous sulfate 325 mg (65 mg 325 mg PO DAILY 11/01/23 11/01/23 Unknown History iron) tablet hydrocortisone 1 % topical cream 1 appl topical TID 11/01/23 11/01/23 Unknown History ipratropium 0.5 mg-albuterol 3 mg 3 ml inhalation Q6H PRN SOB 11/01/23 11/01/23 Unknown History (2.5 mg base)/3 mL nebulization soln lidocaine 5 % topical patch 1 patch topical DAILY 11/01/23 11/01/23 Unknown History metoprolol succinate 50 mg 50 mg PO DAILY 11/01/23 11/01/23 Unknown History tablet,extended release 24 hr sacubitril 24 mg-valsartan 26 mg 1 tab PO BID 11/01/23 11/01/23 Unknown History tablet (Entresto) trazodone 50 mg tablet 50 mg PO BEDTIME 11/01/23 11/01/23 Unknown History Physical Exam Vital Signs: Last Vital Signs Temp 97.5 F 11/03/23 11:35 Pulse 91 11/03/23 11:35 Resp 19 11/03/23 11:35 BP 118/63 11/03/23 11:35 Pulse Ox 92 11/03/23 11:35 O2 Del Method Nasal Cannula 11/03/23 11:35 O2 Flow Rate 2 11/03/23 11:35 Oxygen Flow Rate 4 11/01/23 03:18 BMI result Body Mass Index 35.8 Awake. Comfortable. Neck is supple. Mucosa moist. Lungs bilateral scattered rhonchi. Heart S1-S2 heard no gallop. Abdomen soft. Extremities no edema. No involuntary movements. No myoclonus. Results Lab Results 11/02/23 06:34 11/03/23 05:40 Lab results: Chemistry 11/01/23 11/02/23 11/03/23 03:46 06:34 05:40 Sodium 127 L 130 L 126 L Potassium 4.6 4.8 4.6 Carbon Dioxide 25 26 28 BUN 24 H 22 H 17 H Creatinine 1.13 0.79 0.63 Calcium 8.4 D 8.6 8.4 Hematology 11/01/23 11/02/23 03:46 06:34 WBC 14.6 H 10.6 Hgb 8.7 L 8.7 L Plt Count 195 D 199 Urine Studies 11/01/23 20:30 Urine Osmolality 300 L Assessment and Plan (1) Hyponatremia: Status: Acute Plan Elderly man with chronic hyponatremia in the setting of heart failure. He is decreased free water clearance in the setting of heart failure. Use of SSRI could be contributing to decreasing free water clearance. Recommendation Restrict oral free water intake to 1 L per 24 hours. Would not use salt tablets given the history of CHF. Can add urea powder 15 g p.o. b.i.d. x4 doses. Goal is to maintain serum sodium more than 130 millimoles. Procedures Date of Service Date of Service: 11/03/23
[2023-11-03 14:44] LABS: Osmolality, Serum 274 mosm/kg (281-305)
[2023-11-03] MEDS: Insulin Lispro 100 UNIT/ML 3 ML VIAL SUBCUT ×3 (15:08→22:01)
[2023-11-03] MEDS: ondansetron HCL 4 MG/2 ML VIAL IVPUSH ×2 (15:09→22:15)
[2023-11-03 15:46] LABS: Glucose, Whole Blood 245 mg/dL (60-115)
[2023-11-03 16:00] VITALS: BP 112/64; PULSE 91; RESP 14; TEMP 36.2; O2SAT 93
[2023-11-03 20:00] VITALS: BP 155/77; PULSE 98; RESP 16; TEMP 36.3; O2SAT 98
[2023-11-03] MEDS: traZODone HCL 50 MG TABLET PO (20:48)
[2023-11-03] MEDS: Tamsulosin HCL 0.4 MG CAPSULE PO (20:48)
[2023-11-03] MEDS: Atorvastatin Calcium 20 MG TABLET PO (20:48)
[2023-11-03] MEDS: guaiFENesin 100 MG/5 ML LIQUID PO (20:50)
[2023-11-03 21:44] LABS: Glucose, Whole Blood 187 mg/dL (60-115)
[2023-11-03] MEDS: Melatonin 3 MG TABLET 6 MG PO (22:16)
[2023-11-04] VITALS (21 sets, daily range): BP systolic 73–164; BP diastolic 40–92; PULSE 64–115; RESP 14–20; TEMP 23.5–36.2; O2SAT 97–100
[2023-11-04 00:04] LABS: Sodium Urine Random < 20.0 mmol/L
[2023-11-04 01:48] LABS: Osmolality Urine 171 mosm/kg (373-1093)
--- NOTE | 2023-11-04 03:58 | ECG_ITS ---
Test Reason : PLATFORM CONSULTANT Blood Pressure : / mmHG Vent. Rate : 072 BPM Atrial Rate : 000 BPM P-R Int : 000 ms QRS Dur : 110 ms QT Int : 406 ms P-R-T Axes : 000 -16 211 degrees QTc Int : [address] & T wave abnormality, consider inferolateral ischemia Abnormal ECG When compared with ECG of 01-NOV-2023 03:30, Atrial fibrillation has replaced Sinus rhythm Criteria for Septal infarct are no longer Present T wave inversion now evident in Inferior leads T wave inversion more evident in Anterolateral leads Referred By: Sarah Muller Electronically Signed By:Leon Marquez
[2023-11-04 04:09] LABS: ABG Base Excess -1.7 mmol/L; ABG HCO3 24 mmol/L (22-26); ABG pCO2 46 mmHg (32-45); ABG pH 7.32 (7.35-7.45); ABG pO2 89 mmHg (83-108)
[2023-11-04] MEDS: Norepinephrine Bitartrate/D5W 8 MG/250 ML PLAST..BAG 10.61 MG IV (04:20)
[2023-11-04 04:22] LABS: MANUAL DIFF FLAG NO
[2023-11-04 04:24] LABS: Basophils Percent Auto 0.3 % (0-2); Eosinophils Percent Auto 0.2 % (0-4); Hematocrit 26.3 % (42.0-52.0); Hemoglobin 8.6 g/dl (14.0-18.0); Imm Gran Abs Auto 0.15 X10*3/uL (0.00-0.03); Imm Gran Pct Auto 1.3 % (0.0-0.4); Lymphocytes Absolute Auto 1.5 X10*3/uL (1.2-4.9); Lymphocytes Percent Auto 12.9 % (20-40); Mean Corpuscular HGB Conc 32.7 g/dl (31.0-36.0); Mean Corpuscular Hemoglobin 24.3 pg (27.0-33.0); Mean Corpuscular Volume 74.3 fL (80.0-98.0); Mean Platelet Volume 9.9 fL (9.4-12.4); Monocytes Absolute Auto 0.9 X10*3/uL (0.1-1.2); Monocytes Percent Auto 7.6 % (2-11); Neutrophils Absolute Auto 9.1 x10*3/uL (2.0-8.3); Neutrophils Percent Auto 77.7 % (45-73); Platelet Count 313 X10*3/uL (160-400); Red Blood Count 3.54 X10*6/uL (4.60-5.80); Red Cell Distribution Width 15.3 % (11.0-16.0); White Blood Count 11.7 X10*3/uL (4.8-10.8)
[2023-11-04 04:34] LABS: Glucose, Whole Blood 276 mg/dL (60-115)
[2023-11-04] MEDS: propofoL 200 MG/20 ML VIAL 100 MG IVPUSH (04:34)
[2023-11-04] MEDS: Rocuronium Bromide 50 MG/5 ML VIAL IVPUSH (04:36)
[2023-11-04] MEDS: propofoL 1,000 MG/100 ML VIAL 20.38 MG IVCONT (04:37)
[2023-11-04 04:46] LABS: Lactic Acid 5.9 mmol/L (0.5-2.0)
[2023-11-04 04:51] LABS: Troponin-I High Sensitivity 50.7 ng/L (<3.5-35.0)
[2023-11-04] MEDS: DOBUTamine HCL/D5W 500 MG/250 ML IV.SOLN 16.98 MG IVCONT (04:53)
--- NOTE | 2023-11-04 05:11 | ECG_ITS ---
Test Reason : rhythm check Blood Pressure : / mmHG Vent. Rate : 111 BPM Atrial Rate : 111 BPM P-R Int : 180 ms QRS Dur : 116 ms QT Int : 326 ms P-R-T Axes : 049 -23 143 degrees QTc Int : 443 ms Sinus tachycardia Cannot rule out Anteroseptal infarct , age undetermined ST & T wave abnormality, consider lateral ischemia Abnormal ECG When compared with ECG of 04-NOV-2023 03:58, Sinus rhythm has replaced Atrial fibrillation Vent. rate has increased BY 39 BPM Minimal criteria for Anteroseptal infarct are now Present Nonspecific T wave abnormality has replaced inverted T waves in Inferior leads T wave inversion no longer evident in Anterior leads Referred By: Christina Blanco Electronically Signed By:Leon Marquez
--- NOTE | 2023-11-04 05:31 | W.PM.CCHP ---
Procedures Date of Service Date of Service: 11/04/23 Intubation Intubation Comments: Patient unable to protect airway, requiring emergent intubation. Emergent endotracheal intubation performed with 7.5-cuffed ET tube with glidescope visualization of the vocal cords with no immediate complications.? ET tube position verified on chest x-ray. Consent for Procedure: Emergent-no informed consent obtained Time out performed: Yes Sedative: propofol Mg given: 100 Paralytic: rocuronium Mg given: 50 Laryngoscope: fiber optic video scope ET tube size: 7.5 ET tube uncuffed: No Tube secured depth (cm): 23 Tube secured location: lips Tube placement confirmation: visualized tube passing through cords, equal breath sounds bilaterally, no breath sounds over epigastrium and confirmation by capnometry Patient tolerated procedure: well and no complications Intubation complications: none
--- NOTE | 2023-11-04 05:32 | W.PM.CCHP ---
Procedures Date of Service Date of Service: 11/04/23 Central Line Placement Right IJ: Central Line Comments: Right internal jugular triple lumen central venous catheter placed in usual sterile conditions under ultrasound guidance for appropriate vascular access without immediate complications. Central line position verified with Chest XRAY. Consent for Procedure: Emergent-no informed consent obtained Time out performed: Yes Sterile Technique Used: Yes Patient placed on monitor/pulse ox: Yes MD prep: mask, gown and gloves Central line prep: Chlorhexidine scrub Local anesthesia used: other anesthetic (On propofol for ETT) Ultrasound used for placement: Yes Central line lumen inserted: triple Post procedure: sutured in place, good blood return, all ports aspirated, flushed, capped and sterile dressing applied Post procedure x-ray: tip of catheter in good position and no pneumothorax seen Patient tolerated procedure: well and no complications Complications: none
[2023-11-04 05:34] LABS: VBG Base Excess 3.4 mmol/L; VBG HCO3 27 mmol/L (22-26); VBG pCO2 40 mmHg; VBG pH 7.44 (7.32-7.43); VBG pO2 61 mmHg
[2023-11-04] MEDS: Furosemide 40 MG/4 ML VIAL IVPUSH (05:36)
[2023-11-04 05:51] LABS: Anion Gap 20 (12-20); Blood Urea Nitrogen 21 mg/dL (9-16); Calcium 8.8 mg/dL (8.4-10.2); Carbon Dioxide 22 mmol/L (22-29); Chloride 86 mmol/L (96-108); Creatinine Clr Calc Pharmacy 66.4; Estimated Glomerular Filt Rate > 60; Glucose Random 289 mg/dL (60-115); Potassium 5.6 mmol/L (3.3-5.1); Sodium 122 mmol/L (135-145)
[2023-11-04 05:53] LABS: ABG Refer to POC result
[2023-11-04 05:53] LABS: Alanine Aminotransferase 138 U/L (0-40); Albumin Level 3.3 g/dL (3.5-5.0); Alkaline Phosphatase 243 U/L (39-117); Anion Gap 21 (12-20); Aspartate Amino Transferase 187 U/L (5-37); Bilirubin Total 1.1 mg/dL (0.0-1.0); Blood Urea Nitrogen 21 mg/dL (9-16); Calcium 8.8 mg/dL (8.4-10.2); Carbon Dioxide 20 mmol/L (22-29); Chloride 87 mmol/L (96-108); Creatinine Clr Calc Pharmacy 64.6; Estimated Glomerular Filt Rate > 60; Glucose Random 293 mg/dL (60-115); Potassium 5.5 mmol/L (3.3-5.1); Sodium 122 mmol/L (135-145); Total Protein 5.9 g/dL (6.5-8.0)
[2023-11-04 05:54] LABS: Venous Blood Gas Refer to POC result
--- NOTE | 2023-11-04 06:02 | P.DS_ITS ---
DS: Providers Provider Date of Service: 11/04/23 Date of admission: 11/01/23 07:13 Date of discharge: 11/04/23 Primary care physician: Unknown Physician Admitting clinician: Chelsea Corado Attending physician on admission: Chelsea Corado Consults: 11/01/23 18:12 Consult to Cardiology Routine Consulting Provider: [facility] Reason for consultation: severe w recurrent admission for CHF , symptomatic 11/03/23 10:50 Consult to Nephrology Stat Consulting Provider: [facility] Reason for consultation: hyponatremia Attending physician on discharge: Sarah Muller DS: Transfer Hospital Acceptance Reason for Transfer: Cardiogenic shock Name of Facility: [facility] DS: Diagnosis Discharge Diagnosis (1) Hyponatremia: Status: Acute (2) Cardiogenic shock: Status: Acute (3) Pulmonary edema: Status: Acute (4) CHF exacerbation: Status: Acute (5) Severe aortic stenosis: Status: Acute (6) Insulin dependent type 2 diabetes mellitus: Status: Acute (7) CAD (coronary artery disease): Status: Acute (8) Aortic stenosis: Status: Acute (9) Hyperkalemia: Status: Acute DS: Summary Hospital Course Hospital Course: This is a 82-year-old male with past medical history of? 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 who [facility] from [facility] on for evaluation of dyspnea.? ?He was admitted to Hospital Medicine for acute hypoxic respiratory failure? due to congestive heart failure exacerbation with severe aortic stenosis. He was on entresto, beta-stephon.? Strict I's and O's low-salt diet.? Cardiology was following patient and plan was to transfer to [facility] on 11/04 for TAVR with Dr. Calixto. ?Tonight, patient was a rapid response, patient? unresponsive and hypotensive to systolic of 70s.? ? Patient required transfer to the ICU and emergently intubated for airway protection.? ?Laboratory data was significant for WBC 11.7, hemoglobin 8.6, hematocrit 26.3, lactic acid 5.9 ?Troponin sensitivity 50.7 ?AB.32/46/89/24 ?Imaging:? ?Chest x-ray:? concerning for pulmonary edema ?EKG: ? with T-wave inversions on inferior and lateral leads.? ?Patient was placed on Levophed, 40 IV push Lasix? Pland and assesment 82-year-old male with past medical history of? 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 initially admitted to Hospital Medicine for acute hypoxic respiratory failure due to congestive heart failure exacerbation with severe aortic stenosis now in flash pulmonary edema.? Plan: Neuro: No acute issues? Cardiac:?? ?Cardiogenic shock/ Pulmonary edema:? 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 no flash pulmonary edema requiring emergent intubation.? Was supposed to be transferred for [facility] on 11/04 for T[address] with Dr. Calixto.? Cardiology Dr Arzola, contacted by the [facility] and patient will be transferred to CCU ?Elevated lactic acid:? this is from cardiogenic shock,? no evidence of? severe sepsis.? Pulmonary: ?Acute hypoxic respiratory failure: ? from pulmonary edema,? requiring emergent intubation for airway protection.? [place] [facility]:? ?Hyponatremia:? serum sodium 122,? seems to be chronic,? nephrology consulted? during the day,? recommended? 1 L free water intake restriction,? in urea powder 15 g p.o. B.i.d. X 4 doses? ?Hyperkalemia:? EKG with T-wave inversion,? will give Lokelma.? Endo:?? ?Under lying insulin-dependent diabetes mellitus:? on basal insulin regimen GI:?? ?Transaminitis:? will add PT and INR to labs. But this likely from shock? ID: ??Mild increase in leukocytosis,? likely related to shock no evidence of infection.? Heme/Onc:? No acute issues. Psych:? No acute issues. Miscellaneous:? No acute issues. Prophylaxis:? Lovenox/? Protonix CODE:? ? full code Attempted to call patient's but unable to reach Status at Discharge Cognitive/behavioral status at discharge: Patient intubated Overall status at discharge: patient is not back to baseline Time Attestation Total time managing care of this patient today: 120 mintues. Discharge Coordination Time (in mins): 60 Quality: Safe Use of Opioids Does Pt have an Active Cancer Diagnosis on the Problem List?: No Quality: Stroke Does the patient have a stroke diagnosis?: No Physical Exam Vital Signs: Vital Signs: Last Vital Signs Temp 96.9 F 11/04/23 04:00 Pulse 77 11/04/23 04:53 Resp 14 11/04/23 04:00 BP 148/85 H 11/04/23 05:36 Pulse Ox 98 11/04/23 04:00 O2 Del Method Oxymask 11/04/23 04:00 O2 Flow Rate 2 11/04/23 00:00 FiO2 100 11/04/23 04:57 Oxygen Flow Rate 4 11/01/23 03:18 BMI result Body Mass Index 35.8 ?General:? Intubated ?HEENT:? Head is normocephalic, atraumatic, pupils equal round reactive to light accommodation bilaterally.? Extraocular movements appear intact.? Buccal mucosa is dry, Neck is supple without lymphadenopathy. ?Cardiac:? +Murmur, clear S1-S2 ?Pulmonary:? Coarse crackles throughout. Intubated on AC setting ?Abdomen:? ?Abdomen soft, non-tender, non-distended. Normal bowel sounds. No pulsatile mass. No hepatosplenomegaly. ?Musculoskeletal:? Left BKA, Moving all 4 extremities randomly.? Gait not assessed at this point. ?Neurologic:No focal deficits noted.Motor strength as above.?? ?Skin:? Skin very pale, scattered bruises. Decubitus of left buttock Vascular:? 2+ pulses upper and lower extremity distally.? DS: Data Data Completed and Pending Completed studies during hospitalization [Text1]: Procedures Insertion of Endotracheal Airway into Trachea, Via Natural or Artificial Opening (09/17/23) Insertion of Infusion Device into Superior Vena Cava, Percutaneous Approach (09/17/23) Introduction of Vasopressor into Peripheral Vein, Percutaneous Approach (09/17/23) Performance of Cardiac Output, Single, Manual (09/17/23) Respiratory Ventilation, Less than 24 Consecutive Hours (09/17/23) Ultrasonography of Superior Vena Cava, Guidance (09/17/23) Labs on day of discharge: Laboratory Results - last 24 hr 11/03/23 11/03/2311/02/24 05:40 07:24 11:17 WBC RBC Hgb Hct MCV MCH MCHC RDW Plt Count MPV Immature Gran % (Auto) Neut % (Auto) Lymph % (Auto) Cherry % (Auto) Eos % (Auto) Baso % (Auto) Lymph # (Auto) Cherry # (Auto) Eos # (Auto) Baso # (Auto) Abs Immat Gran (auto) Absolute Neuts (auto) Absolute Nucleated RBC Nucleated RBC % (auto) O2 Saturation ABG pH at Pt Temp ABG pCO2 at Pt Temp ABG pO2 at Pt Temp ABG HCO3 ABG Base Excess (Actual) VBG pH VBG pCO2 VBG pO2 VBG HCO3 VBG O2 Saturation VBG Base Excess Sodium 126 L Potassium 4.6 Chloride 90 L Carbon Dioxide 28 Anion Gap 13 BUN 17 H Creatinine 0.63 Estim Creat Clear Calc 113.9 Estimated GFR > 60 POC Glucose 140 H 205 H Random Glucose 141 H Osmolality Lactic Acid Calcium 8.4 Total Bilirubin AST ALT Alkaline Phosphatase Troponin I High Sens Total Protein Albumin Urine Osmolality Ur Random Sodium 11/03/23 11/03/23 11/03/23 13:01 15:41 21:31 WBC RBC Hgb Hct MCV MCH MCHC RDW Plt Count MPV Immature Gran % (Auto) Neut % (Auto) Lymph % (Auto) Cherry % (Auto) Eos % (Auto) Baso % (Auto) Lymph # (Auto) Cherry # (Auto) Eos # (Auto) Baso # (Auto) Abs Immat Gran (auto) Absolute Neuts (auto) Absolute Nucleated RBC Nucleated RBC % (auto) O2 Saturation ABG pH at Pt Temp ABG pCO2 at Pt Temp ABG pO2 at Pt Temp ABG HCO3 ABG Base Excess (Actual) VBG pH VBG pCO2 VBG pO2 VBG HCO3 VBG O2 Saturation VBG Base Excess Sodium Potassium Chloride Carbon Dioxide Anion Gap BUN Creatinine Estim Creat Clear Calc Estimated GFR POC Glucose 245 H 187 H Random Glucose Osmolality 274 L Lactic Acid Calcium Total Bilirubin AST ALT Alkaline Phosphatase Troponin I High Sens Total Protein Albumin Urine Osmolality Ur Random Sodium 11/03/23 11/04/23 11/04/23 22:30 03:54 03:59 WBC RBC Hgb Hct MCV MCH MCHC RDW Plt Count MPV Immature Gran % (Auto) Neut % (Auto) Lymph % (Auto) Cherry % (Auto) Eos % (Auto) Baso % (Auto) Lymph # (Auto) Cherry # (Auto) Eos # (Auto) Baso # (Auto) Abs Immat Gran (auto) Absolute Neuts (auto) Absolute Nucleated RBC Nucleated RBC % (auto) O2 Saturation 96.0 ABG pH at Pt Temp 7.32 L ABG pCO2 at Pt Temp 46 H ABG pO2 at Pt Temp 89 ABG HCO3 24 ABG Base Excess (Actual) -1.7 VBG pH VBG pCO2 VBG pO2 VBG HCO3 VBG O2 Saturation VBG Base Excess Sodium Potassium Chloride Carbon Dioxide Anion Gap BUN Creatinine Estim Creat Clear Calc Estimated GFR POC Glucose 276 H Random Glucose Osmolality Lactic Acid Calcium Total Bilirubin AST ALT Alkaline Phosphatase Troponin I High Sens Total Protein Albumin Urine Osmolality 171 L Ur Random Sodium < 20.0 11/04/23 11/04/23 11/04/23 04:15 04:15 04:15 WBC 11.7 H RBC 3.54 L Hgb 8.6 L Hct 26.3 L MCV 74.3 L MCH 24.3 L MCHC 32.7 RDW 15.3 Plt Count 313 D MPV 9.9 Immature Gran % (Auto) 1.3 H Neut % (Auto) 77.7 H Lymph % (Auto) 12.9 L Cherry % (Auto) 7.6 Eos % (Auto) 0.2 Baso % (Auto) 0.3 Lymph # (Auto) 1.5 Cherry # (Auto) 0.9 Eos # (Auto) 0.0 Baso # (Auto) 0.0 Abs Immat Gran (auto) 0.15 H Absolute Neuts (auto) 9.1 H Absolute Nucleated RBC 0.000 Nucleated RBC % (auto) 0.0 O2 Saturation ABG pH at Pt Temp ABG pCO2 at Pt Temp ABG pO2 at Pt Temp ABG HCO3 ABG Base Excess (Actual) VBG pH VBG pCO2 VBG pO2 VBG HCO3 VBG O2 Saturation VBG Base Excess Sodium 122 L 122 L Potassium 5.6 H D 5.5 H Chloride 86 L Carbon Dioxide Anion Gap BUN Creatinine Estim Creat Clear Calc Estimated GFR POC Glucose Random Glucose Osmolality Lactic Acid Calcium Total Bilirubin AST ALT Alkaline Phosphatase Troponin I High Sens Total Protein Albumin Urine Osmolality Ur Random Sodium 11/04/23 11/04/23 11/04/23 04:15 04:15 04:15 WBC RBC Hgb Hct MCV MCH MCHC RDW Plt Count MPV Immature Gran % (Auto) Neut % (Auto) Lymph % (Auto) Cherry % (Auto) Eos % (Auto) Baso % (Auto) Lymph # (Auto) Cherry # (Auto) Eos # (Auto) Baso # (Auto) Abs Immat Gran (auto) Absolute Neuts (auto) Absolute Nucleated RBC Nucleated RBC % (auto) O2 Saturation ABG pH at Pt Temp ABG pCO2 at Pt Temp ABG pO2 at Pt Temp ABG HCO3 ABG Base Excess (Actual) VBG pH VBG pCO2 VBG pO2 VBG HCO3 VBG O2 Saturation VBG Base Excess Sodium Potassium Chloride 87 L Carbon Dioxide 22 20 L Anion Gap 20 21 H BUN 21 H Creatinine Estim Creat Clear Calc Estimated GFR POC Glucose Random Glucose Osmolality Lactic Acid Calcium Total Bilirubin AST ALT Alkaline Phosphatase Troponin I High Sens Total Protein Albumin Urine Osmolality Ur Random Sodium 11/04/23 11/04/23 11/04/23 04:15 04:15 04:15 WBC RBC Hgb Hct MCV MCH MCHC RDW Plt Count MPV Immature Gran % (Auto) Neut % (Auto) Lymph % (Auto) Cherry % (Auto) Eos % (Auto) Baso % (Auto) Lymph # (Auto) Cherry # (Auto) Eos # (Auto) Baso # (Auto) Abs Immat Gran (auto) Absolute Neuts (auto) Absolute Nucleated RBC Nucleated RBC % (auto) O2 Saturation ABG pH at Pt Temp ABG pCO2 at Pt Temp ABG pO2 at Pt Temp ABG HCO3 ABG Base Excess (Actual) VBG pH VBG pCO2 VBG pO2 VBG HCO3 VBG O2 Saturation VBG Base Excess Sodium Potassium Chloride Carbon Dioxide Anion Gap BUN 21 H Creatinine 1.08 1.11 Estim Creat Clear Calc 66.4 64.6 Estimated GFR > 60 POC Glucose Random Glucose Osmolality Lactic Acid Calcium Total Bilirubin AST ALT Alkaline Phosphatase Troponin I High Sens Total Protein Albumin Urine Osmolality Ur Random Sodium 11/04/23 11/04/23 11/04/23 04:15 04:15 04:15 WBC RBC Hgb Hct MCV MCH MCHC RDW Plt Count MPV Immature Gran % (Auto) Neut % (Auto) Lymph % (Auto) Cherry % (Auto) Eos % (Auto) Baso % (Auto) Lymph # (Auto) Cherry # (Auto) Eos # (Auto) Baso # (Auto) Abs Immat Gran (auto) Absolute Neuts (auto) Absolute Nucleated RBC Nucleated RBC % (auto) O2 Saturation ABG pH at Pt Temp ABG pCO2 at Pt Temp ABG pO2 at Pt Temp ABG HCO3 ABG Base Excess (Actual) VBG pH VBG pCO2 VBG pO2 VBG HCO3 VBG O2 Saturation VBG Base Excess Sodium Potassium Chloride Carbon Dioxide Anion Gap BUN Creatinine Estim Creat Clear Calc Estimated GFR > 60 POC Glucose Random Glucose 289 H 293 H Osmolality Lactic Acid 5.9 H* Calcium 8.8 8.8 Total Bilirubin 1.1 H AST 187 H ALT 138 H Alkaline Phosphatase 243 H Troponin I High Sens 50.7 H Total Protein 5.9 L Albumin 3.3 L Urine Osmolality Ur Random Sodium 11/04/23 05:24 WBC RBC Hgb Hct MCV MCH MCHC RDW Plt Count MPV Immature Gran % (Auto) Neut % (Auto) Lymph % (Auto) Cherry % (Auto) Eos % (Auto) Baso % (Auto) Lymph # (Auto) Cherry # (Auto) Eos # (Auto) Baso # (Auto) Abs Immat Gran (auto) Absolute Neuts (auto) Absolute Nucleated RBC Nucleated RBC % (auto) O2 Saturation ABG pH at Pt Temp ABG pCO2 at Pt Temp ABG pO2 at Pt Temp ABG HCO3 ABG Base Excess (Actual) VBG pH 7.44 H VBG pCO2 40 VBG pO2 61 VBG HCO3 27 H VBG O2 Saturation 89.0 VBG Base Excess 3.4 Sodium Potassium Chloride Carbon Dioxide Anion Gap BUN Creatinine Estim Creat Clear Calc Estimated GFR POC Glucose Random Glucose Osmolality Lactic Acid Calcium Total Bilirubin AST ALT Alkaline Phosphatase Troponin I High Sens Total Protein Albumin Urine Osmolality Ur Random Sodium Discharge Plan Discharge Anticipated Discharge Date/Time: 11/04/23 06:10 Patient Disposition: Xfer Acute Care Hospital Discharge Diagnosis: Cardiogenic shock Referrals: Physician,Unknown J [Primary Care Provider] - 1 Week Discharge Medications: Continued furosemide 40 mg tablet 40 mg PO DAILY acetaminophen 325 mg Tablet 650 mg PO Q6H PRN (Reason: Pain) aspirin 81 mg Tablet,Delayed Release (Dr/Ec) 81 mg PO DAILY triamcinolone acetonide 0.1 % cream 1 appl topical BID Rx Instructions: apply to generalized areas of rash simvastatin 40 mg tablet 40 mg PO BEDTIME magnesium hydroxide [Milk of Magnesia] 400 mg/5 mL Suspension 30 ml PO DAILY PRN (Reason: Constipation) Rx Instructions: if no bowel movement for 3 days tamsulosin 0.4 mg capsule 0.4 mg PO BEDTIME bisacodyl 10 mg Suppository 10 mg OH DAILY PRN (Reason: Constipation) Rx Instructions: if no bowel movement for 8 hours after milk of magnesia Fleet Enema 19-7 gram/118 mL Enema 118 ml OH DAILY PRN (Reason: Constipation) Rx Instructions: if no bowel movement 8 hours after bisacodyl suppository sertraline 25 mg Tablet 25 mg PO DAILY omeprazole 20 mg capsule,delayed release(DR/EC) 20 mg PO DAILY insulin lispro [Humalog U-100 Insulin] 100 unit/mL Solution 26 unit SUBCUT TIDAC finasteride 5 mg tablet 5 mg PO DAILY clotrimazole 1 % Lotion 1 appl TOPICAL BID Rx Instructions: apply to generalized rash cholecalciferol (vitamin D3) [Vitamin D3] 25 mcg (1,000 unit) Capsule 25 mcg PO DAILY insulin glargine [Basaglar KwikPen U-100 Insulin] 100 unit/mL (3 mL) Insulin Pen 26 unit SUBCUT BEDTIME Trulicity 0.75 mg/0.5 mL Pen Injector 1.5 mg SUBCUT Rx Instructions: 2 injections of the 0.75mg pen every Monday confirmed with facility psyllium husk [Metamucil] 0.4 gram Capsule 0.8 g PO DAILY PRN (Reason: Constipation) trazodone 50 mg tablet 50 mg PO BEDTIME hydrocortisone 1 % Cream 1 appl TOPICAL TID Rx Instructions: Apply to upper and lower back and arms every shift. ferrous sulfate 325 mg (65 mg iron) Tablet 325 mg PO DAILY lidocaine 5 % Adhesive Patch,Medicated 1 patch TOPICAL DAILY Rx Instructions: leave on most painful area for up to 12 hrs Entresto 24-26 mg tablet 1 tab PO BID metoprolol succinate 50 mg tablet extended release 24 hr 50 mg PO DAILY Rx Instructions: HOLD IF SBP IS LESS THAN 100 Held ipratropium-albuterol 0.5 mg-3 mg(2.5 mg base)/3 mL solution for nebulization 3 ml inhalation Q6H PRN (Reason: SOB) Hold Instructions: Resume on 11/06/23. Discharge Orders: Discharge Order (Routine); Ordered 11/04/23 Ordered By: Christina Blanco Activity on Discharge: As tolerated Stand Alone Forms: Patient Portal Discharge page Print Language: Malay Care Plan Goals: Management of cardiogenic shock Health Concerns: Management of cardiogenic shock Plan of Treatment: Management cardiogenic shock Assessment: See discharge summary
--- NOTE | 2023-11-04 06:16 | PM.CCN ---
Critical Care Event Note Summary Date of Service: 11/04/23 Code activated: No Narrative: This case had a high probability of a clinically significant, sudden, or life threatening deterioration of this patient's condition which required my full and direct attention, intervention and personal management. Critical Care Time (minutes): 120 Comment: This is a 82-year-old male with past medical history of? 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 who presented from residential facility on for evaluation of dyspnea.? ?He was admitted to Hospital Medicine for acute hypoxic respiratory failure? due to congestive heart failure exacerbation with severe aortic stenosis. He was on entresto, beta-stephon.? Strict I's and O's low-salt diet.? Cardiology was following patient and plan was to transfer to [facility] on 11/04 for TAVR with Dr. Calixto. ?Tonight, patient was a rapid response, patient? unresponsive and hypotensive to systolic of 70s.? ? Patient required transfer to the ICU and emergently intubated for airway protection.? ?Laboratory data was significant for WBC 11.7, hemoglobin 8.6, hematocrit 26.3, lactic acid 5.9 ?Troponin sensitivity 50.7 ?AB.32///24 ?Imaging:? ?Chest x-ray:? concerning for pulmonary edema ?EKG: ? with T-wave inversions on inferior and lateral leads.? ?Patient was placed on Levophed, 40 IV push Lasix? ?Cardiology,? ooq,? informed patient change in clinical status, contacted by the [facility] and patient will be transferred to CCU ? 82-year-old male with past medical history of? 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 initially admitted to Hospital Medicine for acute hypoxic respiratory failure due to congestive heart failure exacerbation with severe aortic stenosis now in flash pulmonary edema.? Plan: Neuro: No acute issues? Cardiac:?? ?Cardiogenic shock/ Pulmonary edema:? 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 no flash pulmonary edema requiring emergent intubation.? Was supposed to be transferred for [facility] on 11/04 for TAVR with Dr. Calixto.? Cardiology Dr Arzola, contacted by the [facility] and patient will be transferred to CCU ?Elevated lactic acid:? this is from cardiogenic shock,? no evidence of? severe sepsis.? Pulmonary: ?Acute hypoxic respiratory failure: ? from pulmonary edema,? requiring emergent intubation for airway protection.? [place] [facility] [place]al:? ?Hyponatremia:? serum sodium 122,? seems to be chronic,? nephrology consulted? during the day,? recommended? 1 L free water intake restriction,? in urea powder 15 g p.o. B.i.d. X 4 doses? ?Hyperkalemia:? EKG with T-wave inversion,? will give Lokelma.? Endo:?? ?Under lying insulin-dependent diabetes mellitus:? on basal insulin regimen GI:?? ?Transaminitis:? will add PT and INR to labs. But this likely from shock? ID: ??Mild increase in leukocytosis,? likely related to shock no evidence of infection.? Heme/Onc:? No acute issues. Psych:? No acute issues. Miscellaneous:? No acute issues. Prophylaxis:? Lovenox/? Protonix CODE:? ? full code Attempted to call but unable to reach
[2023-11-04 06:21] LABS: Reflex Lactate? Lactic Acid Added
--- NOTE | 2023-11-04 06:23 | P.EN_ITS ---
Event Note Date of Service: 11/04/23 Event Note: CHEESEMAKER activated. Pt became barely responsive. O2 sats dropped the 80s. SBP dropped to the 90s. No tachycardia noted. Cardiopulmonary exam is remarkable holosystolic murmur and bilateral crackles. ECG stat showed T-wave inversion in the lateral leads + inferior leads changes ABGs stat consistent with respiratory acidosis. CXR stat showed faint bilateral lung opacities. Blood workup including, CBC, CMP, troponin and lactic acid ordered stat. Head CT scan stat ordered as well. Discussed and evaluated by ICU team. Patient was transferred to intensive care unit. He is now intubated/mechanical ventilation as well as receiving treatment with vasopressors. Dr. Ko, information technology security analyst, was contacted and arranged transfer to [facility] as the patient needs TVAR. I tried to contact patient's but the call did not progress. I was able to contact patient's nursing facility [facility] staff member who commented that patient's has been having problems with her phone and will try to reach her to let her know that Col[facility] clinical condition has worsened and has been transferred to the ICU. Time Spent With Patient Time: Total time managing care of this patient today ____ minutes.
[2023-11-04] MEDS: Sodium Zirconium Cyclosilicate 10 GM POWD.PACK PO (06:26)
[2023-11-04] MEDS: Pantoprazole Sodium 40 MG/10 ML VIAL IVPUSH (06:33)
[2023-11-04] MEDS: propofoL 1,000 MG/100 ML VIAL 33.96 MG IVCONT (06:52)
--- NOTE | 2023-11-04 07:43 | PC.NURSE ---
Pt transferred to ICU from [facility] s/p [employer] for AMS, SBP 70s- levophed started on floor by this RN, titrated per JUN. Upon initial assessment- pt lethargic, responding only to noxious stimuli, weakly MARTINEZ. Intubated upon arrival to ICU. Given propofol 100 mg IVP and rocuronium 50 mg IVP for RSI. Propofol gtt started for sedation and titrated per JUN. ETT #7.5, 25 cm at lip. On ACVC settings. TLC placed to R IJ. OGT placed. All lines/tubes confirmed by pCXR. Dobutamine gtt briefly started but titrated off per provider. EKG obtained. Lasix 40 IVP given x1, LS with coarse crackles throughout. Labs obtained, RATE ENGINEER aware , new order for lokelma 10 gm via OGT x1. Decision made to transfer pt to [facility], report given to receiving facility RNMary. EMS at bedside at approx 0700. Pt left unit at approx 0730. See EMR for further details.
== END 2023-11-04 07:30 | disposition short-term general hospital (02) | DRG 208 ==
LOC: HO.ED 05:34 → HO.EDOVER 07:16 → HO.S3 16:25 → HO.EDOVER 18:25 → HO.IMC 19:25 → HO.ICU 11-04 04:32
PROVIDERS: Internal Medicine; Registered Nurse Community Health; Admitting Provider Student in an Organized Health Care Education/Training Program; Emergency Provider Emergency Medicine Emergency Medical Services; PCP Emergency Medicine; Visit Provider Internal Medicine Critical Care Medicine
DX: J96.01 Acute respiratory failure with hypoxia (principal); I50.43 Acute on chronic combined systolic (congestive) and diastolic (congestive) heart failure; R57.0 Cardiogenic shock; E87.1 Hypo-osmolality and hyponatremia; G47.33 Obstructive sleep apnea (adult) (pediatric); E87.5 Hyperkalemia; I25.10 Atherosclerotic heart disease of native coronary artery without angina pectoris; E78.2 Mixed hyperlipidemia; F39 Unspecified mood [affective] disorder; I35.0 Nonrheumatic aortic (valve) stenosis; N40.0 Benign prostatic hyperplasia without lower urinary tract symptoms; L89.151 Pressure ulcer of sacral region, stage 1; Z20.822 Contact with and (suspected) exposure to COVID-19; Z96.0 Presence of urogenital implants; Z87.891 Personal history of nicotine dependence; Z89.512 Acquired absence of left leg below knee; Z95.5 Presence of coronary angioplasty implant and graft; Z79.82 Long term (current) use of aspirin; Z79.4 Long term (current) use of insulin; Z79.85 Long-term (current) use of injectable non-insulin antidiabetic drugs; Z79.899 Other long term (current) drug therapy
CPT/HCPCS: 0241U; 36415; 36600; 71045; 71250; 80048; 80053; 82803; 82947; 83605; 83880; 83930; 83935; 84300; 84484; 85025; 93005; 94002; 94799; 97162; 99285; J1250; J1650; J1940; J2405; J2470; J2704

== ENCOUNTER → 2023-11-01 03:30 | Outpatient (BNV) | payer MEDICARE, OTHER, MEDICAID, SELFPAY | PROVIDERS: Admitting Provider Student in an Organized Health Care Education/Training Program; Emergency Provider Emergency Medicine Emergency Medical Services; Visit Provider Internal Medicine Cardiovascular Disease | DX: R94.31 Abnormal electrocardiogram [ECG] [EKG] (principal) | CPT/HCPCS: 93010 ==

== ENCOUNTER 2023-11-01 07:13 | Outpatient (BNV) | payer MEDICARE, OTHER, MEDICAID, SELFPAY | END 2023-11-04 05:11 | PROVIDERS: Admitting Provider Student in an Organized Health Care Education/Training Program; Emergency Provider Emergency Medicine Emergency Medical Services; Visit Provider Internal Medicine Cardiovascular Disease | DX: R94.31 Abnormal electrocardiogram [ECG] [EKG] (principal) | CPT/HCPCS: 93010 ==

== ENCOUNTER → 2023-11-01 07:13 | Outpatient (BNV) | payer MEDICARE, OTHER, MEDICAID, SELFPAY | PROVIDERS: Admitting Provider Student in an Organized Health Care Education/Training Program; Emergency Provider Emergency Medicine Emergency Medical Services; Visit Provider Internal Medicine Hypertension Specialist | DX: E87.1 Hypo-osmolality and hyponatremia (principal); I50.9 Heart failure, unspecified | CPT/HCPCS: 99223 ==

== ENCOUNTER → 2023-11-01 07:13 | Outpatient (BNV) | payer MEDICARE, OTHER, MEDICAID, SELFPAY | PROVIDERS: Admitting Provider Student in an Organized Health Care Education/Training Program; Emergency Provider Emergency Medicine Emergency Medical Services; Visit Provider Registered Nurse Community Health | DX: E87.1 Hypo-osmolality and hyponatremia (principal); R57.0 Cardiogenic shock; J81.1 Chronic pulmonary edema; I50.9 Heart failure, unspecified; I35.0 Nonrheumatic aortic (valve) stenosis; E11.9 Type 2 diabetes mellitus without complications; Z79.4 Long term (current) use of insulin; I25.10 Atherosclerotic heart disease of native coronary artery without angina pectoris; E87.5 Hyperkalemia | CPT/HCPCS: 31500; 36556; 76937; 99291; 99292 ==

== ENCOUNTER → 2023-11-01 07:13 | Outpatient (BNV) | payer MEDICARE, OTHER, MEDICAID, SELFPAY | PROVIDERS: Admitting Provider Student in an Organized Health Care Education/Training Program; Emergency Provider Emergency Medicine Emergency Medical Services; Visit Provider Student in an Organized Health Care Education/Training Program | DX: J96.01 Acute respiratory failure with hypoxia (principal); I50.23 Acute on chronic systolic (congestive) heart failure | CPT/HCPCS: 99223; 99232; 99233; 99499 ==

== ENCOUNTER → 2023-11-01 07:13 | Outpatient (BNV) | payer MEDICARE, OTHER, MEDICAID, SELFPAY | PROVIDERS: Admitting Provider Student in an Organized Health Care Education/Training Program; Emergency Provider Emergency Medicine Emergency Medical Services; Visit Provider Internal Medicine Cardiovascular Disease | DX: I35.0 Nonrheumatic aortic (valve) stenosis (principal); I50.9 Heart failure, unspecified | CPT/HCPCS: 99223; 99233 ==